=== PATIENT | female | born 1980 | race Caucasian/White ===

== ENCOUNTER 2016-08-14 10:49 | Emergency (ER) | payer OTHER ==
[2016-08-14] MEDS ORDERED: ONDANSETRON 4MG/2ML VIAL (J2405) As Ordered ONE (11:55)
[2016-08-14 12:23] LABS: BASO % 0.4 % (0.0-1.0); EOS # 0.1 K/mm3 (0.0-0.50); LARGE UNSTAINED CELL # 0.1 K/mm3 (0.0-0.4); LYMPH # 1.6 K/mm3 (1.5-4.5); LYMPH % 28.2 % (24.0-44.0); MEAN CORPUSCULAR HEMOGLOBIN 30.6 pg (27.0-33.0); MEAN CORPUSCULAR HGB CONC 35.1 g/dl (32.0-36.5); MEAN CORPUSCULAR VOLUME 87.3 fl (80.0-96.0); MONO # 0.3 K/mm3 (0.0-0.8); MONO % 5.7 % (0.0-5.0); NEUTROPHILS # 3.2 K/mm3 (1.8-7.7); NEUTROPHILS % 61.7 % (36.0-66.0); PLATELET COUNT, AUTOMATED 205 k/mm3 (150-450); RED CELL DISTRIBUTION WIDTH 11.9 % (11.5-14.5); WHITE BLOOD COUNT 5.2 K/mm3 (4.0-10.0)
[2016-08-14 12:45] LABS: ANION GAP 7 MEQ/L (8-16); BLOOD UREA NITROGEN 15 MG/DL (7-18); CALCIUM LEVEL 8.7 MG/DL (8.5-10.1); CARBON DIOXIDE LEVEL 29 MEQ/L (21-32); CHLORIDE LEVEL 104 MEQ/L (98-107); CREATININE FOR GFR 0.76 MG/DL (0.55-1.02); GLOMERULAR FILTRATION RATE > 60.0 (>60); GLUCOSE, FASTING 88 MG/DL (70-105); SODIUM LEVEL 140 MEQ/L (136-145)
[2016-08-14] MEDS ORDERED: KETOROLAC 30 MG/ML VIAL (J1885) As Ordered ONE (13:25)
[2016-08-14 13:27] LABS: INR 0.95
--- NOTE | 2016-08-14 14:45 | EDDOCDS ---
Physician Documentation [facility] Name: Randi Paz Age: 36 yrs Sex: Female : 1980 Arrival Date: 08/14/2016 Time: 10:49 Bed 11 Private MD: Disposition: 08/14/16 13:44 Discharged to Home/Self Care. Impression: Palpitations, Viral infection, unspecified. - Condition is Stable. - Discharge Instructions: Palpitations, Viral Infections. - Medication Reconciliation, Local Pharmacy Hours form. - Follow up: Private Physician; When: Call to arrange an appointment; Reason: Further diagnostic work-up, Recheck today's complaints, Continuance of care. - Problem is new. - Symptoms are unchanged. Historical: - Allergies: norethindrone (bulk); Nortriptyline; Protopic; adhesives tape; - Home Meds: 1. midadrine 5 mg three times a day 2. potassium citrate 10 mEq (1,080 mg) oral TbER 2 tabs twice a day 3. Depakote 250 mg Oral TbEC 1 tab 2 times per day 4. Adderall XR 20 mg Oral cp24 1 cap once daily 5. magnesium oxide 400 mg Oral tab twice a day 6. B2 100 mg daily 7. vitmain d 2000 units daily 8. gabapentin 6% cream as needed 9. Tylenol 1000mg Oral as needed (Last dose: 08/14/2016 06:30) - PMHx: ADD; cervical stenosis; lichen sclerosis; Migraines; neck pain; sponge kidneys; lightheadedness; hypokalemia; - PSHx: Carpal Tunnel Repair- Bilateral; Cholecystectomy; Tonsillectomy; Breast Augmentation; Breast Reduction; tummy tuck; partial hysterectomy; ganglion cyst; periurethral cyst; Laparoscopy; labial plasty; Tubal ligation; - Social history: Smoking status: Patient states former smoker of tobacco. No barriers to communication noted, The patient speaks fluent Estonian, Speaks appropriately for age. - Family history: No immediate family members are acutely ill. - : The pt / caregiver states he / she is not on anticoagulants. Home medication list is obtained from the patient. - Exposure Risk Screening:: None identified. 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 2 in. (157.48 cm); Pain 4/10; 13:46 BP 103 / 64 (auto/); mb9 13:46 Pulse 82 MON; Resp 17; Temp 97.4(T); Pulse Ox 98% ; Pain 0/10; mb9 10:51 Body Mass Index 26.52 (65.77 kg, 157.48 cm) [facility] MDM: 11:27 [facility] Payment Agreement was scanned into [employer] and attached to record. lg 11:28 Financial registration complete. lg 11:34 Child Care Teacher/Pulse Ox/q 30 min VS ordered. btw 11:34 IV Saline Lock ordered. btw 11:34 Rhythm Strip to chart ordered. btw 11:34 Ondansetron 4 mg IVP once ordered. btw 11:34 NS 0.9% 1000 ml IV at bolus once ordered. btw 11:39 BASIC METABOLIC PROFILE Ordered. EDMS 11:40 CBC WITH DIFFERENTIAL Ordered. EDMS 11:40 CARDIAC MARKER PANEL Ordered. EDMS 11:41 ECG WITH READING ER PHYS ordered. EDMS 12:56 Prothrombin Time Profile\E\INR Ordered. EDMS 12:57 Urinalysis Ordered. EDMS 12:57 Urine Culture Ordered. EDMS 13:04 D-DIMER QUANT Ordered. EDMS 13:12 BASIC METABOLIC PROFILE Reviewed. btw 13:12 CBC WITH DIFFERENTIAL Reviewed. btw 13:12 CARDIAC MARKER PANEL Reviewed. btw 13:20 ketorolac 30 mg IVP once ordered. btw 13:34 Urinalysis Reviewed. btw 13:34 Prothrombin Time Profile\E\INR Reviewed. btw 13:34 D-DIMER QUANT Reviewed. btw Administered Medications: 12:20 Drug: Ondansetron 4 mg [ondansetron HCl 2 mg/mL intravenous solution (2 mL)] Route: mb9 IVP; Site: right antecubital; 13:23 Follow up: Response: Nausea is resolved mb9 12:20 Drug: NS 0.9% 1000 ml [sodium chloride 0.9 % intravenous solution] Route: IV; Rate: mb9 bolus; Site: right antecubital; 13:28 Drug: ketorolac 30 mg [ketorolac 30 mg/mL (1 mL) injection solution (1 mL)] Route: IVP; mb9 Site: right antecubital; Signatures: Dispatcher [employer] EDMS Ingrid Hanley, RN RN Sharon Strange, Linden Reg lg Marco Mcintosh PA PA btw Belles, MichaelRN RN mb9 The chart was reviewed and I authenticate all verbal orders and agree with the evaluation and treatment provided.Corrections: (The following items were deleted from the chart) 13:03 12:56 BASIC METABOLIC PROFILE+LAB ordered. EDMS EDMS 13:03 12:56 CBC WITH DIFFERENTIAL+LAB ordered. EDMS EDMS 13:03 12:56 CARDIAC INJURY PROFILE+LAB ordered. EDMS EDMS 13:03 12:56 TROPONIN+LAB ordered. EDMS EDMS 13:03 12:57 D-DIMER QUANT+LAB ordered. EDMS EDMS 13:45 12:57 ECG WITH READING ER PHYS+CARDIAG ordered. EDMS EDMS Attachments: 11:27 [facility] Payment Agreement lg MTDD
--- NOTE | 2016-08-14 14:45 | EDDOCDS ---
Nurse's Notes [facility] Name: Randi Paz Age: 36 yrs Sex: Female : 1980 Arrival Date: 08/14/2016 Time: 10:49 Bed 11 Private MD: Diagnosis: Palpitations;Viral infection, unspecified Presentation: 08/14 10:54 Presenting complaint: Patient states: nausea and fluttering in chest. nausea is common srm for her but worse the last few days. pain in arms, legs, low back and abd pain. hx of sponge kidney disease so has a lot of low back pain. legs hurts frequently. was on augmentin 2 weeks ago. then z pack for ear pain, ? strep. yesterday urinated a lot and today not as much. history of sever lightheadedness and that's getting worse. saw PMD last week and was told to drink more water. Acute neurological deficits are not present. Mechanism of Injury: No Mechanism of Injury. Adult Sepsis Screening: The patient does not have new or worsening altered mentation. Patient's respiratory rate is less than 22. Systolic blood pressure is greater than 100. Patient has a qSOFA score of 0- Negative Sepsis Screen. Suicide/Homicide risk assessment- the patient denies having any suicidal and/or homicidal ideations and does not present with any other emotional, behavioral or mental health complaints. Status: The patient is a dependent. Transition of care: patient was not received from another setting of care. 10:54 Acuity: KEITH Level 3 srm 10:54 Method Of Arrival: Walkin/Carried/Asstd srm Triage Assessment: 11:00 General: Appears in no apparent distress, Behavior is appropriate for age, cooperative. srm Pain: Pain currently is 4 out of 10 on a pain scale. HIV screening NA for this visit Offered previously. Musculoskeletal: Reports arms, legs hurt. 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 midadrine 5 mg three times a day 2. potassium citrate 10 mEq (1,080 mg) oral TbER 2 tabs twice a day 3. Depakote 250 mg Oral TbEC 1 tab 2 times per day 4. Adderall XR 20 mg Oral cp24 1 cap once daily 5. magnesium oxide 400 mg Oral tab twice a day 6. B2 100 mg daily 7. vitmain d 2000 units daily 8. gabapentin 6% cream as needed 9. Tylenol 1000mg Oral as needed (Last dose: 08/14/2016 06:30) - PMHx: ADD; cervical stenosis; lichen sclerosis; Migraines; neck pain; sponge kidneys; lightheadedness; hypokalemia; - PSHx: Carpal Tunnel Repair- Bilateral; Cholecystectomy; Tonsillectomy; Breast Augmentation; Breast Reduction; tummy tuck; partial hysterectomy; ganglion cyst; periurethral cyst; Laparoscopy; labial plasty; Tubal ligation; - Social history: Smoking status: Patient states former smoker of tobacco. No barriers to communication noted, The patient speaks fluent Indonesian, Speaks appropriately for age. - Family history: No immediate family members are acutely ill. - : The pt / caregiver states he / she is not on anticoagulants. Home medication list is obtained from the patient. - Exposure Risk Screening:: None identified. Screenin:20 Screening information is obtained from the patient. Fall risk: No risks identified. mb9 Assistance ADL's: requires no assistance with activities of daily living. Abuse/DV Screen: The patient / caregiver reports he/she is: not in a situation that causes fear, pain or injury. Nutritional screening: No deficits noted. Advance Directives: There is no active DNR order. home support is adequate. Assessment: 12:19 General: Appears in no apparent distress, Behavior is appropriate for age, cooperative. mb9 Pain: Denies pain. Neurological: Level of Consciousness is awake, alert, Oriented to person, place, time. Cardiovascular: Heart tones S1 S2 present Rhythm is sinus tachycardia. Respiratory: Airway is patent Respiratory effort is even, unlabored, Breath sounds are clear bilaterally. 13:22 Reassessment: Patient appears in no apparent distress at this time. Patient states mb9 feeling better. General: Appears in no apparent distress, comfortable, Behavior is appropriate for age, cooperative. Pain: Location: headache Pain currently is 3 out of 10 on a pain scale. Respiratory: Airway is patent Respiratory effort is even, unlabored. Vital Signs: 10:51 BP 136 / 77; Pulse 113; Resp 18; Temp 98.2; Pulse Ox 98% ; Weight 65.77 kg; Height 5 jlm ft. 2 in. (157.48 cm); Pain 4/10; 13:46 BP 103 / 64 (auto/); mb9 13:46 Pulse 82 MON; Resp 17; Temp 97.4(T); Pulse Ox 98% ; Pain 0/10; mb9 10:51 Body Mass Index 26.52 (65.77 kg, 157.48 cm) [facility] Vitals: 10:51 Log In Time: August 14, 2016 at 10:51. [facility] ED Course: 10:51 Patient visited by Stephanie Sen, Assistant Elementary Teacher. [facility] 10:51 Patient moved to Waiting [facility] 10:57 Triage Initiated srm 11:01 Patient moved to Triage 2 srm 11:27 Marco Mcintosh PA is PHCP. btw 11:27 Vale Padron MD is Attending Physician. btw 11:27 [facility] Payment Agreement was scanned into [email or web address] and attached to record. 11:28 Patient visited by Marco Mcintosh PA. btw 11:48 Patient moved to 9 [facility] 11:53 Kisha Blankenship,RN is Primary Nurse. [facility] 11:53 Patient moved to 11 kp 12:10 Patient visited by Susan Julian. sew 12:10 change release manager on. Pulse ox on. NIBP on. sew 12:10 EKG done. (by ED staff). Reviewed by Marco RICCI. sew 12:19 CARDIAC MARKER PANEL Sent. mb9 12:19 CBC WITH DIFFERENTIAL Sent. mb9 12:19 BASIC METABOLIC PROFILE Sent. mb9 12:20 The patient / caregiver is instructed regarding the plan of care and ED course. mb9 12:20 Inserted saline lock: 18 gauge in right antecubital area and blood collected. The mb9 patient tolerated the procedure well. 13:15 D-DIMER QUANT Sent. mb9 13:15 Urine Culture Sent. mb9 13:15 Urinalysis Sent. mb9 13:23 Patient visited by Orion Payne RN. mb9 13:46 Discontinued IV lock intact, bleeding controlled, pressure dressing applied, No mb9 redness/swelling at site. No procedures done that require assistance. Administered Medications: 12:20 Drug: Ondansetron 4 mg [ondansetron HCl 2 mg/mL intravenous solution (2 mL)] Route: mb9 IVP; Site: right antecubital; 13:23 Follow up: Response: Nausea is resolved 9 12:20 Drug: NS 0.9% 1000 ml [sodium chloride 0.9 % intravenous solution] Route: IV; Rate: mb9 bolus; Site: right antecubital; 13:28 Drug: ketorolac 30 mg [ketorolac 30 mg/mL (1 mL) injection solution (1 mL)] Route: IVP; mb9 Site: right antecubital; Order Results: Lab Order: Prothrombin Time Profile\E\INR; SPEC'M 08/14/16 12:16 Test: PROTHROMBIN TIME; Value: 12.8; Range: 12.3-14.5; Units: SECONDS; Status: F Test: INR; Value: 0.95; Status: F Test Note: ; THERAPUTIC HUMAN INR VALUES INDICATIONS NORMAL RANGES PROPHYLAXIS/TREATMENT OF: VENOUS THROMBOSIS 2.0-3.0 PULMONARY EMBOLISM 2.0-3.0 PREVENTION OF SYSTEMIC EMBOLISM FROM: TISSUE HEART VALVES 2.0-3.0 ACUTE MYOCARDIAL INFARCTION 2.0-3.0 VALVULAR HEART DISEASE 2.0-3.0 ATRIAL FIBRILLATION 2.0-3.0 MECHANICAL VALVES(HIGH RISK) 2.5-3.5 RECURRENT MYOCARDIAL INFARCTION 2.5-3.5 Lab Order: Urinalysis; SPEC'M 08/14/16 13:12 Test: APPEARANCE, URINE; Value: CLEAR; Range: CLEAR; Status: F Test: COLOR, URINE; Value: YELLOW; Range: YELLOW; Status: F Test: PH,URINE; Value: 8.0; Range: 5.0-9.0; Units: UNITS; Status: F Test: SPECIFIC GRAVITY URINE AUTO; Value: 1.024; Range: 1.002-1.035; Status: F Test: PROTEIN, URINE AUTO; Value: 1+; Range: NEGATIVE; Abnormal: Above high normal; Units: mg/dL; Status: F Test: GLUCOSE, URINE (UA) AUTO; Value: NEGATIVE; Range: NEGATIVE; Units: mg/dL; Status: F Test: KETONE, URINE AUTO; Value: TRACE; Range: NEGATIVE; Abnormal: Above high normal; Units: mg/dL; Status: F Test: UROBILINOGEN, URINE AUTO; Value: 0.2; Range: 0.0-2.0; Units: mg/dL; Status: F Test: BILIRUBIN, URINE AUTO; Value: NEGATIVE; Range: NEGATIVE; Status: F Test: NITRITE, URINE AUTO; Value: NEGATIVE; Range: NEGATIVE; Status: F Test: LEUKOCYTE ESTERASE, URINE AUTO; Value: NEGATIVE; Range: NEGATIVE; Status: F Test: BLOOD, URINE BLOOD; Value: NEGATIVE; Range: NEGATIVE; Status: F Test: WBC, URINE AUTO; Value: 0; Range: 0-3; Units: /HPF; Status: F Test: RBC, URINE AUTO; Value: 4; Range: 0-3; Abnormal: Above high normal; Units: /HPF; Status: F Test: BACTERIA, URINE AUTO; Value: NEGATIVE; Range: NEGATIVE; Status: F Test: SQUAMOUS EPITHELIAL CELL UR AU; Value: 1; Range: 0-6; Units: /HPF; Status: F Test: MUCUS, URINE; Value: SMALL; Range: NEGATIVE; Status: F Test: HYALINE CAST, URINE AUTO; Value: 0; Range: 0-1; Units: /LPF; Status: F Lab Order: BASIC METABOLIC PROFILE; [facility] 08/14/16 12:16 Test: GLUCOSE, FASTING; Value: 88; Range: 70-105; Units: MG/DL; Status: F Test: BLOOD UREA NITROGEN; Value: 15; Range: 7-18; Units: MG/DL; Status: F Test: CREATININE FOR GFR; Value: 0.76; Range: 0.55-1.02; Units: MG/DL; Status: F Test: GLOMERULAR FILTRATION RATE; Value: > 60.0; Range: >60; Status: F Test: SODIUM LEVEL; Value: 140; Range: 136-145; Units: MEQ/L; Status: F Test: POTASSIUM SERUM; Value: 4.0; Range: 3.5-5.1; Units: MEQ/L; Status: F Test: CHLORIDE LEVEL; Value: 104; Range: 98-107; Units: MEQ/L; Status: F Test: CARBON DIOXIDE LEVEL; Value: 29; Range: 21-32; Units: MEQ/L; Status: F Test: ANION GAP; Value: 7; Range: 8-16; Abnormal: Below low normal; Units: MEQ/L; Status: F Test: CALCIUM LEVEL; Value: 8.7; Range: 8.5-10.1; Units: MG/DL; Status: F Test Note: ; Units are mL/min/1.73 m2 Chronic Kidney Disease Staging per NKF: Stage I & II GFR >=60 Normal to Mildly Decreased Stage III GFR 30-59 Moderately Decreased Stage IV GFR 15-29 Severely Decreased Stage V GFR <15 Very Little GFR Left ESRD GFR <15 on REIMBURSEMENT LIAISON Lab Order: CBC WITH DIFFERENTIAL; [facility] 08/14/16 12:16 Test: WHITE BLOOD COUNT; Value: 5.2; Range: 4.0-10.0; Units: K/mm3; Status: F Test: RED BLOOD COUNT; Value: 4.50; Range: 4.00-5.40; Units: M/mm3; Status: F Test: HEMOGLOBIN; Value: 13.8; Range: 12.0-16.0; Units: g/dl; Status: F Test: HEMATOCRIT; Value: 39.3; Range: 36.0-47.0; Units: %; Status: F Test: MEAN CORPUSCULAR VOLUME; Value: 87.3; Range: 80.0-96.0; Units: fl; Status: F Test: MEAN CORPUSCULAR HEMOGLOBIN; Value: 30.6; Range: 27.0-33.0; Units: pg; Status: F Test: MEAN CORPUSCULAR HGB CONC; Value: 35.1; Range: 32.0-36.5; Units: g/dl; Status: F Test: RED CELL DISTRIBUTION WIDTH; Value: 11.9; Range: 11.5-14.5; Units: %; Status: F Test: PLATELET COUNT, AUTOMATED; Value: 205; Range: 150-450; Units: k/mm3; Status: F Test: NEUTROPHILS %; Value: 61.7; Range: 36.0-66.0; Units: %; Status: F Test: LYMPH %; Value: 28.2; Range: 24.0-44.0; Units: %; Status: F Test: MONO %; Value: 5.7; Range: 0.0-5.0; Abnormal: Above high normal; Units: %; Status: F Test: EOS %; Value: 2.0; Range: 0.0-3.0; Units: %; Status: F Test: BASO %; Value: 0.4; Range: 0.0-1.0; Units: %; Status: F Test: LARGE UNSTAINED CELL %; Value: 2.0; Range: 0.0-4.0; Units: %; Status: F Test: NEUTROPHILS #; Value: 3.2; Range: 1.8-7.7; Units: K/mm3; Status: F Test: LYMPH #; Value: 1.6; Range: 1.5-4.5; Units: K/mm3; Status: F Test: MONO #; Value: 0.3; Range: 0.0-0.8; Units: K/mm3; Status: F Test: EOS #; Value: 0.1; Range: 0.0-0.50; Units: K/mm3; Status: F Test: BASO #; Value: 0.0; Range: 0.0-0.2; Units: K/mm3; Status: F Test: LARGE UNSTAINED CELL #; Value: 0.1; Range: 0.0-0.4; Units: K/mm3; Status: F Lab Order: CARDIAC MARKER PANEL; [facility] 08/14/16 12:16 Test: CPK CREATINE PHOSPHOKINASE; Value: 77; Range: 26-192; Units: U/L; Status: F Test: CK-MB VALUE MASS; Value: 1.0; Range: 0.0-3.6; Units: NG/ML; Status: F Test: MB/CK RELATIVE INDEX; Value: 1.29; Range: < OR =4; Status: F Test: TROPONIN I; Value: < 0.02; Range: < 0.10; Units: NG/ML; Status: F Test Note: ; DIAGNOSIS CRITERIA MMB ng/ml Relative Index (RI) NON-AMI < or = 5 N/A ERWIN ZONE > 5 < or = 4 AMI > 5 > 4 Lab Order: D-DIMER QUANT; SPEC'M 08/14/16 12:16 Test: D-DIMER QUANT; Value: 399.0; Range: <500; Units: ng/ml; Status: F Outcome: 13:44 Discharge ordered by Provider. btw 13:46 Discharge Assessment: Patient awake, alert and oriented x 3. No cognitive and/or mb9 functional deficits noted. Patient verbalized understanding of disposition instructions. patient administered narcotics - no. The following High Risk Discharge criteria are identified: None. Discharged to home ambulatory, with significant other. Condition: good Condition: stable Condition: improved. Discharge instructions given to patient, significant other, Instructed on discharge instructions, follow up and referral plans. medication usage, Demonstrated understanding of instructions, medications, No special radiology studies were completed. Property :Personal belongings accompany Pt. 14:44 Patient left the ED. mb9 Signatures: Rosanne Patricio RN RN Ingrid Krishnamurthy RN RN Sharon Strange, Reg Reg Marco Mcintosh PA PA btw Bertha StreetRN RN [facility] Eliel, Stephanie Sánchez, Assistant Elementary Teacher Unit Orion McdanielRN RN mb9 MTDCarlos
--- NOTE | 2016-08-14 18:10 | ECGEPIP ---
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
--- NOTE | 2016-08-16 15:45 | EDDOCDS ---
Nurse's Notes [facility] Name: Raquel Larson Age: 36 yrs Sex: Female : 1980 Arrival Date: 08/14/2016 Time: 10:49 Bed 11 Private MD: Diagnosis: Palpitations;Viral infection, unspecified Presentation: 08/14 10:54 Presenting complaint: Patient states: nausea and fluttering in chest. nausea is common srm for her but worse the last few days. pain in arms, legs, low back and abd pain. hx of sponge kidney disease so has a lot of low back pain. legs hurts frequently. was on augmentin 2 weeks ago. then z pack for ear pain, ? strep. yesterday urinated a lot and today not as much. history of sever lightheadedness and that's getting worse. saw PMD last week and was told to drink more water. Acute neurological deficits are not present. Mechanism of Injury: No Mechanism of Injury. Adult Sepsis Screening: The patient does not have new or worsening altered mentation. Patient's respiratory rate is less than 22. Systolic blood pressure is greater than 100. Patient has a qSOFA score of 0- Negative Sepsis Screen. Suicide/Homicide risk assessment- the patient denies having any suicidal and/or homicidal ideations and does not present with any other emotional, behavioral or mental health complaints. Status: The patient is a dependent. Transition of care: patient was not received from another setting of care. 10:54 Acuity: KEITH Level 3 srm 10:54 Method Of Arrival: Walkin/Carried/Asstd srm Triage Assessment: 11:00 General: Appears in no apparent distress, Behavior is appropriate for age, cooperative. srm Pain: Pain currently is 4 out of 10 on a pain scale. HIV screening NA for this visit Offered previously. Musculoskeletal: Reports arms, legs hurt. 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 midadrine 5 mg three times a day 2. potassium citrate 10 mEq (1,080 mg) oral TbER 2 tabs twice a day 3. Depakote 250 mg Oral TbEC 1 tab 2 times per day 4. Adderall XR 20 mg Oral cp24 1 cap once daily 5. magnesium oxide 400 mg Oral tab twice a day 6. B2 100 mg daily 7. vitmain d 2000 units daily 8. gabapentin 6% cream as needed 9. Tylenol 1000mg Oral as needed (Last dose: 08/14/2016 06:30) - PMHx: ADD; cervical stenosis; lichen sclerosis; Migraines; neck pain; sponge kidneys; lightheadedness; hypokalemia; - PSHx: Carpal Tunnel Repair- Bilateral; Cholecystectomy; Tonsillectomy; Breast Augmentation; Breast Reduction; tummy tuck; partial hysterectomy; ganglion cyst; periurethral cyst; Laparoscopy; labial plasty; Tubal ligation; - Social history: Smoking status: Patient states former smoker of tobacco. No barriers to communication noted, The patient speaks fluent Greenlandic, Speaks appropriately for age. - Family history: No immediate family members are acutely ill. - : The pt / caregiver states he / she is not on anticoagulants. Home medication list is obtained from the patient. - Exposure Risk Screening:: None identified. Screenin:20 Screening information is obtained from the patient. Fall risk: No risks identified. mb9 Assistance ADL's: requires no assistance with activities of daily living. Abuse/DV Screen: The patient / caregiver reports he/she is: not in a situation that causes fear, pain or injury. Nutritional screening: No deficits noted. Advance Directives: There is no active DNR order. home support is adequate. Assessment: 12:19 General: Appears in no apparent distress, Behavior is appropriate for age, cooperative. mb9 Pain: Denies pain. Neurological: Level of Consciousness is awake, alert, Oriented to person, place, time. Cardiovascular: Heart tones S1 S2 present Rhythm is sinus tachycardia. Respiratory: Airway is patent Respiratory effort is even, unlabored, Breath sounds are clear bilaterally. 13:22 Reassessment: Patient appears in no apparent distress at this time. Patient states mb9 feeling better. General: Appears in no apparent distress, comfortable, Behavior is appropriate for age, cooperative. Pain: Location: headache Pain currently is 3 out of 10 on a pain scale. Respiratory: Airway is patent Respiratory effort is even, unlabored. Vital Signs: 10:51 BP 136 / 77; Pulse 113; Resp 18; Temp 98.2; Pulse Ox 98% ; Weight 65.77 kg; Height 5 jlm ft. 2 in. (157.48 cm); Pain 4/10; 13:46 BP 103 / 64 (auto/); mb9 13:46 Pulse 82 MON; Resp 17; Temp 97.4(T); Pulse Ox 98% ; Pain 0/10; mb9 10:51 Body Mass Index 26.52 (65.77 kg, 157.48 cm) [facility] Vitals: 10:51 Log In Time: August 14, 2016 at 10:51. [facility] ED Course: 10:51 Patient visited by Stephanie Sen, Vertical Borer. [facility] 10:51 Patient moved to Waiting [facility] 10:57 Triage Initiated srm 11:01 Patient moved to Triage 2 srm 11:27 David Mcintosh PA is PHCP. btw 11:27 Vale Padron MD is Attending Physician. btw 11:27 [facility] Payment Agreement was scanned into [employer] and attached to record. lg 11:28 Patient visited by David Mcintosh PA. btw 11:48 Patient moved to 9 [facility] 11:53 Kisha Blankenship,RN is Primary Nurse. [facility] 11:53 Patient moved to 11 kp 12:10 Patient visited by Susan Julian. sew 12:10 news analyst on. Pulse ox on. NIBP on. sew 12:10 EKG done. (by ED staff). Reviewed by David RICCI. sew 12:19 CARDIAC MARKER PANEL Sent. mb9 12:19 CBC WITH DIFFERENTIAL Sent. mb9 12:19 BASIC METABOLIC PROFILE Sent. mb9 12:20 The patient / caregiver is instructed regarding the plan of care and ED course. mb9 12:20 Inserted saline lock: 18 gauge in right antecubital area and blood collected. The mb9 patient tolerated the procedure well. 13:15 D-DIMER QUANT Sent. mb9 13:15 Urine Culture Sent. mb9 13:15 Urinalysis Sent. mb9 13:23 Patient visited by Orion Payne,JAMI. mb9 13:46 Discontinued IV lock intact, bleeding controlled, pressure dressing applied, No mb9 redness/swelling at site. No procedures done that require assistance. 18:33 ECG WITH READING ER PHYS Returned. EDMS 21:43 T-Sheet-- Draft Copy was scanned into [employer] and attached to record. klr 08/15 12:13 ECG/EKG was scanned into [employer] and attached to record. gb Administered Medications: 08/14 12:20 Drug: Ondansetron 4 mg [ondansetron HCl 2 mg/mL intravenous solution (2 mL)] Route: mb9 IVP; Site: right antecubital; 13:23 Follow up: Response: Nausea is resolved 9 12:20 Drug: NS 0.9% 1000 ml [sodium chloride 0.9 % intravenous solution] Route: IV; Rate: mb9 bolus; Site: right antecubital; 13:28 Drug: ketorolac 30 mg [ketorolac 30 mg/mL (1 mL) injection solution (1 mL)] Route: IVP; mb9 Site: right antecubital; Order Results: Lab Order: Prothrombin Time Profile\E\INR; SPEC'M 08/14/16 12:16 Test: PROTHROMBIN TIME; Value: 12.8; Range: 12.3-14.5; Units: SECONDS; Status: F Test: INR; Value: 0.95; Status: F Test Note: ; THERAPUTIC HUMAN INR VALUES INDICATIONS NORMAL RANGES PROPHYLAXIS/TREATMENT OF: VENOUS THROMBOSIS 2.0-3.0 PULMONARY EMBOLISM 2.0-3.0 PREVENTION OF SYSTEMIC EMBOLISM FROM: TISSUE HEART VALVES 2.0-3.0 ACUTE MYOCARDIAL INFARCTION 2.0-3.0 VALVULAR HEART DISEASE 2.0-3.0 ATRIAL FIBRILLATION 2.0-3.0 MECHANICAL VALVES(HIGH RISK) 2.5-3.5 RECURRENT MYOCARDIAL INFARCTION 2.5-3.5 Lab Order: Urinalysis; SPEC'M 08/14/16 13:12 Test: APPEARANCE, URINE; Value: CLEAR; Range: CLEAR; Status: F Test: COLOR, URINE; Value: YELLOW; Range: YELLOW; Status: F Test: PH,URINE; Value: 8.0; Range: 5.0-9.0; Units: UNITS; Status: F Test: SPECIFIC GRAVITY URINE AUTO; Value: 1.024; Range: 1.002-1.035; Status: F Test: PROTEIN, URINE AUTO; Value: 1+; Range: NEGATIVE; Abnormal: Above high normal; Units: mg/dL; Status: F Test: GLUCOSE, URINE (UA) AUTO; Value: NEGATIVE; Range: NEGATIVE; Units: mg/dL; Status: F Test: KETONE, URINE AUTO; Value: TRACE; Range: NEGATIVE; Abnormal: Above high normal; Units: mg/dL; Status: F Test: UROBILINOGEN, URINE AUTO; Value: 0.2; Range: 0.0-2.0; Units: mg/dL; Status: F Test: BILIRUBIN, URINE AUTO; Value: NEGATIVE; Range: NEGATIVE; Status: F Test: NITRITE, URINE AUTO; Value: NEGATIVE; Range: NEGATIVE; Status: F Test: LEUKOCYTE ESTERASE, URINE AUTO; Value: NEGATIVE; Range: NEGATIVE; Status: F Test: BLOOD, URINE BLOOD; Value: NEGATIVE; Range: NEGATIVE; Status: F Test: WBC, URINE AUTO; Value: 0; Range: 0-3; Units: /HPF; Status: F Test: RBC, URINE AUTO; Value: 4; Range: 0-3; Abnormal: Above high normal; Units: /HPF; Status: F Test: BACTERIA, URINE AUTO; Value: NEGATIVE; Range: NEGATIVE; Status: F Test: SQUAMOUS EPITHELIAL CELL UR AU; Value: 1; Range: 0-6; Units: /HPF; Status: F Test: MUCUS, URINE; Value: SMALL; Range: NEGATIVE; Status: F Test: HYALINE CAST, URINE AUTO; Value: 0; Range: 0-1; Units: /LPF; Status: F Lab Order: Urine Culture; SPEC'M 08/14/16 13:12 Test: URINE CULTURE; Value: <EXTERNAL COMMENT eCWMed> FULL REPORT IN LAB NOTES (eCW and Medent).; Status: F Test: URINE CULTURE; Value: URINE CULTURE RESULT NO GROWTH CLINICAL SIGNIFICANCE 1 ORGANISM; Status: F Lab Order: BASIC METABOLIC PROFILE; SPEC'M 08/14/16 12:16 Test: GLUCOSE, FASTING; Value: 88; Range: 70-105; Units: MG/DL; Status: F Test: BLOOD UREA NITROGEN; Value: 15; Range: 7-18; Units: MG/DL; Status: F Test: CREATININE FOR GFR; Value: 0.76; Range: 0.55-1.02; Units: MG/DL; Status: F Test: GLOMERULAR FILTRATION RATE; Value: > 60.0; Range: >60; Status: F Test: SODIUM LEVEL; Value: 140; Range: 136-145; Units: MEQ/L; Status: F Test: POTASSIUM SERUM; Value: 4.0; Range: 3.5-5.1; Units: MEQ/L; Status: F Test: CHLORIDE LEVEL; Value: 104; Range: 98-107; Units: MEQ/L; Status: F Test: CARBON DIOXIDE LEVEL; Value: 29; Range: 21-32; Units: MEQ/L; Status: F Test: ANION GAP; Value: 7; Range: 8-16; Abnormal: Below low normal; Units: MEQ/L; Status: F Test: CALCIUM LEVEL; Value: 8.7; Range: 8.5-10.1; Units: MG/DL; Status: F Test Note: ; Units are mL/min/1.73 m2 Chronic Kidney Disease Staging per NKF: Stage I & II GFR >=60 Normal to Mildly Decreased Stage III GFR 30-59 Moderately Decreased Stage IV GFR 15-29 Severely Decreased Stage V GFR <15 Very Little GFR Left ESRD GFR <15 on SUPERVISOR SAWMILL Lab Order: CBC WITH DIFFERENTIAL; SPEC'M 08/14/16 12:16 Test: WHITE BLOOD COUNT; Value: 5.2; Range: 4.0-10.0; Units: K/mm3; Status: F Test: RED BLOOD COUNT; Value: 4.50; Range: 4.00-5.40; Units: M/mm3; Status: F Test: HEMOGLOBIN; Value: 13.8; Range: 12.0-16.0; Units: g/dl; Status: F Test: HEMATOCRIT; Value: 39.3; Range: 36.0-47.0; Units: %; Status: F Test: MEAN CORPUSCULAR VOLUME; Value: 87.3; Range: 80.0-96.0; Units: fl; Status: F Test: MEAN CORPUSCULAR HEMOGLOBIN; Value: 30.6; Range: 27.0-33.0; Units: pg; Status: F Test: MEAN CORPUSCULAR HGB CONC; Value: 35.1; Range: 32.0-36.5; Units: g/dl; Status: F Test: RED CELL DISTRIBUTION WIDTH; Value: 11.9; Range: 11.5-14.5; Units: %; Status: F Test: PLATELET COUNT, AUTOMATED; Value: 205; Range: 150-450; Units: k/mm3; Status: F Test: NEUTROPHILS %; Value: 61.7; Range: 36.0-66.0; Units: %; Status: F Test: LYMPH %; Value: 28.2; Range: 24.0-44.0; Units: %; Status: F Test: MONO %; Value: 5.7; Range: 0.0-5.0; Abnormal: Above high normal; Units: %; Status: F Test: EOS %; Value: 2.0; Range: 0.0-3.0; Units: %; Status: F Test: BASO %; Value: 0.4; Range: 0.0-1.0; Units: %; Status: F Test: LARGE UNSTAINED CELL %; Value: 2.0; Range: 0.0-4.0; Units: %; Status: F Test: NEUTROPHILS #; Value: 3.2; Range: 1.8-7.7; Units: K/mm3; Status: F Test: LYMPH #; Value: 1.6; Range: 1.5-4.5; Units: K/mm3; Status: F Test: MONO #; Value: 0.3; Range: 0.0-0.8; Units: K/mm3; Status: F Test: EOS #; Value: 0.1; Range: 0.0-0.50; Units: K/mm3; Status: F Test: BASO #; Value: 0.0; Range: 0.0-0.2; Units: K/mm3; Status: F Test: LARGE UNSTAINED CELL #; Value: 0.1; Range: 0.0-0.4; Units: K/mm3; Status: F Lab Order: CARDIAC MARKER PANEL; SPEC'M 08/14/16 12:16 Test: CPK CREATINE PHOSPHOKINASE; Value: 77; Range: 26-192; Units: U/L; Status: F Test: CK-MB VALUE MASS; Value: 1.0; Range: 0.0-3.6; Units: NG/ML; Status: F Test: MB/CK RELATIVE INDEX; Value: 1.29; Range: < OR =4; Status: F Test: TROPONIN I; Value: < 0.02; Range: < 0.10; Units: NG/ML; Status: F Test Note: ; DIAGNOSIS CRITERIA MMB ng/ml Relative Index (RI) NON-AMI < or = 5 N/A ERWIN ZONE > 5 < or = 4 AMI > 5 > 4 Lab Order: D-DIMER QUANT; SPEC'M 08/14/16 12:16 Test: D-DIMER QUANT; Value: 399.0; Range: <500; Units: ng/ml; Status: F Radiology Order: ECG WITH READING ER PHYS Test: ECG WITH READING ER PHYS REASON FOR EXAMINATION: PALPITATIONS; Stationary ECG Study; [facility] - ED; ; Test Date: 2016-08-14; Pat Name: RAQUEL LARSON Department:; Room: -; Gender: F Product Builder: patrick; : 1980 Requested By: DAVID Redding PA-C; Order Number: [id number] Reading MD: Jesús Villalta; Measurements; Intervals [place]; Rate: 90 P: 73; NE: 131 QRS: 36; QRSD: 85 T: 38; QT: 363; QTc: 446; Interpretive Statements; SINUS RHYTHM; ; Electronically Signed On 08-14-2016 18:10:26 EST by Jesús Villalta; Outcome: 13:44 Discharge ordered by Provider. btw 13:46 Discharge Assessment: Patient awake, alert and oriented x 3. No cognitive and/or mb9 functional deficits noted. Patient verbalized understanding of disposition instructions. patient administered narcotics - no. The following High Risk Discharge criteria are identified: None. Discharged to home ambulatory, with significant other. Condition: good Condition: stable Condition: improved. Discharge instructions given to patient, significant other, Instructed on discharge instructions, follow up and referral plans. medication usage, Demonstrated understanding of instructions, medications, No special radiology studies were completed. Property :Personal belongings accompany Pt. 14:44 Patient left the ED. mb9 Signatures: Dispatcher [employer] EDMS Rosanne Patricio RN Ingrid Macario RN RN [facility] Lindsey Sullivan, Reg Reg gb Sharon Fuller, Reg Reg lg David Mcintosh PA PA btw Bertha Street RN RN [facility] Susan Julian Jessie, Vertical Borer Unit Orion Mcdaniel RN RN mb9 Redder, Kathie klr Chart Complete MTDD
--- NOTE | 2016-08-16 15:45 | EDDOCDS ---
Physician Documentation [facility] Name: Randi Paz Age: 36 yrs Sex: Female : 1980 Arrival Date: 08/14/2016 Time: 10:49 Bed 11 Private MD: Disposition: 08/14/16 13:44 Discharged to Home/Self Care. Impression: Palpitations, Viral infection, unspecified. - Condition is Stable. - Discharge Instructions: Palpitations, Viral Infections. - Medication Reconciliation, Local Pharmacy Hours form. - Follow up: Private Physician; When: Call to arrange an appointment; Reason: Further diagnostic work-up, Recheck today's complaints, Continuance of care. - Problem is new. - Symptoms are unchanged. Historical: - Allergies: norethindrone (bulk); Nortriptyline; Protopic; adhesives tape; - Home Meds: 1. midadrine 5 mg three times a day 2. potassium citrate 10 mEq (1,080 mg) oral TbER 2 tabs twice a day 3. Depakote 250 mg Oral TbEC 1 tab 2 times per day 4. Adderall XR 20 mg Oral cp24 1 cap once daily 5. magnesium oxide 400 mg Oral tab twice a day 6. B2 100 mg daily 7. vitmain d 2000 units daily 8. gabapentin 6% cream as needed 9. Tylenol 1000mg Oral as needed (Last dose: 08/14/2016 06:30) - PMHx: ADD; cervical stenosis; lichen sclerosis; Migraines; neck pain; sponge kidneys; lightheadedness; hypokalemia; - PSHx: Carpal Tunnel Repair- Bilateral; Cholecystectomy; Tonsillectomy; Breast Augmentation; Breast Reduction; tummy tuck; partial hysterectomy; ganglion cyst; periurethral cyst; Laparoscopy; labial plasty; Tubal ligation; - Social history: Smoking status: Patient states former smoker of tobacco. No barriers to communication noted, The patient speaks fluent Yoruba, Speaks appropriately for age. - Family history: No immediate family members are acutely ill. - : The pt / caregiver states he / she is not on anticoagulants. Home medication list is obtained from the patient. - Exposure Risk Screening:: None identified. 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 2 in. (157.48 cm); Pain 4/10; 13:46 BP 103 / 64 (auto/); mb9 13:46 Pulse 82 MON; Resp 17; Temp 97.4(T); Pulse Ox 98% ; Pain 0/10; mb9 10:51 Body Mass Index 26.52 (65.77 kg, 157.48 cm) [facility] MDM: 11:27 [facility] Agreement was scanned into [employer] and attached to record. lg 11:28 Financial registration complete. lg 11:34 Experimental Electronics Developer/Pulse Ox/q 30 min VS ordered. btw 11:34 IV Saline Lock ordered. btw 11:34 Rhythm Strip to chart ordered. btw 11:34 Ondansetron 4 mg IVP once ordered. btw 11:34 NS 0.9% 1000 ml IV at bolus once ordered. btw 11:39 BASIC METABOLIC PROFILE Ordered. EDMS 11:40 CBC WITH DIFFERENTIAL Ordered. EDMS 11:40 CARDIAC MARKER PANEL Ordered. EDMS 11:41 ECG WITH READING ER PHYS ordered. EDMS 12:56 Prothrombin Time Profile\E\INR Ordered. EDMS 12:57 Urinalysis Ordered. EDMS 12:57 Urine Culture Ordered. EDMS 13:04 D-DIMER QUANT Ordered. EDMS 13:12 BASIC METABOLIC PROFILE Reviewed. btw 13:12 CBC WITH DIFFERENTIAL Reviewed. btw 13:12 CARDIAC MARKER PANEL Reviewed. btw 13:20 ketorolac 30 mg IVP once ordered. btw 13:34 Urinalysis Reviewed. btw 13:34 Prothrombin Time Profile\E\INR Reviewed. btw 13:34 D-DIMER QUANT Reviewed. btw 21:43 T-Sheet-- Draft Copy was scanned into [employer] and attached to record. klr 08/15 12:13 ECG/EKG was scanned into [employer] and attached to record. gb Administered Medications: 08/14 12:20 Drug: Ondansetron 4 mg [ondansetron HCl 2 mg/mL intravenous solution (2 mL)] Route: mb9 IVP; Site: right antecubital; 13:23 Follow up: Response: Nausea is resolved mb9 12:20 Drug: NS 0.9% 1000 ml [sodium chloride 0.9 % intravenous solution] Route: IV; Rate: mb9 bolus; Site: right antecubital; 13:28 Drug: ketorolac 30 mg [ketorolac 30 mg/mL (1 mL) injection solution (1 mL)] Route: IVP; mb9 Site: right antecubital; Signatures: Dispatcher [employer] Ingrid Quiñonez, JAMI FARRELL [facility] Lindsey Sullivan, Reg Reg gb Sharon Fuller, Reg Reg lg Marco Mcintosh PA PA btw Belles, Michael, RN RN mb9 Kim Huitron The chart was reviewed and I authenticate all verbal orders and agree with the evaluation and treatment provided.Corrections: (The following items were deleted from the chart) 13:03 12:56 BASIC METABOLIC PROFILE+LAB ordered. EDMS EDMS 13:03 12:56 CBC WITH DIFFERENTIAL+LAB ordered. EDMS EDMS 13:03 12:56 CARDIAC INJURY PROFILE+LAB ordered. EDMS EDMS 13:03 12:56 TROPONIN+LAB ordered. EDMS EDMS 13:03 12:57 D-DIMER QUANT+LAB ordered. EDMS EDMS 13:45 12:57 ECG WITH READING ER PHYS+CARDIAG ordered. EDMS EDMS Attachments: 11:27 [facility] [place] lg 21:43 T-Sheet-- Draft Copy klr 08/15 12:13 ECG/EKG gb Chart Complete MTDD
--- NOTE | 2016-08-16 15:45 | EDDOCDS ---
Physician Documentation [facility] Name: Randi Paz Age: 36 yrs Sex: Female : 1980 Arrival Date: 08/14/2016 Time: 10:49 Bed 11 Private MD: Disposition: 08/14/16 13:44 Discharged to Home/Self Care. Impression: Palpitations, Viral infection, unspecified. - Condition is Stable. - Discharge Instructions: Palpitations, Viral Infections. - Medication Reconciliation, Local Pharmacy Hours form. - Follow up: Private Physician; When: Call to arrange an appointment; Reason: Further diagnostic work-up, Recheck today's complaints, Continuance of care. - Problem is new. - Symptoms are unchanged. Historical: - Allergies: norethindrone (bulk); Nortriptyline; Protopic; adhesives tape; - Home Meds: 1. midadrine 5 mg three times a day 2. potassium citrate 10 mEq (1,080 mg) oral TbER 2 tabs twice a day 3. Depakote 250 mg Oral TbEC 1 tab 2 times per day 4. Adderall XR 20 mg Oral cp24 1 cap once daily 5. magnesium oxide 400 mg Oral tab twice a day 6. B2 100 mg daily 7. vitmain d 2000 units daily 8. gabapentin 6% cream as needed 9. Tylenol 1000mg Oral as needed (Last dose: 08/14/2016 06:30) - PMHx: ADD; cervical stenosis; lichen sclerosis; Migraines; neck pain; sponge kidneys; lightheadedness; hypokalemia; - PSHx: Carpal Tunnel Repair- Bilateral; Cholecystectomy; Tonsillectomy; Breast Augmentation; Breast Reduction; tummy tuck; partial hysterectomy; ganglion cyst; periurethral cyst; Laparoscopy; labial plasty; Tubal ligation; - Social history: Smoking status: Patient states former smoker of tobacco. No barriers to communication noted, The patient speaks fluent Kinyarwanda, Speaks appropriately for age. - Family history: No immediate family members are acutely ill. - : The pt / caregiver states he / she is not on anticoagulants. Home medication list is obtained from the patient. - Exposure Risk Screening:: None identified. 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 Height 5 ft. 2 in. (157.48 cm); Pain 4/10; 13:46 BP 103 / 64 (auto/); mb9 13:46 Pulse 82 MON; Resp 17; Temp 97.4(T); Pulse Ox 98% ; Pain 0/10; mb9 10:51 Body Mass Index 26.52 (65.77 kg, 157.48 cm) [facility] MDM: 11:27 [facility] [place] Agreement was scanned into [employer] and attached to record. lg 11:28 Financial registration complete. lg 11:34 K 9 Police Officer/Pulse Ox/q 30 min VS ordered. btw 11:34 IV Saline Lock ordered. btw 11:34 Rhythm Strip to chart ordered. btw 11:34 Ondansetron 4 mg IVP once ordered. btw 11:34 NS 0.9% 1000 ml IV at bolus once ordered. btw 11:39 BASIC METABOLIC PROFILE Ordered. EDMS 11:40 CBC WITH DIFFERENTIAL Ordered. EDMS 11:40 CARDIAC MARKER PANEL Ordered. EDMS 11:41 ECG WITH READING ER PHYS ordered. EDMS 12:56 Prothrombin Time Profile\E\INR Ordered. EDMS 12:57 Urinalysis Ordered. EDMS 12:57 Urine Culture Ordered. EDMS 13:04 D-DIMER QUANT Ordered. EDMS 13:12 BASIC METABOLIC PROFILE Reviewed. btw 13:12 CBC WITH DIFFERENTIAL Reviewed. btw 13:12 CARDIAC MARKER PANEL Reviewed. btw 13:20 ketorolac 30 mg IVP once ordered. btw 13:34 Urinalysis Reviewed. btw 13:34 Prothrombin Time Profile\E\INR Reviewed. btw 13:34 D-DIMER QUANT Reviewed. btw 21:43 T-Sheet-- Draft Copy was scanned into [employer] and attached to record. klr 08/15 12:13 ECG/EKG was scanned into [employer] and attached to record. gb Administered Medications: 08/14 12:20 Drug: Ondansetron 4 mg [ondansetron HCl 2 mg/mL intravenous solution (2 mL)] Route: mb9 IVP; Site: right antecubital; 13:23 Follow up: Response: Nausea is resolved mb9 12:20 Drug: NS 0.9% 1000 ml [sodium chloride 0.9 % intravenous solution] Route: IV; Rate: mb9 bolus; Site: right antecubital; 13:28 Drug: ketorolac 30 mg [ketorolac 30 mg/mL (1 mL) injection solution (1 mL)] Route: IVP; mb9 Site: right antecubital; Signatures: Dispatcher [employer] Ingrid Quiñonez, JAMI FARRELL [facility] Lindsey Sullivan, Reg Reg gb Sharon Fuller, Reg Reg lg Marco Mcintosh PA PA btw Belles, Michael, RN RN mb9 Kim Huitron The chart was reviewed and I authenticate all verbal orders and agree with the evaluation and treatment provided.Corrections: (The following items were deleted from the chart) 13:03 12:56 BASIC METABOLIC PROFILE+LAB ordered. EDMS EDMS 13:03 12:56 CBC WITH DIFFERENTIAL+LAB ordered. EDMS EDMS 13:03 12:56 CARDIAC INJURY PROFILE+LAB ordered. EDMS EDMS 13:03 12:56 TROPONIN+LAB ordered. EDMS EDMS 13:03 12:57 D-DIMER QUANT+LAB ordered. EDMS EDMS 13:45 12:57 ECG WITH READING ER PHYS+CARDIAG ordered. EDMS EDMS Attachments: 11:27 [facility] [place] Payment Agreement lg 21:43 T-Sheet-- Draft Copy klr 08/15 12:13 ECG/EKG gb Chart Complete MTDD
== END 2016-08-14 14:44 | disposition home or self-care (01) ==
LOC: M ED 10:49
DX: R00.2 Palpitations (principal); M54.9 Dorsalgia, unspecified; R10.9 Unspecified abdominal pain; F90.8 Attention-deficit hyperactivity disorder, other type; M48.02 Spinal stenosis, cervical region; Q61.5 Medullary cystic kidney; E87.6 Hypokalemia; L90.0 Lichen sclerosus et atrophicus; G43.909 Migraine, unspecified, not intractable, without status migrainosus; Z79.899 Other long term (current) drug therapy; Z88.8 Allergy status to other drugs, medicaments and biological substances; Z91.048 Other nonmedicinal substance allergy status
CPT/HCPCS: 36415; 80048; 81001; 82550; 82553; 85025; 85379; 85610; 87086; 93005; 93041; 96374; 96375; 99284; G0463; J1885; J2405

== ENCOUNTER → 2016-08-15 | Outpatient (CLI) | payer OTHER ==
[2016-08-15 12:41] LABS: MAGNESIUM LEVEL 2.3 MG/DL (1.8-2.4)
== END ==
LOC: M LAB 10:47
PROVIDERS: ATTEND Physician Assistant Medical
DX: R51 Headache (principal); E55.9 Vitamin D deficiency, unspecified; R00.2 Palpitations; R20.9 Unspecified disturbances of skin sensation

== ENCOUNTER → 2017-01-25 | Outpatient (CLI) | payer OTHER ==
[~2017-01-25] MED LIST: ADDE20CA3; CYMB1CAP4; MAG-400T7; MIDO5TA; VITA2000
[2017-01-25 09:07] LABS: BASO % 0.4 % (0.0-1.0); EOS # 0.1 K/mm3 (0.0-0.50); EOS % 2.3 % (0.0-3.0); LYMPH # 1.2 K/mm3 (1.5-4.5); LYMPH % 26.3 % (24.0-44.0); MEAN CORPUSCULAR HEMOGLOBIN 30.3 pg (27.0-33.0); MEAN CORPUSCULAR HGB CONC 34.3 g/dl (32.0-36.5); MEAN CORPUSCULAR VOLUME 88.5 fl (80.0-96.0); MONO # 0.3 K/mm3 (0.0-0.8); MONO % 6.8 % (0.0-5.0); NEUTROPHILS # 2.8 K/mm3 (1.8-7.7); NEUTROPHILS % 61.9 % (36.0-66.0); RED CELL DISTRIBUTION WIDTH 11.5 % (11.5-14.5); WHITE BLOOD COUNT 4.6 K/mm3 (4.0-10.0)
[2017-01-25 09:38] LABS: INR 0.93
[2017-01-25 09:42] LABS: PERCENT SATURATION 22.1 % (13.2-45.0)
== END ==
LOC: M LAB 08:06
PROVIDERS: ATTEND Family Medicine
DX: K62.5 Hemorrhage of anus and rectum (principal)

== ENCOUNTER 2017-01-26 14:32 | Emergency (ER) | payer OTHER ==
[~2017-01-26] VITALS: Ht 157.5 cm; Wt 72.7 kg
[2017-01-26] MEDS ORDERED: MIDO5TA (14:48)
[2017-01-26] MEDS ORDERED: CYMB1CAP4 (14:48)
[2017-01-26] MEDS ORDERED: ADDE20CA3 (14:48)
[2017-01-26] MEDS ORDERED: MAG-400T7 (14:48)
[2017-01-26] MEDS ORDERED: VITA2000 (14:48)
[2017-01-26] MEDS ORDERED: diphenhydrAMINE INJ 50MG/ML VIAL (J1200) IV STA (15:52)
[2017-01-26] MEDS ORDERED: METOCLOPRAMIDE INJ 10MG/2ML VIAL (J2765) IV ONE (16:00)
[2017-01-26] MEDS ORDERED: NS 1,000 ML IV ONE (16:00)
[2017-01-26] MEDS ORDERED: KETOROLAC 30 MG/ML VIAL (J1885) IV ONE (16:00)
[2017-01-26 16:14] LABS: BASO % 0.5 % (0.0-1.0); EOS # 0.1 K/mm3 (0.0-0.50); EOS % 1.2 % (0.0-3.0); LARGE UNSTAINED CELL # 0.1 K/mm3 (0.0-0.4); LARGE UNSTAINED CELL % 0.9 % (0.0-4.0); LYMPH # 1.5 K/mm3 (1.5-4.5); LYMPH % 15.6 % (24.0-44.0); MEAN CORPUSCULAR HEMOGLOBIN 30.5 pg (27.0-33.0); MEAN CORPUSCULAR HGB CONC 34.5 g/dl (32.0-36.5); MEAN CORPUSCULAR VOLUME 88.5 fl (80.0-96.0); MONO # 0.4 K/mm3 (0.0-0.8); MONO % 4.2 % (0.0-5.0); NEUTROPHILS # 6.8 K/mm3 (1.8-7.7); NEUTROPHILS % 77.6 % (36.0-66.0); PLATELET COUNT, AUTOMATED 238 k/mm3 (150-450); RED CELL DISTRIBUTION WIDTH 11.9 % (11.5-14.5); WHITE BLOOD COUNT 8.7 K/mm3 (4.0-10.0)
[2017-01-26 16:31] LABS: ANION GAP 10 MEQ/L (8-16); BLOOD UREA NITROGEN 13 MG/DL (7-18); CALCIUM LEVEL 9.4 MG/DL (8.5-10.1); CARBON DIOXIDE LEVEL 27 MEQ/L (21-32); CHLORIDE LEVEL 101 MEQ/L (98-107); CREATININE FOR GFR 0.71 MG/DL (0.55-1.02); GLOMERULAR FILTRATION RATE > 60.0 (>60); GLUCOSE, FASTING 102 MG/DL (70-105); MAGNESIUM LEVEL 2.4 MG/DL (1.8-2.4); POTASSIUM SERUM 3.8 MEQ/L (3.5-5.1); SODIUM LEVEL 138 MEQ/L (136-145)
[2017-01-26 17:08] VITALS: BP 121/83
== END 2017-01-26 17:10 | disposition home or self-care (01) ==
LOC: M ED 14:32
DX: G43.001 Migraine without aura, not intractable, with status migrainosus (principal); N28.1 Cyst of kidney, acquired; Z88.8 Allergy status to other drugs, medicaments and biological substances; Z79.899 Other long term (current) drug therapy
CPT/HCPCS: 80048; 83735; 85025; 93005; 96361; 96374; 96375; 99283; G0463; J1200; J1885; J2765

== ENCOUNTER → 2017-01-26 | Outpatient (REF) | payer OTHER | LOC: M SFHCLERA 13:26 | PROVIDERS: ATTEND Nurse Practitioner Family | DX: R53.81 Other malaise (principal) ==

== ENCOUNTER → 2017-03-21 | Outpatient (CLI) | payer OTHER ==
[2017-03-23 00:07] LABS: Lyme Disease IgG/IgM Antibodie <0.91 ISR (0.00-0.90); Lyme Disease IgM Ab Quantitati <0.80 index (0.00-0.79)
== END ==
LOC: M LAB 10:39
PROVIDERS: ATTEND Physician Assistant Medical
DX: M79.1 Myalgia (principal); M25.50 Pain in unspecified joint; R51 Headache

== ENCOUNTER → 2017-05-24 | Outpatient (REF) | payer OTHER | LOC: M SFHCLERA 16:18 | PROVIDERS: ATTEND Physician Assistant | DX: J02.9 Acute pharyngitis, unspecified (principal) ==

== ENCOUNTER → 2017-12-13 | Outpatient (CLI) | payer OTHER | LOC: M RAD 11:29 | DX: M47.812 Spondylosis without myelopathy or radiculopathy, cervical region (principal) | CPT/HCPCS: 72040 ==

== ENCOUNTER → 2018-01-10 | Outpatient (CLI) | payer OTHER | LOC: M RAD 14:41 | DX: M47.812 Spondylosis without myelopathy or radiculopathy, cervical region (principal) ==

== ENCOUNTER 2018-02-08 15:20 | Emergency (ER) | payer OTHER ==
[2018-02-08] MEDS: ONDANSETRON 4 MG ORAL DISINTEGRATING TAB (Q0162 PER 1MG) PO (17:22)
== END 2018-02-08 17:53 | disposition home or self-care (01) ==
LOC: M ED 15:20
DX: M54.2 Cervicalgia (principal); Z98.1 Arthrodesis status; G43.909 Migraine, unspecified, not intractable, without status migrainosus; Z88.8 Allergy status to other drugs, medicaments and biological substances; Z79.899 Other long term (current) drug therapy; Z98.890 Other specified postprocedural states
CPT/HCPCS: Q0162

== ENCOUNTER → 2018-07-06 | Outpatient (CLI) | payer OTHER ==
[~2018-07-06] MED LIST changes: +DICL1GEL3; +LATA5OPD; +METH1TAB40; +PERC5TAB12 PO; +ZOFR4TAB14 PO
--- NOTE | 2018-07-06 16:25 | REP ---
Cervical spine three views History: Spondylosis. Comparison: 01/10/2018 The patient is status post C 5-7 anterior spinal fusion. A fixation plate and bone graft material are present. There is no acute fracture or subluxation. The intervertebral discs are normal in height. Impression: The patient is status post C5-C7 anterior spinal fusion. There is anatomic alignment. Electronically Signed by Len Hester MD 07/06/2018 04:16 P
== END ==
LOC: M RAD 15:12
PROVIDERS: ATTEND Neurological Surgery
DX: Z98.1 Arthrodesis status (principal)

== ENCOUNTER → 2018-07-13 | Outpatient (CLI) | payer OTHER ==
--- NOTE | 2018-07-13 16:40 | REP ---
MR cervical spine without contrast History: Spondylosis Comparison: 06/03/2011 A disc bulge is present at the C4-5 level. There is minimal effacement of the thecal sac without spinal cord compression. The C4 neural foramina are patent. The patient is status post C5-C7 anterior spinal fusion. A fixation plate and bone graft material are present. The spinal canal and neural foramina are patent at the C5-6 level. Posterior osteophytes are present at the C6-7 level. There is minimal effacement of the thecal sac without spinal cord compression. The previously noted disc protrusion is not seen. The C6 neural foramina are patent. There is no other disc bulge or herniation. The remaining neural foramina are patent. The spinal cord is normal in signal intensity. Normal signal intensity is present in the cervical vertebral bodies. There is no subluxation. Impression: 1. The patient is status post C5-C7 anterior spinal fusion. There is anatomic alignment. The previously noted disc protrusion at the C5-6 level is not seen. 2. There is cervical spondylosis at the C4-5 and C5-6 levels without spinal cord compression. Findings at the C4-5 level are new. Electronically Signed by Len Hester MD 07/13/2018 04:31 P
== END ==
LOC: M PLARAD 15:49
PROVIDERS: ATTEND Neurological Surgery
DX: M47.22 Other spondylosis with radiculopathy, cervical region (principal)

== ENCOUNTER → 2018-08-31 | Outpatient (CLI) | payer OTHER | LOC: M LAB 12:56 | PROVIDERS: ATTEND Physician Assistant Medical | DX: R63.5 Abnormal weight gain (principal); R53.83 Other fatigue ==

== ENCOUNTER → 2018-11-23 | Outpatient (CLI) | payer OTHER ==
[~2018-11-23] MED LIST changes: +LATA0.0013; -LATA5OPD
--- NOTE | 2018-11-23 11:35 | REP ---
CERVICAL SPINE, TWO VIEWS: HISTORY: Spondylosis. COMPARISON: 07/06/2018. The patient is status post previous C5 to 7 anterior spinal fusion and new C4-5 anterior spinal fusion. Metal hardware and bone graft material are present. There is no acute fracture or subluxation. The intervertebral discs are normal in height. IMPRESSION: The patient is status post C4 to 7 anterior spinal fusion. There is anatomic alignment. Electronically Signed by Len Hester MD 11/23/2018 11:36 A
== END ==
LOC: M RAD 09:40
PROVIDERS: ATTEND Neurological Surgery
DX: M47.22 Other spondylosis with radiculopathy, cervical region (principal)

== ENCOUNTER → 2019-01-11 | Outpatient (CLI) | payer OTHER ==
--- NOTE | 2019-01-11 10:16 | REP ---
Cervical spine series: Two views. History : Postop. Comparison study: October. Findings: AP and lateral views of the cervical spine demonstrate a ventral discectomy and fusion plating across C5-6 and C6-7. Metallic screws are seen along the ventral aspect at the C4-5 level fusing these levels as well.. These findings are unchanged. Prevertebral soft tissues are not swollen. No malalignment. There is straightening of the normal cervical lordosis. Impression: Status post fusion hardware ventrally C4 through C7 unchanged in position. Electronically Signed by Bran Larson MD 01/11/2019 10:07 A
== END ==
LOC: M RAD 08:32
PROVIDERS: ATTEND Neurological Surgery
DX: Z98.1 Arthrodesis status (principal)

== ENCOUNTER → 2019-02-07 | Outpatient (CLI) | payer OTHER ==
[2019-02-07 08:15] LABS: BASO % 0.5 % (0.0-1.0); EOS # 0.3 10^3/uL (0.0-0.50); EOS % 5.8 % (0.0-3.0); HEMATOCRIT 39.4 % (36.0-47.0); HEMOGLOBIN 13.2 g/dl (12.0-15.5); LYMPH # 1.7 10^3/uL (1.5-4.5); LYMPH % 29.3 % (24.0-44.0); MEAN CORPUSCULAR HEMOGLOBIN 29.6 pg (27.0-33.0); MEAN CORPUSCULAR HGB CONC 33.5 g/dl (32.0-36.5); MEAN CORPUSCULAR VOLUME 88.3 fl (80.0-96.0); MONO # 0.5 10^3/uL (0.0-0.8); MONO % 8.2 % (0.0-5.0); NEUTROPHILS # 3.3 10^3/uL (1.8-7.7); NEUTROPHILS % 55.9 % (36.0-66.0); PLATELET COUNT, AUTOMATED 249 10^3/uL (150-450); RED BLOOD COUNT 4.46 10^6/uL (4.00-5.40); WHITE BLOOD COUNT 5.9 10^3/uL (4.0-10.0)
== END ==
LOC: M LAB 06:43
PROVIDERS: ATTEND Internal Medicine Nephrology
DX: D72.829 Elevated white blood cell count, unspecified (principal)

== ENCOUNTER → 2019-05-01 | Outpatient (CLI) | payer OTHER ==
--- NOTE | 2019-05-01 17:21 | REP ---
Chest x-ray: Two views. History: Cough. Comparison chest x-ray: March 25, 2014. Findings: The patient is status post ventral discectomy and fusion plating in the lower cervical spine. There are clips in right upper quadrant of the abdomen. The lungs are well inflated and clear. Pleural angles are sharp. Heart size is normal. Pulmonary vasculature is not increased. No significant bony abnormality. Impression: No active disease. Status post cervical spine fusion and right upper quadrant clips. Electronically Signed by Bran Larson MD 05/01/2019 07:17 P
== END ==
LOC: M LRY 16:19
PROVIDERS: ATTEND Physician Assistant
DX: R05 Cough (principal); Z98.1 Arthrodesis status
CPT/HCPCS: 71046; G0463

== ENCOUNTER → 2019-06-24 | Outpatient (CLI) | payer OTHER ==
--- NOTE | 2019-06-24 20:09 | REP ---
Clinical: Dyspnea . Comparison: 05/01/2019 . Technique: PA and lateral. Findings: The mediastinum and cardiac silhouette are normal. The lung pinto are clear and without acute consolidation, effusion, or pneumothorax. The skeletal structures are intact and normal. Impression: 1. No acute cardiopulmonary process. Electronically Signed by Miller Bal MD 06/24/2019 07:59 P
== END ==
LOC: M LRY 19:38
PROVIDERS: ATTEND Physician Assistant
DX: R07.1 Chest pain on breathing (principal)
CPT/HCPCS: 71046; 96372; G0463; J1885

== ENCOUNTER → 2020-08-10 | Outpatient (REF) | payer OTHER ==
[~2020-08-10] MED LIST changes: +METH-1164; -METH1TAB40
[2020-08-10 16:43] LABS: BASO # 0.1 10^3/uL (0.0-0.2); EOS # 0.5 10^3/uL (0.0-0.5); EOS % 7.4 % (0.0-3.0); HEMATOCRIT 44.1 % (36.0-47.0); HEMOGLOBIN 14.6 g/dl (12.0-15.5); LYMPH % 31.5 % (24.0-44.0); MEAN CORPUSCULAR HGB CONC 33.1 g/dl (32.0-36.5); MEAN CORPUSCULAR VOLUME 87.7 fl (80.0-96.0); MONO # 0.5 10^3/uL (0.0-0.8); MONO % 8.3 % (0.0-8.0); NEUTROPHILS # 3.2 10^3/uL (1.5-8.5); NEUTROPHILS % 51.6 % (36.0-66.0); PLATELET COUNT, AUTOMATED 264 10^3/uL (150-450); RED BLOOD COUNT 5.03 10^6/uL (4.00-5.40); WHITE BLOOD COUNT 6.2 10^3/uL (4.0-10.0)
[2020-08-10 16:47] LABS: ALBUMIN 3.8 GM/DL (3.2-5.2); ALT/SGPT 18 U/L (12-78); BILIRUBIN,TOTAL 0.3 MG/DL (0.2-1.0); BLOOD UREA NITROGEN 15 MG/DL (7-18); C REACTIVE PROTEIN QUANTITATIV 0.68 MG/DL (0.00-0.30); CALCIUM LEVEL 9.3 MG/DL (8.5-10.1); CARBON DIOXIDE LEVEL 28 MEQ/L (21-32); CHLORIDE LEVEL 104 MEQ/L (98-107); CHOLESTEROL LEVEL 216 MG/DL (<200); CHOLESTEROL RISK RATIO 4.235 (<5); GLOMERULAR FILTRATION RATE > 60.0 (>60); GLUCOSE, FASTING 82 MG/DL (70-100); HDL CHOLESTEROL 51 MG/DL (>40); LDL CHOLESTEROL 123 MG/DL (<100); NON-HDL-C 165 MG/DL; POTASSIUM SERUM 4.5 MEQ/L (3.5-5.1); SODIUM LEVEL 139 MEQ/L (136-145); TOTAL PROTEIN 7.2 GM/DL (6.4-8.2); TRIGLYCERIDES LEVEL 212 MG/DL (<150)
[2020-08-10 20:06] LABS: ERYTHROCYTE SEDIMENTATION RATE 9 mm/hr (0-20)
[2020-08-12 15:07] LABS: Lyme Disease IgG/IgM Antibodie <0.91 ISR (0.00-0.90); Lyme Disease IgM Ab Quantitati <0.80 index (0.00-0.79)
== END ==
LOC: M LAB REF 16:16
PROVIDERS: ATTEND Family Medicine Addiction Medicine
DX: Z00.00 Encounter for general adult medical examination without abnormal findings (principal); M25.50 Pain in unspecified joint

== ENCOUNTER → 2020-11-10 | Outpatient (CLI) | payer OTHER ==
[2020-11-10 16:31] LABS: C REACTIVE PROTEIN QUANTITATIV 0.66 MG/DL (0.00-0.30); MAGNESIUM LEVEL 2.1 MG/DL (1.8-2.4); PHOSPHORUS LEVEL 2.7 MG/DL (2.5-4.9)
[2020-11-10 16:44] LABS: TOTAL 25(OH) VITAMIN D 25.3 NG/ML (30.0-100.0)
--- NOTE | 2020-11-11 02:38 | REP ---
INDICATION: FIBROMYALGIA,PAIN IN UNSPECIFIED JOINT COMPARISON: None. TECHNIQUE: AP, lateral, bilateral oblique views left and right wrist. FINDINGS: The carpal bones, surrounding osseous structures, soft tissues, and joint spaces are relatively symmetric bilaterally and demonstrate generalized age-related changes. There is no evidence for acute fracture or dislocation. No overt osteoarthritic or inflammatory arthritic changes are identified. No subcutaneous emphysema or radiodense foreign body. IMPRESSION: Relatively symmetric bilateral age-appropriate examination. <Electronically signed by Miller Bal > 11/11/20 [id number]
--- NOTE | 2020-11-11 02:39 | REP ---
INDICATION: FIBROMYALGIA,PAIN IN UNSPECIFIED JOINT COMPARISON: None. TECHNIQUE: AP, lateral, bilateral oblique and sunrise views right and left knee.. FINDINGS: The osseous structures and joint spaces are intact, relatively symmetric and essentially age-appropriate. There is no evidence for acute fracture or dislocation. No overt degenerative changes are appreciated. No joint effusion is appreciated. Surrounding soft tissues are unremarkable. No subcutaneous emphysema or radiodense foreign body. IMPRESSION: Symmetric age-appropriate bilateral knee radiograph series. <Electronically signed by Miller Bal > 11/11/20 0525
--- NOTE | 2020-11-11 02:51 | REP ---
INDICATION: FIBROMYALGIA,PAIN IN UNSPECIFIED JOINT. COMPARISON: None. TECHNIQUE: AP view of the pelvis with neutral and frog-lateral views of the right and left hip. FINDINGS: No evidence for acute pelvic pathology, fracture or injury. Bilateral hip joints demonstrate minimal sclerosis along the acetabular roof along with symmetric joint spaces. No periarticular calcifications or loose bodies are identified. No evidence for acute or healed injury. IMPRESSION: Essentially symmetric age-appropriate examination of the pelvis and bilateral hips. <Electronically signed by Miller Bal > 11/11/20 1319
--- NOTE | 2020-11-11 02:59 | REP ---
INDICATION: FIBROMYALGIA,PAIN IN UNSPECIFIED JOINT COMPARISON: None. TECHNIQUE: AP, lateral, bilateral oblique views right and left hand. FINDINGS: The osseous structures and joint spaces are intact, symmetric and essentially age-appropriate. There is no evidence for acute fracture or dislocation. Surrounding soft tissues are unremarkable. No subcutaneous emphysema or radiodense foreign body. IMPRESSION: Essentially symmetric age-appropriate bilateral hand radiograph series. <Electronically signed by Miller Bal > 11/11/20 0254
== END ==
LOC: M LAB 15:01
PROVIDERS: ATTEND Internal Medicine
DX: M79.7 Fibromyalgia (principal); R79.82 Elevated C-reactive protein (CRP); M25.50 Pain in unspecified joint; M19.049 Primary osteoarthritis, unspecified hand; M70.60 Trochanteric bursitis, unspecified hip

== ENCOUNTER 2020-12-13 11:39 | Emergency (ER) | payer OTHER ==
[~2020-12-13] VITALS: Ht 160 cm; Wt 84.5 kg
[2020-12-13] MEDS ORDERED: POTA540T PO (12:03)
[2020-12-13] MEDS ORDERED: CELE1CAP9 (12:03)
[2020-12-13] MEDS ORDERED: AMPH1CAP4 (12:03)
[2020-12-13] MEDS ORDERED: CYCL-707 (12:03)
[2020-12-13 14:38] LABS: BASO % 0.7 % (0.0-1.0); EOS # 0.3 10^3/uL (0.0-0.5); EOS % 4.5 % (0.0-3.0); HEMATOCRIT 43.7 % (36.0-47.0); HEMOGLOBIN 14.2 g/dl (12.0-15.5); LYMPH # 1.7 10^3/uL (1.5-5.0); LYMPH % 28.3 % (24.0-44.0); MEAN CORPUSCULAR HEMOGLOBIN 28.7 pg (27.0-33.0); MEAN CORPUSCULAR HGB CONC 32.5 g/dl (32.0-36.5); MEAN CORPUSCULAR VOLUME 88.5 fl (80.0-96.0); MONO # 0.4 10^3/uL (0.0-0.8); MONO % 6.7 % (2.0-8.0); NEUTROPHILS # 3.5 10^3/uL (1.5-8.5); NEUTROPHILS % 59.5 % (36.0-66.0); PLATELET COUNT, AUTOMATED 261 10^3/uL (150-450); RED BLOOD COUNT 4.94 10^6/uL (4.00-5.40); WHITE BLOOD COUNT 5.9 10^3/uL (4.0-10.0)
[2020-12-13 15:16] VITALS: BP 118/74
[2020-12-13 15:19] LABS: AMPHETAMINES LEVEL URINE POSITIVE (NEGATIVE); BARBITURATES URINE NEGATIVE (NEGATIVE); BENZODIAZEPINES URINE NEGATIVE (NEGATIVE); CANNABINOIDS URINE NEGATIVE (NEGATIVE); COCAINE METABOLITE URINE NEGATIVE (NEGATIVE); METHADONE URINE NEGATIVE (NEGATIVE); OPIATES URINE NEGATIVE (NEGATIVE); PHENCYCLIDINE URINE NEGATIVE (NEGATIVE)
[2020-12-13 16:09] LABS: BLOOD UREA NITROGEN 19 MG/DL (7-18); CALCIUM LEVEL 8.9 MG/DL (8.5-10.1); CARBON DIOXIDE LEVEL 28 MEQ/L (21-32); CHLORIDE LEVEL 106 MEQ/L (98-107); CREATININE FOR GFR 0.61 MG/DL (0.55-1.30); FREE THYROXINE INDEX 2.6 % (1.3-4.8); GLOMERULAR FILTRATION RATE > 60.0 (>60); GLUCOSE, FASTING 86 MG/DL (70-100); MAGNESIUM LEVEL 2.3 MG/DL (1.8-2.4); SODIUM LEVEL 139 MEQ/L (136-145); T UPTAKE 29 % (30-39)
[2020-12-14 15:57] LABS: VITAMIN B12 LEVEL 1271 PG/ML (247-911)
[2020-12-15 15:08] LABS: Lyme Disease IgG/IgM Antibodie <0.91 ISR (0.00-0.90); Lyme Disease IgM Ab Quantitati <0.80 index (0.00-0.79)
== END 2020-12-13 16:52 | disposition home or self-care (01) ==
LOC: M ED 11:39
DX: R20.2 Paresthesia of skin (principal); G43.909 Migraine, unspecified, not intractable, without status migrainosus; Z79.899 Other long term (current) drug therapy

== ENCOUNTER → 2021-01-29 | Outpatient (CLI) | payer OTHER ==
[~2021-01-29] MED LIST changes: +AMPH1CAP4; +CELE1CAP9; +CYCL-707; +POTA540T PO
--- NOTE | 2021-01-29 19:53 | REP ---
INDICATION: EFFUSION, RIGHT FOOT COMPARISON: None. TECHNIQUE: There are four views. FINDINGS: Mineralization is normal. There is no fracture or dislocation. There are no calcifications or foreign bodies. There is mild joint space narrowing of the great toe MTP articulation compatible with mild articular cartilage atrophy and early osteoarthritis. There are no lytic, blastic or destructive skeletal changes. The joint spaces are otherwise unremarkable. 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 Otherwise, negative right foot. <Electronically signed by Christian Dalal > 01/29/211948
== END ==
LOC: M RAD 16:47
PROVIDERS: ATTEND Physician Assistant
DX: M25.474 Effusion, right foot (principal)

== ENCOUNTER → 2021-03-19 | Outpatient (CLI) | payer OTHER | LOC: M LAB 10:48 | PROVIDERS: ATTEND Internal Medicine | DX: E55.9 Vitamin D deficiency, unspecified (principal) ==

== ENCOUNTER → 2021-05-28 | Outpatient (CLI) | payer OTHER ==
[~2021-05-28] MED LIST changes: +ACET-897 PO; +ADDE25CA PO; +AIMO70IN SC; -CELE1CAP9; +CELE1CAP9 PO; +CYCL-707 PO; +DICL1GEL3 TOP; +ERGO500029 PO; +POTA10808 PO
== END ==
LOC: M LABSMTC 10:44
PROVIDERS: ATTEND Anesthesiology
DX: Z01.812 Encounter for preprocedural laboratory examination (principal); Z20.822 Contact with and (suspected) exposure to COVID-19

== ENCOUNTER → 2021-05-31 | Outpatient (CLI) | payer OTHER ==
[2021-05-31 17:49] LABS: BASO # 0.1 10^3/uL (0.0-0.2); BASO % 0.6 % (0.0-1.0); EOS # 0.2 10^3/uL (0.0-0.5); EOS % 2.3 % (0.0-3.0); HEMATOCRIT 43.9 % (36.0-47.0); HEMOGLOBIN 14.5 g/dl (12.0-15.5); LYMPH # 2.6 10^3/uL (1.5-5.0); LYMPH % 32.3 % (24.0-44.0); MEAN CORPUSCULAR HEMOGLOBIN 29.4 pg (27.0-33.0); MONO # 0.7 10^3/uL (0.0-0.8); NEUTROPHILS # 4.5 10^3/uL (1.5-8.5); NEUTROPHILS % 55.5 % (36.0-66.0); PLATELET COUNT, AUTOMATED 267 10^3/uL (150-450); RED BLOOD COUNT 4.93 10^6/uL (4.00-5.40)
[2021-05-31 18:20] LABS: BLOOD UREA NITROGEN 17 MG/DL (7-18); CALCIUM LEVEL 9.5 MG/DL (8.5-10.1); CARBON DIOXIDE LEVEL 28 MEQ/L (21-32); CHLORIDE LEVEL 104 MEQ/L (98-107); CREATININE FOR GFR 0.72 MG/DL (0.55-1.30); GLOMERULAR FILTRATION RATE > 60.0 (>58); GLUCOSE, FASTING 90 MG/DL (70-100); POTASSIUM SERUM 3.6 MEQ/L (3.5-5.1); SODIUM LEVEL 139 MEQ/L (136-145)
== END ==
LOC: M LAB 16:32
PROVIDERS: ATTEND Family Medicine Addiction Medicine
DX: M21.619 Bunion of unspecified foot (principal)

== ENCOUNTER 2021-06-02 07:38 | Day surgery (SDC) | payer OTHER ==
[~2021-06-02] VITALS: Ht 158.8 cm; Wt 80.8 kg
[~2021-06-02 07:38] MED LIST changes: +LR 1,000 ML IV ONE; +ceFAZolin SOD 2 GM in IV 1 EA IV ONE
--- OUTSIDE RECORDS SUMMARY | 2021-06-02 07:50 | CCD | Continuity of Care Document ---
Author Author Randi PUGH Organization Unknown Address [address] [place] [id number] Phone [phone] Care Team Providers Care Urology Nurse Name Role Phone Chidi Trent MD AUTM [phone] Problems Description No Information Available Social History Type Date Description Comments Sex Unknown Allergies and adverse reactions Description No Information Available Medications Description No Information Available Immunizations Description No Information Available Vital Signs Date Vital Result Comment 03/18/2021 10:16am Body Temperature 97.1 F Height 62.5 inches 5'2.50" Weight 185.38 lb BMI (Body Mass Index) 33.4 kg/m2 Results Description No Information Available Procedures Date Code Description Status 05/28/2021 33534 Office/Outpatient Established Mo d MDM 30-39 Min Completed 03/18/2021 38843 Office/Outpatient New Moderate M DM 45-59 Minutes Completed 03/18/2021 64261 X-Ray Knee Complete W/Obliques & Tunnel And/Or Standing Views Completed 03/18/2021 90301 Inject/Drain Joint/Bursa Major C ompleted Medical Devices Description No Information Available Encounters Type Date Location Provider Dx Diagnosis Office Visit 05/28/2021 3:00p Gorge Pugh PA-C M1 7.11 Unilateral primary osteoarthritis, right knee M71.21 Synovial cyst of popliteal s pace [[facility]], right knee Office Visit 03/18/2021 10:00a Gorge Pugh PA-C M1 7.11 Unilateral primary osteoarthritis, right knee M71.21 Synovial cyst of popliteal s pace [[facility]es], right knee Assessments Date Code Description Provider 05/28/2021 M17.11 Unilateral primary osteoarthriti s, right knee Sis Pugh PA-C 05/28/2021 M71.21 Synovial cyst of popliteal space [[facility]], right knee Sis Pugh PA-C 03/18/2021 M17.11 Unilateral primary osteoarthriti s, right knee Sis Pugh PA-C 03/18/2021 M71.21 Synovial cyst of popliteal space [[facility]es], right knee Sis Pugh PA-C Plan of Treatment 05/28/2021 - Sis Pugh PA-C* M17.11 Unilateral primary osteoarthritis, right knee* Follow up:* f/u PRN * M71.21 Synovial cyst of popliteal space [[facility]orges], right knee Functional Status Description No Information Available Mental Status Description No Information Available Referrals Description No Information Available
--- OUTSIDE RECORDS SUMMARY | 2021-06-02 07:50 | CCD ---
Author Organization Unknown Address [address] [place] [id number] Phone [phone] Care Team Providers Care System Support Technician Name Role Phone Armand Sinclair Carlos Unavailable Unavailable Allergies Notes: NORTHINDRONE BC - Reaction: depr ession | TAPE ADHESIVES - Reaction: rash Medications Name Status Start Date Stop Date celecoxib 200 mg capsule TAKE 1 CAPSULE BY MOUTH ONCE DAILY WITH FOOD FOR 30 DAYS Active Not available cephalexin 500 mg capsule Completed 2020 cyclobenzaprine 10 mg tablet as needed Active Not available dextroamphetamine-amphetamine ER 25 mg 2 4hr capsule,extend release TAKE 1 CAPSULE BY MOUTH TWICE DAILY Active Not available ergocalciferol (vitamin D2) 1,250 mcg (5 0,000 unit) capsule TAKE 1 CAPSULE BY MOUTH ONCE A WEEK Active Not available fluconazole 150 mg tablet Completed 2020 fluticasone propionate 50 mcg/actuation nasal spray,suspension C ompleted 07/27/2020 Fluzone Quad (PF) 60 mcg (15 mcg x 4)/0.5 mL IM syring e Completed 12/03/2020 latanoprost 0.005 % eye drops Active No t available methylprednisolone 4 mg tablets in a dos e pack USE DIRECTED Completed 03/12/2021 potas and sod citrate-citric acid 550 mg -500 mg-334 mg/5 mL oral soln mixed with breakfast smoothie 2 times daily Completed 03/12/2021 potassium citrate ER 10 mEq (1,080 mg) tablet,extended release A ctive Not available prednisone 10 mg tablet Completed 07/27/19 21 prednisone 20 mg tablet TAKE 1 TABLET BY MOUTH TWICE DAILY FOR 5 DAYS Completed 07/27/2020 sodium citrate-citric acid 500 mg-334 mg/5 mL oral solution Comp leted 07/27/2020 tizanidine 4 mg tablet TAKE 1 TABLET BY MOUTH NEEDED AT BEDTIME Completed 03/12/2021 Problems Name Status Onset Date Source Attention Deficit Hyperactivity Disorder Active 020 History Influenza Vaccine Needed Active 03/13/2020 History Multiple Joint Pain Active 07/27/2020 Body Mass Index 30+ - Obesity Active 12/03/2020 Procedures Date Name Performed by 01/29/2021 XR, Foot [facility] Radiology [address] [place] [address] [id number] (Work [address]) Notes: tubal ligation 2002, gallbladder 2004, perirurthral cyst, carpal tunnel both hand, breast reduction/ reconstruction, partial hysterectomy 2011, ganglion cyst right wrist, cervical fusion 2017,2019 neck, Tonsillectomy 2009 Results Lab Results Date Name Specimen Result Interpretation Description Value Range Status Address 12/13/2020 CBC W/ Auto Diff Normal White Blood Count 5.9 10 4.0-10.0 10 [facility]: [address] [place] [address] Normal Red Blood Count 4.94 10 4.00-5.40 10 [facility]: [address] [place] [address] Normal Hemoglobin 14.2 g/dL 12.0-15.5 g/dL [facility]: [address] [place] [address] Normal Hematocrit 43.7 % 36.0-47.0 % [facility]: [address] [place] [address] Normal Mean Corpuscular Volume 88.5 fL 80.0 -96.0 fL [facility]: [address] [place] [address] Normal Mean Corpuscular Hemoglobin 28.7 pg 27.0-33.0 pg [facility]: [address] [place] [address] Normal Mean Corpuscular HGB Conc 32.5 g/dL 32.0-36.5 g/dL [facility]: [address] [place] [address] Normal Red Cell Distribution Width 12.2 % 1 1.5-14.5 % [facility]: [address] [place] [address] Normal Platelet Count, Automated 261 10 150 -450 10 [facility]: [address] [place] [address] Normal Neutrophils % 59.5 % 36.0-66.0 % [facility]: [address] [place] [address] Normal Lymph % 28.3 % 24.0-44.0 % [facility]: [address] [facility] Normal Stanton % 6.7 % 2.0-8.0 % [facility]: [address] [facility] High Eos % 4.5 % 0.0-3.0 % [facility]: [address] [facility] Normal Baso % 0.7 % 0.0-1.0 % [facility]: [address] [facility] Normal Immature Granulocyte % 0.3 % 0-3.0 % [facility]: [address] [facility] Normal Nucleated Red Blood Cell % 0.0 % 0- 0 % [facility]: [address] [facility] Normal Neutrophils # 3.5 10 1.5-8.5 10 [facility]: [address] [facility] Normal Lymph # 1.7 10 1.5-5.0 10 [facility]: [address] [facility] Normal Stanton # 0.4 10 0.0-0.8 10 [facility]: [address] [facility] Normal Eos # 0.3 10 0.0-0.5 10 [facility]: [address] [facility] Normal Baso # 0.0 10 0.0-0.2 10 [facility]: [address] [facility] 12/13/2020 Drug Screen, Urine High Amphetamines Leve l Urine positive negative [facility]: [address] [facility] Normal Barbiturates Urine negative negative [facility]: [address] [facility] Normal Benzodiazepines Urine negative negat lorne [facility]: [address] [facility] Normal Cannabinoids Urine negative negative [facility]: [address] [facility] Normal Cocaine Metabolite Urine negative ne gative [facility]: [address] [facility] Normal Methadone Urine negative negative [facility]: [address] [facility] Normal Opiates Urine negative negative [facility]: [address] [facility] Normal Phencyclidine Urine negative negativ e [facility]: [address] [facility] 12/13/2020 BMP, Serum or Plasma Normal Glucose, Fastin g 86 mg/dL 70-100 mg/dL [facility]: [address] [facility] High Blood Urea Nitrogen 19 mg/dL 7-18 mg /dL [facility]: [address] [facility] Normal Creatinine for GFR 0.61 mg/dL 0.55-1 .30 mg/dL [facility]: [address] [facility] Normal Glomerular Filtration Rate > 60.0 >6 0 [facility]: [address] [facility] Normal Sodium Level 139 mEq/L 136-145 mEq/L [facility]: [address] [facility] Normal Potassium Serum 5.0 mEq/L 3.5-5.1 mE q/L [facility]: [address] [facility] Normal Chloride Level 106 mEq/L 98-107 mEq/ L [facility]: [address] [facility] Normal Carbon Dioxide Level 28 mEq/L 21-32 mEq/L [facility]: [address] [facility] Low Anion Gap 5 mEq/L 8-16 mEq/L [facility]: [address] [facility] Normal Calcium Level 8.9 mg/dL 8.5-10.1 mg/ dL [facility]: [address] [facility] 12/13/2020 Magnesium, Serum or Plasma Normal Magnesium Level 2.3 mg/dL 1.8-2.4 mg/dL [facility]: [address] [facility] 12/13/2020 Thyroid Panel, Serum Low T Uptake 29 % 30 -39 % [facility]: [address] [facility] Normal Thyroxine (T4) 9.0 ug/dL 4.5-12.0 ug /dL [facility]: [address] [facility] Normal Free Thyroxine Index 2.6 % 1.3-4.8 % [facility]: [address] [facility] Normal Thyroid Stimulating Hormone 1. 360 uIU/mL 0.358-3.740 uIU/mL [facility]: [address] [facility] 12/13/2020 Vitamin B12, Serum High Vitamin B12 Level 1271 pg/mL 247-911 pg/mL [facility]: [address] [facility] 12/13/2020 Lyme Disease Igg+igm Ab, Serum Normal Lyme Disease IgG/IgM Antibodie <0.91 isr 0.00-0.90 isr [facility]: [address] [place] [address] Normal Lyme Disease IgM Ab Quantitati <0.80 index 0.00-0.79 index [facility]: [address] [facility] 11/10/2020 Phosphorus Level Normal Phosphorus Level 2 .7 mg/dL 2.5-4.9 mg/dL [facility]: [address] [facility] 11/10/2020 CK (Creatine Kinase) Mb, Quantitative, Blood Hi gh CPK Creatine Phosphokinase 533 U/L 26-192 U/L [facility]: [address] [facility] 11/10/2020 Magnesium, Serum or Plasma Normal Magnesium Level 2.1 mg/dL 1.8-2.4 mg/dL [facility]: [address] [facility] 11/10/2020 Iron, Serum Normal Iron (Fe) 73 ug/dL 50-170 u g/dL [facility]: 0 [facility] 11/10/2020 Vitamin B12, Serum Normal Vitamin B12 Level 500 pg/mL 247-911 pg/mL [facility]: [address] [facility] 11/10/2020 Vitamin D, 25-Hydroxy, Total, Serum Low Total 25(Oh) Vitamin D 25.3 NG/mL 30.0-100.0 NG/mL [facility] nter: [address] [place] [address] 11/10/2020 C Reactive Protein, QN, Serum or Plasma High C Reactive Protein Quantitativ 0.66 mg/dL 0.00-0.30 mg/dL [facility]: [address] [facility] 08/10/2020 CMP, Serum or Plasma Normal Glucose, Fastin g 82 mg/dL 70-100 mg/dL [facility]: [address] [facility] Normal Blood Urea Nitrogen 15 mg/dL 7-18 mg /dL [facility]: [address] [facility] Normal Creatinine for GFR 0.70 mg/dL 0.55-1 .30 mg/dL [facility]: [address] [facility] Normal Glomerular Filtration Rate > 60.0 >6 0 [facility]: [address] [facility] Normal Sodium Level 139 mEq/L 136-145 mEq/L [facility]: [address] [facility] Normal Potassium Serum 4.5 mEq/L 3.5-5.1 mE q/L [facility]: [address] [facility] Normal Chloride Level 104 mEq/L 98-107 mEq/ L [facility]: [address] [facility] Normal Carbon Dioxide Level 28 mEq/L 21-32 mEq/L [facility]: [address] [facility] Low Anion Gap 7 mEq/L 8-16 mEq/L [facility]: [address] [facility] Normal Calcium Level 9.3 mg/dL 8.5-10.1 mg/ dL [facility]: [address] [facility] Normal AST/SGOT 10 U/L 7-37 U/L [facility]: [address] [facility] Normal ALT/SGPT 18 U/L 12-78 U/L [facility]: [address] [facility] Normal Alkaline Phosphatase 95 U/L 45-117 U /L [facility]: [address] [facility] Normal Bilirubin,total 0.3 mg/dL 0.2-1.0 mg /dL [facility]: [address] [facility] Normal Total Protein 7.2 gm/dL 6.4-8.2 gm/d L [facility]: [address] [facility] Normal Albumin 3.8 gm/dL 3.2-5.2 gm/dL [place] [facility]: [address] [facility] Low Albumin/globulin Ratio 1.1 1.2-2. 2 [facility]: [address] [facility] 08/10/2020 Lipid Panel, Blood High Triglycerides Lev el 212 mg/dL <150 mg/dL [facility]: [address] [facility] High Cholesterol Level 216 mg/dL <200 mg/ dL [facility]: [address] [facility] Normal HDL Cholesterol 51 mg/dL >40 mg/dL F inal [facility]: [address] [facility] High LDL Cholesterol 123 mg/dL <100 mg/dL [facility]: [address] [facility] Normal Non-hdl-c 165 mg/dL [facility]: [address] [facility] Normal Cholesterol Risk Ratio 4.235 <5 [facility]: [address] [facility] 08/10/2020 C Reactive Protein, QN, Serum or Plasma High C Reactive Protein Quantitativ 0.68 mg/dL 0.00-0.30 mg/dL [facility]: [address] [facility] 08/10/2020 CBC W/ Auto Diff Normal White Blood Count 6.2 10 4.0-10.0 10 [facility]: [address] [facility] Normal Red Blood Count 5.03 10 4.00-5.40 10 [facility]: [address] [facility] Normal Hemoglobin 14.6 g/dL 12.0-15.5 g/dL [facility]: [address] [facility] Normal Hematocrit 44.1 % 36.0-47.0 % [facility]: 0 [facility] Normal Mean Corpuscular Volume 87.7 fL 80.0 -96.0 fL [facility]: [address] [facility] Normal Mean Corpuscular Hemoglobin 29.0 pg 27.0-33.0 pg [facility]: [address] [facility] Normal Mean Corpuscular HGB Conc 33.1 g/dL 32.0-36.5 g/dL [facility]: [address] [facility] Normal Red Cell Distribution Width 12.1 % 1 1.5-14.5 % [facility]: [address] [facility] Normal Platelet Count, Automated 264 10 150 -450 10 [facility]: [address] [facility] Normal Neutrophils % 51.6 % 36.0-66.0 % [facility]: [address] [facility] Normal Lymph % 31.5 % 24.0-44.0 % [facility]: [address] [facility] High Stanton % 8.3 % 0.0-8.0 % Final [facility]: [address] [place] [address] High Eos % 7.4 % 0.0-3.0 % [facility]: [address] [facility] Normal Baso % 1.0 % 0.0-1.0 % [facility]: [address] [facility] Normal Immature Granulocyte % 0.2 % 0-3.0 % [facility]: [address] [facility] Normal Nucleated Red Blood Cell % 0.0 % 0- 0 % [facility]: [address] [facility] Normal Neutrophils # 3.2 10 1.5-8.5 10 [facility]: [address] [facility] Normal Lymph # 2.0 10 1.5-5.0 10 [facility]: [address] [facility] Normal Stanton # 0.5 10 0.0-0.8 10 [facility]: [address] [facility] Normal Eos # 0.5 10 0.0-0.5 10 [facility]: [address] [facility] Normal Baso # 0.1 10 0.0-0.2 10 [facility]: [address] [facility] 08/10/2020 ESR (Erythrocyte Sedimentation Rate), Blood Nor mal Erythrocyte Sedimentation Rate 9 mm/HR 0-20 mm/HR Final [facility]: [address] [facility] 08/10/2020 Lyme Disease Igg+igm Ab, Serum Normal Lyme Disease IgG/IgM Antibodie <0.91 isr 0.00-0.90 isr Final [facility]: [address] [place] [address] Normal Lyme Disease IgM Ab Quantitati <0.80 index 0.00-0.79 index Final [facility]: [address] [facility] 05/05/2020 SARS CoV 2 RNA (COVID-19), QL, radiologic technologist chief-PCR, Respiratory Specimen Nasopharyngeal Normal Sars Cov 2 RNA not detected not detected Fi nal Past Encounters 03/12/2021 Attention Deficit Hyperactivity Disorder Chidi Trent MD: [address] [place] [phone], Ph. 01/29/2021 Swelling of First Metatarsal Joint of Hallux of Right Foot Armand Sinclair, RPA-C: [address] [facility] [address], Ph. 12/03/2020 Multiple Joint Pain; Attention Deficit Hyperactivity Disorder; Body Mass Index 30+ - Obesity Chidi Trent MD: [address] [place] [phone], Ph. 08/10/2020 Chidi Trent MD: [address] [place] [phone], Ph. 07/27/2020 Attention Deficit Hyperactivity Disorder; Multiple Joint Pain; Adult Health Examination Chidi Trent MD: [address] [place] [phone], Ph. 05/05/2020 Exposure to SARS-CoV-2 Chidi Trent MD: [address] [place] [phone], Ph. Social History Tobacco Smoking Status Never Smoker Vaccine List Vaccine Type COVID-19, mRNA, LNP-S, PF, 100 mcg/0.5 m L dose 11/11/2020 12/09/2020 influenza, injectable, quadrivalent 03/04/2020 influenza, injectable, quadrivalent, pre servative free 03/13/20200.5 mL varicella 03/13/20200.5 mL Plan of Care Reminders Provider Appointments None recorded. Lab None recorded. Referral None recorded. Procedures None recorded. Surgeries None recorded. Imaging None recorded. Vitals 03/12/2021 02:40PM ESTABLISHED [id number] Height Weight BMI Blood Pressure 62 in 188 lbs 4 oz 34.4 kg/m2 110/76 mm[Hg] 01/29/2021 03:10PM SAME DAY 20 Height Weight BMI Blood Pressure 62 in 189 lbs 34.6 kg/m2 120/81 mm[Hg] 12/03/2020 02:00PM ANNUAL EXAM Height Weight BMI Blood Pressure 62 in 184 lbs 33.7 kg/m2 117/79 mm[Hg] 07/27/2020 11:40AM ESTABLISHED [id number] Height Weight BMI Blood Pressure 62 in 184 lbs 3 oz 33.7 kg/m2 128/83 mm[Hg] 03/13/2020 Height Weight BMI Blood Pressure 62 in 181 lbs 33.22 kg/m2 127/85 mm[Hg] 12/13/2019 Height Weight BMI Blood Pressure 62 in 186 lbs 34.14 kg/m2 139/88 mm[Hg]"
--- OUTSIDE RECORDS SUMMARY | 2021-06-02 07:50 | CCD | Continuity of Care Document ---
Author Author Randi PUGH Organization Unknown Address [address] [place] [phone] Phone [phone] Care Team Providers Care Permaculture Designer Name Role Phone Chidi Trent MD AUT [phone] Problems Description No Information Available Social History Type Date Description Comments Sex Unknown Allergies, Adverse Reactions, Alerts Description No Information Available Medications Description No Information Available Immunizations Description No Information Available Vital Signs Date Vital Result Comment 03/18/2021 10:16am Body Temperature 97.1 F Height 62.5 inches 5'2.50" Weight 185.38 lb BMI (Body Mass Index) 33.4 kg/m2 Results Description No Information Available Procedures Date Code Description Status 03/18/2021 77448 Office/Outpatient New Moderate M DM 45-59 Minutes Completed 03/18/2021 98230 X-Ray Knee Complete W/Obliques & Tunnel And/Or Standing Views Completed 03/18/2021 08273 Inject/Drain Joint/Bursa Major C ompleted Medical Devices Description No Information Available Encounters Type Date Location Provider Dx Diagnosis Office Visit 03/18/2021 10:[place]a [place] PA-C M1 7.11 Unilateral primary osteoarthritis, right knee M71.21 Synovial cyst of popliteal s pace [[place]es], right knee Assessments Date Code Description Provider 03/18/2021 M17.11 Unilateral primary osteoarthriti s, right knee Sis Pugh PA-C 03/18/2021 M71.21 Synovial cyst of popliteal space [[place]orges], right knee Sis Pugh PA-C Plan of Treatment Future Appointment(s):* 04/15/2021 3:00 pm - Sis Pugh PA-C at [place] 03/18/2021 - Sis Pugh PA-C* M17.11 Unilateral primary osteoarthritis, right knee* Follow up:* 4 weeks for rt knee recheck with BMS * M71.21 Synovial cyst of popliteal space [Borges], right knee Functional Status Description No Information Available Mental Status Description No Information Available Referrals Description No Information Available
--- OUTSIDE RECORDS SUMMARY | 2021-06-02 07:50 | CCD | Continuity of Care Document ---
Author Author Randi BASURTO P.A.-C. Organization Unknown Address [address] [place] [address] Phone [phone] Care Team Providers Care Road Crew Member Name Role Phone Esther Ku M.D. AUTM Chidi Trent M.D. AUTM [phone] Problems Active Problems Provider Date Headache Christine Kim M.D. Onset: 06/09/2015 Neck pain Christine Kim M.D. Onset: 06/09/2015 Dizziness Christine Kim M.D. Onset: 06/09/2015 Insomnia Christine iKm M.D. Onset: 06/09/2015 Social History Type Date Description Comments Sex Unknown Tobacco Use Start: Unknown End: Unknown Patient is a former smoker Allergies, Adverse Reactions, Alerts Active Allergies Criticality Reaction | Severity Comments Date Topamax Unable to assess criticality depression 08/22/2011 Motrin Unable to assess criticality GI upset 08/22/2011 Norethindrone Unable to assess criticality 06/09/2015 Nortriptyline Unable to assess criticality increase in headaches, fatigue 04/07/2016 Protopic Unable to assess criticality severe irrit ation 08/15/2016 Hydroxyzine Unable to assess criticality daytime fati larry 05/02/2017 Neurontin Unable to assess criticality made headach es more severe 08/22/2017 Tizanidine Unable to assess criticality severe fatig ue almost incontinent 03/12/2018 Percocet Unable to assess criticality severe nause a 03/12/2018 Valium Unable to assess criticality caused loss of control of urination 05/24/2018 Inactive Allergies No Known Drug Allergy Unable to assess criticality 05/24/2011 Medications Active Medications SIG Qnty Indications Ordering Provide r Date Aimovig 70mg/ml Solution Auto-Inje ct inject 70mg subcutaneously once monthly 1ml G43.009 Christine brown M.D. 03/15/2021 Magnesium Oxide 400(241.3Mg) mg Ta blets 1 by mouth twice a day 60tabs Christine Kim M.D. 11/16/19 16 Immunizations Description No Information Available Vital Signs Date Vital Result Comment 12/08/2020 5:30am BP Systolic 130 mmHg BP Diastolic 80 mmHg Heart Rate 78 /min Respiratory Rate 16 /min 12/12/2018 10:40am BP Systolic 110 mmHg BP Diastolic 70 mmHg Heart Rate 76 /min Respiratory Rate 16 /min Results Description No Information Available Procedures Date Code Description Status 03/15/2021 62757 Office/Outpatient Established Mo d MDM 30-39 Min Completed 12/08/2020 48527 Office/Outpatient Established Mo d MDM 30-39 Min Completed 09/13/2020 97377 MRI Spine Cervical W/O Contrast Completed 09/13/2020 10430 MRI Spine Cervical W/O Contrast Completed Medical Devices Description No Information Available Encounters Type Date Location Provider Dx Diagnosis Office Visit 03/15/2021 2:30p Main office - [place] [facility] [place].A.-CJoseluis G43.009 Migraine w/o aura, not intractable, w/o status migrainosus M54.2 Cervicalgia M54.5 Low back pain M79.7 Fibromyalgia M62.838 Other muscle spasm Office Visit 12/08/2020 2:00p Main office - [place].A.-CJoseluis M54.2 Cervicalgia M47.892 Other spondylosis, cervical region M79.7 Fibromyalgia M54.5 Low back pain M62.838 Other muscle spasm G43.009 Migraine w/o aura, not intra ctable, w/o status migrainosus M25.50 Pain in unspecified joint Assessments Date Code Description Provider 03/15/2021 G43.009 Migraine without aura, not intra ctable, without status migra Robin Ramirez-CJoseluis 03/15/2021 M54.2 Cervicalgia Nick RamirezA.-CJoseluis 03/15/2021 M54.5 Low back pain Lise SusiJoseluis Basurto, P.A.-C. 03/15/2021 M79.7 Fibromyalgia Lise SusiJoseluis Basurto, P.A.-C. 03/15/2021 M62.838 Other muscle spasm Lise munoz, P.A.-C. 12/08/2020 M54.2 Cervicalgia Lise Basurto, P.A.-C. 12/08/2020 M47.892 Other spondylosis, cervical spike on Lise Basurto, P.A.-C. 12/08/2020 M79.7 Fibromyalgia Lise Basurto, P.A.-C. 12/08/2020 M54.5 Low back pain Lise SusiJoseluis Basurto, P.A.-C. 12/08/2020 M62.838 Other muscle spasm Lise munoz, P.A.-C. 12/08/2020 G43.009 Migraine without aura, not intra ctable, without status migra Lise Basurto, P.A.-C. 12/08/2020 M25.50 Pain in unspecified joint Lise Basurto P.A.-C. 09/13/2020 M54.2 Cervicalgia Salvador Julio, M.D . 09/13/2020 M54.2 Cervicalgia MRI 09/13/2020 M47.892 Other spondylosis, cervical spike on Salvador Julio, M.D. 09/13/2020 M47.892 Other spondylosis, cervical spike on MRI Plan of Treatment 03/15/2021 - Lise Basurto, P.A.-C.* G43.009 Migraine without aura, not intractable, without status migra* New Medication:* Aimovig 70 mg/ml - inject 70mg subcutaneously once monthly * M54.2 Cervicalgia * M54.5 Low back pain * M79.7 Fibromyalgia * M62.838 Other muscle spasm Functional Status Description No Information Available Mental Status Description No Information Available Referrals Refer to Dr Reason for Referral Status Appt Date Archie Abraham M.D. NECK PAIN Created [facility] [address] [facility] [address] [place] [address] [phone] Salvador Kim M.D. Created [facility] [address] [place] [address] [phone]"
--- OUTSIDE RECORDS SUMMARY | 2021-06-02 07:50 | CCD | Continuity of Care Document ---
Author Author Randi BASURTO P.A.-C. Organization Unknown Address [address] [place] [address] Phone [phone] Care Team Providers Care Auger Supervisor Name Role Phone Esther Ku M.D. AUTM [phone] Chidi Trent M.D. AUTM [phone] Problems Active Problems Provider Date Headache Christine Kim M.D. Onset: 06/09/2015 Neck pain Christine Kim M.D. Onset: 06/09/2015 Dizziness Christine Kim M.D. Onset: 06/09/2015 Insomnia Christine Kim M.D. Onset: 06/09/2015 Social History Type Date [...] Available Vital Signs Date Vital Result Comment 03/15/2021 5:35am BP Systolic 120 mmHg BP Diastolic 70 mmHg Heart Rate 76 /min Respiratory Rate 16 /min 12/08/2020 5:30am BP Systolic 130 mmHg BP Diastolic 80 mmHg Heart Rate 78 /min Respiratory Rate 16 /min Results Description No Information Available Procedures Date Code Description Status 03/15/2021 86693 Office/Outpatient Established Mo d MDM 30-39 Min Completed 12/08/2020 65825 Office/Outpatient Established Mo d MDM 30-39 Min Completed Medical Devices Description No Information Available Encounters Type Date Location Provider Dx Diagnosis Office Visit 03/15/2021 2:30p Main office - [place] Lise nascimento P.A.-C. G43.709 Chronic migraine w/o aura, not intractab le, w/o stat migr G44.229 Chronic tension-type headach e, not intractable M54.2 Cervicalgia M54.5 Low back pain M79.7 Fibromyalgia M62.838 Other muscle spasm Office Visit 12/08/2020 2:00p Main office - [place] Scott Espana.A.-C. M54.2 Cervicalgia M47.892 Other spondylosis, cervical region M79.7 Fibromyalgia M54.5 Low back pain M62.838 Other muscle spasm G43.009 Migraine w/o aura, not intra ctable, w/o status migrainosus M25.50 Pain in unspecified joint Assessments Date Code Description Provider 03/15/2021 G43.709 Chronic migraine wit hout aura, not intractable, without status migrainosus Scott Ramirez.A.-CJoseluis 03/15/2021 G44.229 Chronic tension-type headache, n ot intractable Scott Ramirez.A.-C. 03/15/2021 M54.2 Cervicalgia Lise Basurto, P.A.-C. 03/15/2021 M54.5 Low back pain Lise Basurto, P.A.-C. 03/15/2021 M79.7 Fibromyalgia Lise Basurto, P.A.-C. 03/15/2021 M62.838 Other muscle spasm Lise munoz, P.A.-C. 12/08/2020 M54.2 Cervicalgia Lise Basurto, P.A.-C. 12/08/2020 M47.892 Other spondylosis, cervical spike on Lise Basurto, P.A.-C. 12/08/2020 M79.7 Fibromyalgia Lise Basurto, P.A.-C. 12/08/2020 M54.5 Low back pain Lise Basurto, P.A.-C. 12/08/2020 M62.838 Other muscle spasm Lise munoz, P.A.-C. 12/08/2020 G43.009 Migraine without aura, not intra ctable, without status migra Lies Basurto, P.A.-C. 12/08/2020 M25.50 Pain in unspecified joint Nick PazA.-CJoseluis Plan of Treatment Future Appointment(s):* 06/15/2021 2:45 pm - Lise Basurto P.A.-C. at Main office [facility] 03/15/2021 - Norm Ramirez.-C.* G43.709 Chronic migraine without aura, not intractable, without status migrainosus* Comments:* She has taken amitriptyline, nortriptyline, Cymbalta, Depakote, zonisamide, Topamax, Imitrex and naproxen with no relief or adverse effects. Propranolol or verapamil not prescribed due to history of orthostatic hypotension. Add Aimovig 70 mg as directed. * G44.229 Chronic tension-type headache, not intractable* Comments:* Continue magnesium and B2. * M54.2 Cervicalgia* Comments:* Follow up at [facility]. * M54.5 Low back pain* Comments:* Stable. * M79.7 Fibromyalgia* Comments:* Follow up with rheumatology. * M62.838 Other muscle spasm* Comments:* She takes cyclobenzaprine as needed. * Follow up:* 3 months Functional Status Description No Information Available Mental Status Description No Information Available Referrals Refer to Reason for Referral Status Appt Date Archie Abraham M.D. NECK PAIN Created [facility] [id number] [place] [address] [phone] Salvador Kim M.D. Created [facility] [address] [place] [address] [phone]"
--- OUTSIDE RECORDS SUMMARY | 2021-06-02 07:50 | CCD ---
Author Organization Unknown Address [address] [place] [address] Phone [phone] Care Team Providers Care Can Capper Name Role Phone MARIA ELENA REAGAN 4 [phone] SARAH CARPENTER MD 3 [phone] Allergies Code Code System Name Reaction Severity Status Onset Adhesive Tape Active 2016 Notes: NORITHINDRONE (Active): Reaction: depression;Severity: Critical;OnsetDate: 08/02/2016; Comment: Entered By: Batsheva Mullen LPN|Signed By: Archie Abraham MD|Uncoded: Y; Some allergies listed in Documents: #[id number], #[id number] could not be added to this patient's chart. Please review these documents and add these allergies to the patient's chart manually as needed. Medications Name Status Start Date Stop Date celecoxib 200 mg capsule Active Not sofia ilable cyclobenzaprine 10 mg tablet TAKE 1 TABLET BY MOUTH ONCE DAILY Completed 04/07 dextroamphetamine-amphetamine ER 25 mg 24hr capsule,extend relea se Active Not available ergocalciferol (vitamin D2) 1,250 mcg (50,000 unit) capsule Acti ve Not available latanoprost 0.005 % eye drops Active No t available Lyrica 50 mg capsule Take 1 capsule every day by oral route at bedtime. Active Not available methylprednisolone 4 mg tablets in a dos e pack USE DIRECTED Completed 04/07/2021 potas and sod citrate-citric acid 550 mg-500 mg-334 mg/5 mL oral soln Active Not available potassium citrate Active Not available potassium citrate ER 10 mEq (1,080 mg) tablet,extended release A ctive Not available prednisone 20 mg tablet TAKE 1 TABLET BY MOUTH TWICE DAILY FOR 5 DAYS Completed 12/29/2020 sodium citrate-citric acid 500 mg-334 mg/5 mL oral solution Acti ve Not available tizanidine 4 mg tablet Take 1 tablet as needed by oral route at bedtime. Active Not available Voltaren Arthritis Pain 1 % topical gel APPLY 2 GRAMS TO THE AFFECTED AREA(S) BY TOPICAL ROUTE 4 TIMES PER DAY Active Not available Notes: Some medications listed in Docume nts: #[id number], #[id number] could not be added to this patient's chart. Please review these documents and add these medications to the patient's chart manually as needed. Problems Name Status Onset Date Source Spondylosis without Myelopathy Active 08/02/2016 Displacement of Cervical Intervertebral Disc Active 12/2016 Degeneration of Cervical Intervertebral Disc Active 12/2016 Cervical Radiculopathy Active 08/02/2016 Cervico-occipital Neuralgia Active 09/26/2016 Muscle Pain Active 09/26/2016 Procedures Date Name Performed by Neck Spine Fusion Notes: c4-5 c5-6 c6-7 are all fused in 2018 and 2018 Information not available Notes: tuballigation 2002, breast reduct ion , periurethral cyst 2002, cholecystectomy 2003, carpal tunnel , tummy tuck 2008, tonsillectomy 2009, partial hysterectomy 2010, labiaplasty 200708/02/2016 Results Lab Results Date Name Specimen Result Interpretation Description Value Range Status Address 02/15/2021 [facility] Pdf Report NOS No observation recorded. [facility]: [address] [facility], [place] 02/15/2021 SARS CoV 2 RNA (COVID-19), QL, operating table assembler-PCR, Respirat ory Specimen NOS Normal Sars-cov-2 negative negative Final [facility]: [address] [facility] [place] Past Encounters 04/07/2021 Cervical Radiculopathy; Displacement of Cervical Intervertebral Disc without Myelopathy; Degeneration of Cervical Intervertebral Disc; Cervical Spondylosis without Myelopathy; Cervical Post-laminectomy Syndrome; Myofascial Pain Cinthia Montes, DECATOR OPERATOR: [address], [place] [address], Ph. 02/23/2021 Cervical Radiculopathy; Displacement of Cervical Intervertebral Disc without Myelopathy; Degeneration of Cervical Intervertebral Disc; Cervical Spondylosis without Myelopathy; Cervical Post-laminectomy Syndrome; Myofascial Pain Cinthia Montes, DECATOR OPERATOR: [address], [place] [address], Ph. 02/19/2021 Cervical Spondylosis without Myelopathy; Degeneration of Cervical Intervertebral Disc; Displacement of Cervical Intervertebral Disc without Myelopathy; Cervical Post-laminectomy Syndrome; Cervical Radiculopathy; Myofascial Pain Archie Abarham MD: [id number] [address], [place] [address], Ph. 02/15/2021 Pre-surgery Testing; Viral Screening Archie Abraham MD: [id number] [address], Ph. [phone] 02/04/2021 Cervical Radiculopathy; Displacement of Cervical Intervertebral Disc without Myelopathy; Degeneration of Cervical Intervertebral Disc; Cervical Spondylosis without Myelopathy; Cervical Post-laminectomy Syndrome; Myofascial Pain Cinthia Montes, DECATOR OPERATOR: [id number] [address], Ph. 01/12/2021 Myofascial Pain; Cervical Radiculopathy; Displacement of Cervical Intervertebral Disc without Myelopathy; Degeneration of Cervical Intervertebral Disc; Cervical Spondylosis without Myelopathy; Cervical Post-laminectomy Syndrome Archie Abraham MD: [id number] [address], Ph. 12/29/2020 Cervical Radiculopathy; Displacement of Cervical Intervertebral Disc without Myelopathy; Degeneration of Cervical Intervertebral Disc; Cervical Spondylosis without Myelopathy; Cervical Post-laminectomy Syndrome; Myofascial Pain Cinthia Montes, DECATOR OPERATOR: [id number] [address], Ph. Social History None recorded. Vaccine List Notes: Pt is not covid19 immunized at th is time Plan of Care Reminders Provider Appointments None recorded. Lab None recorded. Referral None recorded. Procedures None recorded. Surgeries None recorded. Imaging None recorded. Vitals 04/07/2021 02:15PM FOLLOW-UP Height Blood Pressure 5 ft 2 in 108/78 mm[Hg] 02/23/2021 02:45PM FOLLOW-UP Height Weight BMI Blood Pressure 5 ft 2 in 185 lbs 33.8 kg/m2 119/81 mm[Hg] 02/04/2021 03:15PM FOLLOW-UP Height Blood Pressure 5 ft 2 in 132/84 mm[Hg] 12/29/2020 02:45PM Extended Follow Up Visit Height Weight BMI Blood Pressure 5 ft 2 in 185 lbs 33.8 kg/m2 128/74 mm[Hg] 11/23/2016 Blood Pressure 118/83 mm[Hg] 11/07/2016 Blood Pressure 113/72 mm[Hg] 10/18/2016 Blood Pressure 125/89 mm[Hg] 10/03/2016 Blood Pressure 100/69 mm[Hg] 09/26/2016 Blood Pressure 112/76 mm[Hg] 09/12/2016 Blood Pressure 109/78 mm[Hg] 08/29/2016 Blood Pressure 110/77 mm[Hg] 08/02/2016 Height Weight BMI Blood Pressure 5 ft 2 in 145 lbs 26.62 kg/m2 125/91 mm[Hg]"
--- OUTSIDE RECORDS SUMMARY | 2021-06-02 07:50 | CCD | Continuity of Care Document ---
Author Author Randi PUGH Organization Unknown Address [address] [place] [address] Phone [phone] Care Team Providers Care Employment Officer Name Role Phone Chidi Trent MD AUT [phone] Problems Description No Information Available Social History [...] Available Procedures Date Code Description Status 03/18/2021 01579 Office/Outpatient New Moderate M DM 45-59 Minutes Completed 03/18/2021 67061 X-Ray Knee Complete W/Obliques & Tunnel And/Or Standing Views Completed 03/18/2021 98013 Inject/Drain Joint/Bursa Major C ompleted Medical Devices Description No Information Available Encounters Type Date Location Provider Dx Diagnosis Office Visit 03/18/2021 10[place]a [place] PA-C M1 7.11 Unilateral primary osteoarthritis, right knee M71.21 Synovial cyst of popliteal s pace [Borges], right knee Assessments Date Code Description Provider 03/18/2021 M17.11 Unilateral primary osteoarthriti s, right knee Sis Pugh PA-C 03/18/2021 M71.21 Synovial cyst of popliteal space [Borges], right knee Sis Pugh PA-C Plan of Treatment Future Appointment(s):* 04/15/2021 3:00 pm - Sis Pugh PA-C at [place] 03/18/2021 - Sis Pugh PA-C* M17.11 Unilateral primary osteoarthritis, right knee* Follow up:* 4 weeks for rt knee recheck with BMS * M71.21 Synovial cyst of popliteal space [Borges], right knee Functional Status Description No Information Available Mental Status Description No Information Available Referrals Description No Information Available
--- OUTSIDE RECORDS SUMMARY | 2021-06-02 07:50 | CCD ---
Author Organization Unknown Address [address] [place] [address] Phone [phone] Care Team Providers Care Strip Cleaner Name Role Phone MARIA ELENA REAGAN 4 [phone] SARAH CARPENTER MD 3 [phone] Allergies Code Code System Name Reaction Severity Status Onset Adhesive Tape Active 08/02/2016 Notes: NORITHINDRONE (Active): Reaction: depression;Severity: Critical;OnsetDate: 08/02/2016; Comment: Entered By: Batsheva Mullen LPN|Signed By: Archie Abraham MD|Uncoded: Y; Some allergies listed in Documents: #[id number], #[id number] could not be added to this patient's chart. Please review these documents and add these allergies to the patient's chart manually as needed. Medications Name Status Start Date Stop Date Aimovig Autoinjector 70 mg/mL subcutaneous auto-injector Active Not available celecoxib 200 mg capsule Active Not sofia ilable cyclobenzaprine 10 mg tablet TAKE 1 TABLET BY MOUTH ONCE DAILY Completed 04/07 dextroamphetamine-amphetamine ER 25 mg 24hr capsule,extend relea se Active Not available ergocalciferol (vitamin D2) 1,250 mcg (50,000 unit) capsule Acti ve Not available latanoprost 0.005 % eye drops Completed methylprednisolone 4 mg tablets in a dos e pack USE DIRECTED Completed 04/07/2021 potas and sod citrate-citric acid 550 mg-500 mg-334 mg/5 mL oral soln Active Not available potassium citrate Active Not available potassium citrate ER 10 mEq (1,080 mg) tablet,extended release A ctive Not available prednisone 20 mg tablet TAKE 1 TABLET BY MOUTH TWICE DAILY FOR 5 DAYS Completed 12/29/2020 pregabalin 50 mg capsule Completed sodium citrate-citric acid 500 mg-334 mg/5 mL oral solution Comp leted 05/24/2021 tizanidine 4 mg tablet Active Not avail able Voltaren Arthritis Pain 1 % topical gel APPLY 2 GRAMS TO THE AFFECTED AREA(S) BY TOPICAL ROUTE 4 TIMES PER DAY Active Not available Notes: Some medications listed in Docume nts: #[id number], #[id number] could not be added to this patient's [...] Active 09/26/2016 Procedures Date Name Performed by Kellee Delong Julia/xoral C1-C2 Notes: c4-5 c5-6 c6-7 are all fused in 2018 and 2018 Information not available Notes: tuballigation 2002, breast reduct ion , periurethral cyst 2002, cholecystectomy 2003, carpal tunnel , tummy tuck 2008, tonsillectomy 2009, partial hysterectomy 2010, labiaplasty 200708/02/2016 Results Lab Results Date Name Specimen Result Interpretation Description Value Range Status Address 02/15/2021 [facility] Pdf Report NOS No observation recorded. [facility]: [address] [facility], [place] 02/15/2021 SARS CoV 2 RNA (COVID-19), QL, assurance auditor-PCR, Respirat ory Specimen NOS Normal Sars-cov-2 negative negative Final [facility]: [address] [facility] [place] Past Encounters 05/24/2021 Cervical Radiculopathy; Displacement of Cervical Intervertebral Disc without Myelopathy; Degeneration of Cervical Intervertebral Disc; Cervical Spondylosis without Myelopathy; Cervical Post-laminectomy Syndrome; Myofascial Pain Cinthia Montes COMMUNICATIONS INSTRUCTOR: [address], [place] [address], Ph. 04/07/2021 Cervical Radiculopathy; Displacement of Cervical Intervertebral Disc without Myelopathy; Degeneration of Cervical Intervertebral Disc; Cervical Spondylosis without Myelopathy; Cervical Post-laminectomy Syndrome; Myofascial Pain Cinthia Montes COMMUNICATIONS INSTRUCTOR: [address], [place] [address], Ph. 02/23/2021 Cervical Radiculopathy; Displacement of Cervical Intervertebral Disc without Myelopathy; Degeneration of Cervical Intervertebral Disc; Cervical Spondylosis without Myelopathy; Cervical Post-laminectomy Syndrome; Myofascial Pain Cinthia Marcelino Huizarshelley, COMMUNICATIONS INSTRUCTOR: [address] [address], [facility] [place] [place] [address], Ph. 02/19/2021 Cervical Spondylosis without Myelopathy; Degeneration of Cervical Intervertebral Disc; Displacement of Cervical Intervertebral Disc without Myelopathy; Cervical Post-laminectomy Syndrome; Cervical Radiculopathy; Myofascial Pain Archie Abraham MD: [id number] [address], [place] [address], Ph. 02/15/2021 Pre-surgery Testing; Viral Screening Archie Abraham MD: [id number] [address], [place] [address], Ph. [phone] 02/04/2021 Cervical Radiculopathy; Displacement of Cervical Intervertebral Disc without Myelopathy; Degeneration of Cervical Intervertebral Disc; Cervical Spondylosis without Myelopathy; Cervical Post-laminectomy Syndrome; Myofascial Pain Cinthia Montes, COMMUNICATIONS INSTRUCTOR: [address] [address], [facility] [place] [place] [address], Ph. 01/12/2021 Myofascial Pain; Cervical Radiculopathy; Displacement of Cervical Intervertebral Disc without Myelopathy; Degeneration of Cervical Intervertebral Disc; Cervical Spondylosis without Myelopathy; Cervical Post-laminectomy Syndrome Archie Abraham MD: [id number] [address], [place] [address], Ph. 12/29/2020 Cervical Radiculopathy; Displacement of Cervical Intervertebral Disc without Myelopathy; Degeneration of Cervical Intervertebral Disc; Cervical Spondylosis without Myelopathy; Cervical Post-laminectomy Syndrome; Myofascial Pain Cinthia Weissjosyjosephinemarah Simon, COMMUNICATIONS INSTRUCTOR: [address] [address], [facility] [place] [address], Ph. Social History None recorded. Vaccine List Notes: Pt is not covid19 immunized at th is time Plan of Care Reminders Provider Appointments None recorded. Lab None recorded. Referral None recorded. Procedures None recorded. Surgeries None recorded. Imaging None recorded. Vitals 05/24/2021 02:45PM FOLLOW-UP Height Blood Pressure 5 ft 2 in 121/80 mm[Hg] 04/07/2021 02:15PM FOLLOW-UP Height Blood Pressure 5 [...]
--- OUTSIDE RECORDS SUMMARY | 2021-06-02 07:50 | CCD | Continuity of Care Document ---
Author Author Randi BAUTISTA DP Organization Unknown Address [address] [place] [address], [address] [place] [address] Phone [phone] Care Team Providers Care Employment Officer Name Role Phone RADHAMES Sinclair AUTM [phone] MD Chidi Trent AUTM [phone] Problems Description No Information Available Social History Type Date Description Comments Sex Unknown ETOH Use Denies alcohol use Tobacco Use Start: Unknown End: Unknown Patient is a former smoker smoked 1/2ppd for 15 years quit 2009 Allergies and adverse reactions Active Allergies Criticality Reaction | Severity Comments Date NKDA Unable to assess criticality 03/25/2021 Tape Unable to assess criticality rash burnin g 03/29/2021 Medications Active Medications SIG Qnty Indications Ordering Provide r Date Amphetamine-Dextroamphet ER 25mg Caps ER 24HR Take 1 Capsule By Mouth Twice Daily MD Chidi Trent Methylprednisolone 4mg TBPK Unknown Tizanidine HCL 4mg Tablets Unknown Potassium Citrate ER 10Meq (1080 mg) Tablets ER Nadja Schultz MD Celecoxib 200mg Capsules Unknown Vitamin D (Ergocalciferol) 1.25mg (77840 Ut) Capsules Unknown Latanoprost 0.005% Solution Unknown Prednisone 20mg Tablets Gloria Villatoro Immunizations Description No Information Available Vital Signs Date Vital Result Comment 03/29/2021 9:39am Height 62 inches 5'2" Weight 189.00 lb BP Systolic 120 mmHg BP Diastolic 81 mmHg Heart Rate 87 /min BMI (Body Mass Index) 34.6 kg/m2 Results Description No Information Available Procedures Description No Information Available Medical Devices Description No Information Available Encounters Description No Information Available Assessments Description No Information Available Plan of Treatment Future Appointment(s):* 04/26/2021 2:15 pm - Xavi Bautista DPM at [facility] Functional Status Description No Information Available Mental Status Description No Information Available Referrals Description No Information Available
--- OUTSIDE RECORDS SUMMARY | 2021-06-02 07:50 | CCD ---
Author Organization Unknown Address [address] [place] [id number] Phone [phone] Care Team Providers Care Oil Recovery Operator Name Role Phone Armand Sinclair Carlos Unavailable Unavailable Allergies Notes: NORTHINDRONE BC - Reaction: depr ession | TAPE ADHESIVES - Reaction: rash Medications Name Status Start Date Stop Date Aimovig Autoinjector 70 mg/mL subcutaneous auto-injector Active Not available celecoxib 200 mg capsule Active Not sofia ilable cephalexin 500 mg capsule Completed 2020 cyclobenzaprine 10 mg tablet as needed Active Not available dextroamphetamine-amphetamine ER 25 mg 24hr capsule,extend relea se Active Not available diclofenac 1 % topical gel APPLY 4 GRAMS TO AFFECTED AREA 4 TIMES DAILY NEEDED Active Not available ergocalciferol (vitamin D2) 1,250 mcg (50,000 unit) capsule Acti ve Not available fluconazole 150 mg tablet Completed 2020 fluticasone propionate 50 mcg/actuation nasal spray,suspension C ompleted 07/27/2020 Fluzone Quad (PF) 60 mcg (15 mcg x 4)/0.5 mL IM syring e Completed 12/03/2020 latanoprost 0.005 % eye drops Completed methylprednisolone [...] TWICE DAILY FOR 5 DAYS Completed 07/27/2020 pregabalin 50 mg capsule Completed 021 sodium citrate-citric acid 500 mg-334 mg/5 mL oral solution Comp leted 07/27/2020 tizanidine 4 mg tablet Active Not avail able Problems Name Status Onset Date Source Attention Deficit Hyperactivity Disorder Active 020 History Influenza Vaccine Needed Active 03/13/2020 History Multiple Joint Pain Active 07/27/2020 Body Mass Index 30+ - Obesity Active 12/03/2020 Bunion Active 05/31/2021 Procedures Date Name Performed by 01/29/2021 XR, Foot [facility] [address], [place] [id number] (Work Place) Notes: tubal ligation 2002, gallbladder 2004, perirurthral cyst, carpal tunnel both hand, breast reduction/ reconstruction, partial hysterectomy 2011, ganglion cyst right wrist, cervical fusion 2017,2019 neck, Tonsillectomy 2009 Results Lab Results Date Name Specimen Result Interpretation Description Value Range Status Address 05/28/2021 SARS CoV 2 RNA, QL, Nasopharynx NASOPHARYNX Coronavirus 2019 Nasopharygeal Final [facility]: [address] [place] [address] 03/19/2021 Vitamin D, 25-Hydroxy, Total, Serum Low Total 25(Oh) Vitamin D 23.5 NG/mL 30.0-100.0 NG/mL [facility] nter: [address] [facility] 12/13/2020 CBC W/ Auto Diff Normal White Blood Count 5.9 10 4.0-10.0 10 [facility]: [address] [place] [address] Normal Red Blood Count 4.94 10 4.00-5.40 10 [facility]: [address] [place] [address] Normal Hemoglobin 14.2 g/dL 12.0-15.5 g/dL [facility]: [address] [place] [address] Normal Hematocrit 43.7 % 36.0-47.0 % [facility]: [address] [place] [address] Normal Mean Corpuscular Volume 88.5 fL 80.0 -96.0 fL [facility]: 0 [facility] Normal Mean Corpuscular Hemoglobin 28.7 pg 27.0-33.0 pg [facility]: [address] [place] [address] Normal Mean Corpuscular HGB Conc 32.5 g/dL 32.0-36.5 g/dL [facility]: [address] [facility] Normal Red Cell Distribution Width 12.2 % 1 1.5-14.5 % [facility]: [address] [facility] Normal Platelet Count, Automated 261 10 150 -450 10 [facility]: [address] [facility] Normal Neutrophils % 59.5 % 36.0-66.0 % [facility]: [address] [facility] Normal Lymph % 28.3 % 24.0-44.0 % [facility]: [address] [facility] Normal Rowan % 6.7 % 2.0-8.0 % Final [facility]: [address] [facility] High Eos % 4.5 % 0.0-3.0 % [facility]: [address] [facility] Normal Baso % 0.7 % 0.0-1.0 % [facility]: [address] [facility] Normal Immature Granulocyte % 0.3 % 0-3.0 % [facility]: [address] [facility] Normal Nucleated Red Blood Cell % 0.0 % 0- 0 % [facility]: [address] [facility] Normal Neutrophils # 3.5 10 1.5-8.5 10 [facility]: [address] [facility] Normal Lymph # 1.7 10 1.5-5.0 10 [facility]: [address] [facility] Normal Rowan # 0.4 10 0.0-0.8 10 [facility]: [address] [facility] Normal Eos # 0.3 10 0.0-0.5 10 [facility]: [address] [facility] Normal Baso # 0.0 10 0.0-0.2 10 [facility]: [address] [facility] 12/13/2020 Drug Screen, Urine High Amphetamines Leve l Urine positive negative [facility]: [address] [facility] Normal Barbiturates Urine negative negative [facility]: [address] [facility] Normal Benzodiazepines Urine negative negat lorne [facility]: [address] [facility] Normal Cannabinoids Urine negative negative [facility]: [address] [facility] Normal Cocaine Metabolite Urine negative ne gative [facility]: [address] [facility] Normal Methadone Urine negative negative Fi nal [facility]: [address] [facility] Normal Opiates Urine negative negative [place] [facility]: [address] [facility] Normal Phencyclidine Urine negative negativ e [facility]: [address] [facility] 12/13/2020 BMP, Serum or Plasma Normal Glucose, Fastin g 86 mg/dL 70-100 mg/dL [facility]: [address] [facility] High Blood Urea Nitrogen 19 mg/dL 7-18 mg /dL [facility]: [address] [facility] Normal Creatinine for GFR 0.61 mg/dL 0.55-1 .30 mg/dL [facility]: [address] [facility] Normal Glomerular Filtration Rate > 60.0 >6 0 [facility]: [address] [facility] Normal Sodium Level 139 mEq/L 136-145 mEq/L [facility]: [address] [facility] Normal Potassium Serum 5.0 mEq/L 3.5-5.1 mE q/L [facility]: [address] [facility] Normal Chloride Level 106 mEq/L 98-107 mEq/ L [facility]: [address] [facility] Normal Carbon Dioxide Level 28 mEq/L 21-32 mEq/L [facility]: [address] [facility] Low Anion Gap 5 mEq/L 8-16 mEq/L [facility]: [address] [facility] Normal Calcium Level 8.9 mg/dL 8.5-10.1 mg/ dL [facility]: [address] [facility] 12/13/2020 Magnesium, Serum or Plasma Normal Magnesium Level 2.3 mg/dL 1.8-2.4 mg/dL [facility]: [address] [facility] 12/13/2020 Thyroid Panel, Serum Low T Uptake 29 % 30 -39 % [facility]: 0 [facility] Normal Thyroxine (T4) 9.0 ug/dL 4.5-12.0 ug /dL [facility]: 0 [facility] Normal Free Thyroxine Index 2.6 % 1.3-4.8 % [facility]: [address] [facility] Normal Thyroid Stimulating Hormone 1. 360 uIU/mL 0.358-3.740 uIU/mL [facility]: 0 [facility] 12/13/2020 Vitamin B12, Serum High Vitamin B12 Level 1271 pg/mL 247-911 pg/mL [facility]: [address] [facility] 12/13/2020 Lyme Disease Igg+igm Ab, Serum Normal Lyme Disease IgG/IgM Antibodie <0.91 isr 0.00-0.90 isr [facility]: [address] [facility] Normal Lyme Disease IgM Ab Quantitati <0.80 index 0.00-0.79 index [facility]: [address] [facility] 11/10/2020 Phosphorus Level Normal Phosphorus Level 2 .7 mg/dL 2.5-4.9 mg/dL [facility]: [address] [facility] 11/10/2020 CK (Creatine Kinase) Mb, Quantitative, Blood Hi gh CPK Creatine Phosphokinase 533 U/L 26-192 U/L [facility]: [address] [facility] 11/10/2020 Magnesium, Serum or Plasma Normal Magnesium Level 2.1 mg/dL 1.8-2.4 mg/dL [facility]: [address] [facility] 11/10/2020 Iron, Serum Normal Iron (Fe) 73 ug/dL 50-170 u g/dL [facility]: 0 [facility] 11/10/2020 Vitamin B12, Serum Normal Vitamin B12 Level 500 pg/mL 247-911 pg/mL [facility]: [address] [facility] 11/10/2020 Vitamin D, 25-Hydroxy, Total, Serum Low Total 25(Oh) Vitamin D 25.3 NG/mL 30.0-100.0 NG/mL [facility] nter: [address] [facility] 11/10/2020 C Reactive Protein, QN, Serum or Plasma High C Reactive Protein Quantitativ 0.66 mg/dL 0.00-0.30 mg/dL [facility]: 0 [facility] 08/10/2020 CMP, Serum or Plasma Normal Glucose, Fastin g 82 mg/dL 70-100 mg/dL [facility]: [address] [facility] Normal Blood Urea Nitrogen 15 mg/dL 7-18 mg /dL [facility]: [address] [place] [address] Normal Creatinine for GFR 0.70 mg/dL 0.55-1 .30 mg/dL [facility]: [address] [facility] Normal Glomerular Filtration Rate > 60.0 >6 0 [facility]: [address] [facility] Normal Sodium Level 139 mEq/L 136-145 mEq/L [facility]: 0 [facility] Normal Potassium Serum 4.5 mEq/L 3.5-5.1 mE q/L [facility]: [address] [facility] Normal Chloride Level 104 mEq/L 98-107 mEq/ L [facility]: [address] [facility] Normal Carbon Dioxide Level 28 mEq/L 21-32 mEq/L [facility]: [address] [facility] Low Anion Gap 7 mEq/L 8-16 mEq/L [facility]: 0 [facility] Normal Calcium Level 9.3 mg/dL 8.5-10.1 mg/ dL [facility]: 0 [facility] Normal AST/SGOT 10 U/L 7-37 U/L [facility]: [address] [facility] Normal ALT/SGPT 18 U/L 12-78 U/L [facility]: [address] [facility] Normal Alkaline Phosphatase 95 U/L 45-117 U /L [facility]: [address] [facility] Normal Bilirubin,total 0.3 mg/dL 0.2-1.0 mg /dL [facility]: [address] [facility] Normal Total Protein 7.2 gm/dL 6.4-8.2 gm/d L [facility]: [address] [facility] Normal Albumin 3.8 gm/dL 3.2-5.2 gm/dL [place] [facility]: [address] [facility] Low Albumin/globulin Ratio 1.1 1.2-2. 2 [facility]: [address] [facility] 08/10/2020 Lipid Panel, Blood High Triglycerides Lev el 212 mg/dL <150 mg/dL [facility]: [address] [facility] High Cholesterol Level 216 mg/dL <200 mg/ dL [facility]: [address] [facility] Normal HDL Cholesterol 51 mg/dL >40 mg/dL [facility]: [address] [facility] High LDL Cholesterol 123 mg/dL <100 mg/dL [facility]: 0 [facility] Normal Non-hdl-c 165 mg/dL [facility]: [address] [facility] Normal Cholesterol Risk Ratio 4.235 <5 [facility]: [address] [facility] 08/10/2020 C Reactive Protein, QN, Serum or Plasma High C Reactive Protein Quantitativ 0.68 mg/dL 0.00-0.30 mg/dL [facility]: 0 [facility] 08/10/2020 CBC W/ Auto Diff Normal White Blood Count 6.2 10 4.0-10.0 10 [facility]: 0 [facility] Normal Red Blood Count 5.03 10 4.00-5.40 10 [facility]: [address] [facility] Normal Hemoglobin 14.6 g/dL 12.0-15.5 g/dL Final [facility]: [address] [facility] Normal Hematocrit 44.1 % 36.0-47.0 % [facility]: [address] [facility] Normal Mean Corpuscular Volume 87.7 fL 80.0 -96.0 fL [facility]: [address] [facility] Normal Mean Corpuscular Hemoglobin 29.0 pg 27.0-33.0 pg Final [facility]: [address] [place] [address] Normal Mean Corpuscular HGB Conc 33.1 g/dL 32.0-36.5 g/dL [facility]: [address] [place] [address] Normal Red Cell Distribution Width 12.1 % 1 1.5-14.5 % [facility]: [address] [place] [address] Normal Platelet Count, Automated 264 10 150 -450 10 [facility]: [address] [facility] Normal Neutrophils % 51.6 % 36.0-66.0 % [facility]: [address] [facility] Normal Lymph % 31.5 % 24.0-44.0 % [facility]: [address] [facility] High Rowan % 8.3 % 0.0-8.0 % [facility]: 0 [facility] High Eos % 7.4 % 0.0-3.0 % [facility]: 0 [facility] Normal Baso % 1.0 % 0.0-1.0 % [facility]: 0 [facility] Normal Immature Granulocyte % 0.2 % 0-3.0 % [facility]: [address] [place] [address] Normal Nucleated Red Blood Cell % 0.0 % 0- 0 % [facility]: 0 [facility] Normal Neutrophils # 3.2 10 1.5-8.5 10 [facility]: [address] [facility] Normal Lymph # 2.0 10 1.5-5.0 10 [facility]: [address] [facility] Normal Rowan # 0.5 10 0.0-0.8 10 [facility]: [address] [facility] Normal Eos # 0.5 10 0.0-0.5 10 [facility]: [address] [facility] Normal Baso # 0.1 10 0.0-0.2 10 [facility]: [address] [facility] 08/10/2020 ESR (Erythrocyte Sedimentation Rate), Blood Nor mal Erythrocyte Sedimentation Rate 9 mm/HR 0-20 mm/HR [facility]: [address] [place] [address] 08/10/2020 Lyme Disease Igg+igm Ab, Serum Normal Lyme Disease IgG/IgM Antibodie <0.91 isr 0.00-0.90 isr [facility]: [address] [place] [address] Normal Lyme Disease IgM Ab Quantitati <0.80 index 0.00-0.79 index [facility]: [address] [facility] 05/05/2020 SARS CoV 2 RNA (COVID-19), QL, pattern layout worker-PCR, Respiratory Specimen Nasopharyngeal Normal Sars Cov 2 RNA not detected not detected Fi nal Past Encounters 05/31/2021 Body Mass Index 30+ - Obesity; Bunion Chidi Trent MD: [address] [place] [phone], Ph. 04/05/2021 Body Mass Index 30+ - Obesity; Attention Deficit Hyperactivity Disorder; Administration of Influenza Vaccine Chidi Trent MD: [address] [place] [phone], Ph. 03/12/2021 Attention Deficit Hyperactivity Disorder Chidi Trent MD: [address] [place] [phone], Ph. 01/29/2021 Swelling of First Metatarsal Joint of Hallux of Right Foot Armand Sinclair, RPA-C: [address] [facility], [address] [address], Ph. 12/03/2020 Multiple Joint Pain; Attention Deficit Hyperactivity Disorder; Body Mass Index 30+ - Obesity Chidi Trent MD: [address] [place] [phone], Ph. 08/10/2020 Chidi Trent MD: [address] [place] [address], Ph. 07/27/2020 Attention Deficit Hyperactivity Disorder; Multiple Joint Pain; Adult Health Examination Chidi Trent MD: [address] [place] [phone], Ph. 05/05/2020 Exposure to SARS-CoV-2 Chidi Trent MD: [address] [place] [phone], Ph. Social History Tobacco Smoking Status Never Smoker Vaccine List Vaccine Type COVID-19, mRNA, LNP-S, PF, 100 mcg/0.5 m L dose (Moderna) 11/11/2020 12/09/2020 influenza, injectable, quadrivalent 03/04/2020 influenza, injectable, quadrivalent, pre servative free .5 mL .05 mL varicella .5 mL Plan of Care Reminders Provider Appointments None recorded. Lab None recorded. Referral None recorded. Procedures None recorded. Surgeries None recorded. Imaging None recorded. Vitals 05/31/2021 03:40PM MEDICAL CLEARANCE Height Weight BMI Blood Pressure 62 in 182 lbs 4 oz 33.3 kg/m2 125/84 mm[Hg] 04/05/2021 02:00PM SAME DAY 20 Height Weight BMI Blood Pressure 62 in 186 lbs 4 oz 34.1 kg/m2 115/78 mm[Hg] 03/12/2021 02:40PM ESTABLISHED [id number] Height Weight BMI Blood Pressure 62 in 188 lbs 4 oz 34.4 kg/m2 110/76 mm[Hg] 01/29/2021 03:10PM SAME DAY 20 Height Weight BMI Blood Pressure 62 in 189 lbs 34.6 kg/m2 120/81 mm[Hg] 12/03/2020 02:00PM ANNUAL EXAM Height Weight BMI Blood Pressure 62 in 184 lbs 33.7 kg/m2 117/79 mm[Hg] 07/27/2020 11:40AM ESTABLISHED [id number] Height Weight BMI Blood Pressure 62 in 184 lbs 3 oz 33.7 kg/m2 128/83 mm[Hg] 03/13/2020 Height Weight BMI Blood Pressure 62 in 181 lbs 33.22 kg/m2 127/85 mm[Hg] 12/13/2019 Height Weight BMI Blood Pressure 62 in 186 lbs 34.14 kg/m2 139/88 mm[Hg]"
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
--- OUTSIDE RECORDS SUMMARY | 2021-06-02 07:50 | CCD ---
Author Organization Unknown Address [address] [place] [address] Phone [phone] Care Team Providers Care Knotter Name Role Phone Armand Sinclair Carlos Unavailable Unavailable Allergies Notes: NORTHINDRONE BC - Reaction: depr ession | TAPE ADHESIVES - Reaction: rash Medications Name Status Start Date Stop Date celecoxib 200 mg capsule TAKE 1 CAPSULE BY MOUTH ONCE DAILY WITH FOOD Active Not available cephalexin 500 mg capsule Completed 2020 cyclobenzaprine 10 mg tablet as needed Active Not available dextroamphetamine-amphetamine ER 25 mg 2 4hr capsule,extend release TAKE 1 CAPSULE BY MOUTH TWICE DAILY Active Not available diclofenac 1 % topical gel APPLY 4 GRAMS TO AFFECTED AREA 4 TIMES DAILY NEEDED Active Not available ergocalciferol (vitamin D2) 1,250 mcg (5 0,000 unit) capsule TAKE 1 CAPSULE BY MOUTH ONCE A WEEK Active Not available fluconazole 150 mg tablet Completed 2020 fluticasone propionate 50 mcg/actuation nasal spray,suspension C ompleted 07/27/2020 Fluzone Quad [id number] (PF) 60 mcg (15 mcg x 4)/0.5 [...] 12/03/2020 Procedures Date Name Performed by 01/29/2021 Jaron KIRK [facility] Ce nter Radiology [address] [place] [address] (Work Place) Notes: tubal ligation 2002, gallbladder 2004, perirurthral cyst, carpal tunnel both hand, breast reduction/ reconstruction, partial hysterectomy 2011, ganglion cyst right wrist, cervical fusion 2017,2019 neck, Tonsillectomy 2009 Results Lab Results Date Name Specimen Result Interpretation Description Value Range Status Address 03/19/2021 Vitamin D, 25-Hydroxy, Total, Serum Low Total 25(Oh) Vitamin D 23.5 NG/mL 30.0-100.0 NG/mL Final [facility] [place] nter: [address] [facility] 12/13/2020 CBC W/ Auto Diff Normal White Blood Count 5.9 10 4.0-10.0 10 [facility]: [address] [place] [address] Normal Red Blood Count 4.94 10 4.00-5.40 10 [facility]: [address] [place] [address] Normal Hemoglobin 14.2 g/dL 12.0-15.5 g/dL [facility]: [address] [place] [address] Normal Hematocrit 43.7 % 36.0-47.0 % [facility]: [address] [place] [address] Normal Mean Corpuscular Volume 88.5 fL 80.0 -96.0 fL [facility]: [address] [place] [address] Normal Mean Corpuscular Hemoglobin 28.7 pg 27.0-33.0 pg [facility]: 0 [facility] Normal Mean Corpuscular HGB Conc 32.5 g/dL 32.0-36.5 g/dL [facility]: [address] [place] [address] Normal Red Cell Distribution Width 12.2 % 1 1.5-14.5 % [facility]: [address] [place] [address] Normal Platelet Count, Automated 261 10 150 -450 10 [facility]: [address] [facility] Normal Neutrophils % 59.5 % 36.0-66.0 % [facility]: [address] [facility] Normal Lymph % 28.3 % 24.0-44.0 % [facility]: [address] [facility] Normal Morgan % 6.7 % 2.0-8.0 % Final [facility]: [address] [facility] High Eos % 4.5 % 0.0-3.0 % [facility]: [address] [facility] Normal Baso % 0.7 % 0.0-1.0 % [facility]: [address] [facility] Normal Immature Granulocyte % 0.3 % 0-3.0 % [facility]: [address] [facility] Normal Nucleated Red Blood Cell % 0.0 % 0- 0 % [facility]: [address] [facility] Normal Neutrophils # 3.5 10 1.5-8.5 10 [facility]: [address] [facility] Normal Lymph # 1.7 10 1.5-5.0 10 [facility]: [address] [facility] Normal Morgan # 0.4 10 0.0-0.8 10 [facility]: [address] [facility] Normal Eos # 0.3 10 0.0-0.5 10 [facility]: [address] [facility] Normal Baso # 0.0 10 0.0-0.2 10 [facility]: [address] [facility] 12/13/2020 Drug Screen, Urine High Amphetamines Leve l Urine positive negative [facility]: [address] [facility] Normal Barbiturates Urine negative negative [facility]: [address] [facility] Normal Benzodiazepines Urine negative negat lorne [facility]: [address] [facility] Normal Cannabinoids Urine negative negative [facility]: [address] [facility] Normal Cocaine Metabolite Urine negative ne gative [facility]: [address] [facility] Normal Methadone Urine negative negative Fi nal [facility]: [address] [facility] Normal Opiates Urine negative negative Nkechi l [facility]: [address] [facility] Normal Phencyclidine Urine negative negativ e [facility]: [address] [facility] 12/13/2020 BMP, Serum or Plasma Normal Glucose, Fastin g 86 mg/dL 70-100 mg/dL [facility]: [address] 0 [facility] High Blood Urea Nitrogen 19 mg/dL 7-18 mg /dL [facility]: [address] [facility] Normal Creatinine for GFR 0.61 mg/dL 0.55-1 .30 mg/dL [facility]: [address] [facility] Normal Glomerular Filtration Rate > 60.0 >6 0 [facility]: [address] [facility] Normal Sodium Level 139 mEq/L 136-145 mEq/L [facility]: [address] [facility] Normal Potassium Serum 5.0 mEq/L 3.5-5.1 mE q/L [facility]: [address] [facility] Normal Chloride Level 106 mEq/L 98-107 mEq/ L [facility]: [address] [facility] Normal Carbon Dioxide Level 28 mEq/L 21-32 mEq/L [facility]: [address] [facility] Low Anion Gap 5 mEq/L 8-16 mEq/L [facility]: [address] [facility] Normal Calcium Level 8.9 mg/dL 8.5-10.1 mg/ dL [facility]: [address] [facility] 12/13/2020 Magnesium, Serum or Plasma Normal Magnesium Level 2.3 mg/dL 1.8-2.4 mg/dL [facility]: [address] 0 [facility] 12/13/2020 Thyroid Panel, Serum Low T Uptake 29 % 30 -39 % [facility]: [address] [facility] Normal Thyroxine (T4) 9.0 ug/dL 4.5-12.0 ug /dL [facility]: [address] [place] [address] Normal Free Thyroxine Index 2.6 % 1.3-4.8 % [facility]: [address] [facility] Normal Thyroid Stimulating Hormone 1. 360 uIU/mL 0.358-3.740 uIU/mL [facility]: [address] [facility] 12/13/2020 Vitamin B12, Serum High Vitamin B12 Level 1271 pg/mL 247-911 pg/mL [facility]: [address] 0 [facility] 12/13/2020 Lyme Disease Igg+igm Ab, Serum Normal Lyme Disease IgG/IgM Antibodie <0.91 isr 0.00-0.90 isr [facility]: [address] [place] [address] Normal Lyme Disease IgM Ab Quantitati <0.80 index 0.00-0.79 index [facility]: [address] [facility] 11/10/2020 Phosphorus Level Normal Phosphorus Level 2 .7 mg/dL 2.5-4.9 mg/dL [facility]: [address] [facility] 11/10/2020 CK (Creatine Kinase) Mb, Quantitative, Blood Hi gh CPK Creatine Phosphokinase 533 U/L 26-192 U/L [facility]: 0 [facility] 11/10/2020 Magnesium, Serum or Plasma Normal Magnesium Level 2.1 mg/dL 1.8-2.4 mg/dL [facility]: [address] 0 [facility] 11/10/2020 Iron, Serum Normal Iron (Fe) 73 ug/dL 50-170 u g/dL [facility]: 0 [facility] 11/10/2020 Vitamin B12, Serum Normal Vitamin B12 Level 500 pg/mL 247-911 pg/mL [facility]: [address] 0 [facility] 11/10/2020 Vitamin D, 25-Hydroxy, Total, Serum Low Total 25(Oh) Vitamin D 25.3 NG/mL 30.0-100.0 NG/mL [facility] nter: [address] [facility] 11/10/2020 C Reactive Protein, QN, Serum or Plasma High C Reactive Protein Quantitativ 0.66 mg/dL 0.00-0.30 mg/dL [facility]: [address] [place] [address] 08/10/2020 CMP, Serum or Plasma Normal Glucose, Fastin g 82 mg/dL 70-100 mg/dL [facility]: [address] 0 [facility] Normal Blood Urea Nitrogen 15 mg/dL 7-18 mg /dL [facility]: [address] [place] [address] Normal Creatinine for GFR 0.70 mg/dL 0.55-1 .30 mg/dL [facility]: [address] [place] [address] Normal Glomerular Filtration Rate > 60.0 >6 0 [facility]: [address] [facility] Normal Sodium Level 139 mEq/L 136-145 mEq/L [facility]: 0 [facility] Normal Potassium Serum 4.5 mEq/L 3.5-5.1 mE q/L [facility]: 0 [facility] Normal Chloride Level 104 mEq/L 98-107 mEq/ L [facility]: 0 [facility] Normal Carbon Dioxide Level 28 mEq/L 21-32 mEq/L [facility]: 0 [facility] Low Anion Gap 7 mEq/L 8-16 mEq/L [facility]: 0 [facility] Normal Calcium Level 9.3 mg/dL 8.5-10.1 mg/ dL [facility]: [address] [facility] Normal AST/SGOT 10 U/L 7-37 U/L [facility]: [address] [facility] Normal ALT/SGPT 18 U/L 12-78 U/L [facility]: [address] [facility] Normal Alkaline Phosphatase 95 U/L 45-117 U /L [facility]: [address] [facility] Normal Bilirubin,total 0.3 mg/dL 0.2-1.0 mg /dL [facility]: [address] [facility] Normal Total Protein 7.2 gm/dL 6.4-8.2 gm/d L [facility]: [address] [facility] Normal Albumin 3.8 gm/dL 3.2-5.2 gm/dL Nkechi l [facility]: [address] [facility] Low Albumin/globulin Ratio 1.1 1.2-2. 2 [facility]: [address] [facility] 08/10/2020 Lipid Panel, Blood High Triglycerides Lev el 212 mg/dL <150 mg/dL [facility]: [address] 0 [facility] High Cholesterol Level 216 mg/dL <200 mg/ dL [facility]: [address] [facility] Normal HDL Cholesterol 51 mg/dL >40 mg/dL F wanettel [facility]: [address] [facility] High LDL Cholesterol 123 mg/dL <100 mg/dL [facility]: [address] [facility] Normal Non-hdl-c 165 mg/dL [facility]: [address] [facility] Normal Cholesterol Risk Ratio 4.235 <5 [facility]: [address] [facility] 08/10/2020 C Reactive Protein, QN, Serum or Plasma High C Reactive Protein Quantitativ 0.68 mg/dL 0.00-0.30 mg/dL [facility]: [address] [facility] 08/10/2020 CBC W/ Auto Diff Normal White Blood Count 6.2 10 4.0-10.0 10 [facility]: 0 [facility] Normal Red Blood Count 5.03 10 4.00-5.40 10 [facility]: 0 [facility] Normal Hemoglobin 14.6 g/dL 12.0-15.5 g/dL [facility]: [address] [facility] Normal Hematocrit 44.1 % 36.0-47.0 % [facility]: [address] [facility] Normal Mean Corpuscular Volume 87.7 fL 80.0 -96.0 fL [facility]: [address] [facility] Normal Mean Corpuscular Hemoglobin 29.0 pg 27.0-33.0 pg Final [facility]: [address] [facility] Normal Mean Corpuscular HGB Conc 33.1 g/dL 32.0-36.5 g/dL Final [facility]: [address] [facility] Normal Red Cell Distribution Width 12.1 % 1 1.5-14.5 % [facility]: [address] [place] [address] Normal Platelet Count, Automated 264 10 150 -450 10 [facility]: 0 [facility] Normal Neutrophils % 51.6 % 36.0-66.0 % [facility]: [address] [facility] Normal Lymph % 31.5 % 24.0-44.0 % Final [facility]: [address] [facility] High Morgan % 8.3 % 0.0-8.0 % Final [facility]: 0 [facility] High Eos % 7.4 % 0.0-3.0 % [facility]: 0 [facility] Normal Baso % 1.0 % 0.0-1.0 % [facility]: [address] [facility] Normal Immature Granulocyte % 0.2 % 0-3.0 % [facility]: [address] [facility] Normal Nucleated Red Blood Cell % 0.0 % 0- 0 % [facility]: [address] [facility] Normal Neutrophils # 3.2 10 1.5-8.5 10 [facility]: [address] [facility] Normal Lymph # 2.0 10 1.5-5.0 10 [facility]: [address] [facility] Normal Morgan # 0.5 10 0.0-0.8 10 [facility]: [address] [facility] Normal Eos # 0.5 10 0.0-0.5 10 Final [facility]: [address] [facility] Normal Baso # 0.1 10 0.0-0.2 10 Final [facility]: [address] [facility] 08/10/2020 ESR (Erythrocyte Sedimentation Rate), Blood Nor mal Erythrocyte Sedimentation Rate 9 mm/HR 0-20 mm/HR [facility]: [address] [facility] 08/10/2020 Lyme Disease Igg+igm Ab, Serum Normal Lyme Disease IgG/IgM Antibodie <0.91 isr 0.00-0.90 isr [facility]: [address] [facility] Normal Lyme Disease IgM Ab Quantitati <0.80 index 0.00-0.79 index [facility]: 0 [facility] 05/05/2020 SARS CoV 2 RNA (COVID-19), QL, donor floor technician-PCR, Respiratory Specimen Nasopharyngeal Normal Sars Cov 2 RNA not detected not detected Fi nal Past Encounters 04/05/2021 Body Mass Index 30+ - Obesity; Attention Deficit Hyperactivity Disorder; Administration of Influenza Vaccine Chidi Trent MD: [address] [place] [phone], Ph. 03/12/2021 Attention Deficit Hyperactivity Disorder Chidi Trent MD: [address] [place] [phone], Ph. 01/29/2021 Swelling of First Metatarsal Joint of Hallux of Right Foot Armand Sinclair, RPA-C: [address] [facility], [place] [address], Ph. 12/03/2020 Multiple Joint Pain; Attention Deficit Hyperactivity Disorder; Body Mass Index 30+ - Obesity Chidi Trent MD: [address] [place] [address], Ph. 08/10/2020 Chidi Trent MD: [address] [place] [phone], Ph. 07/27/2020 Attention Deficit Hyperactivity Disorder; Multiple Joint Pain; Adult Health Examination Chidi Trent MD: [address] [place] [address], Ph. 05/05/2020 Exposure to SARS-CoV-2 Chidi Trent MD: [address] [place] [address], Ph. Social History Tobacco Smoking Status Never Smoker Vaccine List Vaccine Type COVID-19, mRNA, LNP-S, PF, 100 mcg/0.5 m L dose 11/11/2020 12/09/2020 influenza, injectable, quadrivalent 03/04/2020 influenza, injectable, quadrivalent, pre servative free 03/13/20200.5 mL .05 mL varicella 03/13/20200.5 mL Plan of Care Reminders Provider Appointments None recorded. Lab None recorded. Referral None recorded. Procedures None recorded. Surgeries None recorded. Imaging None recorded. Vitals 04/05/2021 02:00PM SAME DAY 20 Height Weight BMI Blood Pressure 62 in 186 lbs 4 oz 34.1 kg/m2 115/78 mm[Hg] 03/12/2021 02:40PM ESTABLISHED [id number] Height Weight BMI Blood Pressure 62 in 188 lbs 4 oz 34.4 kg/m2 110/76 mm[Hg] 01/29/2021 03:10PM SAME DAY 20 Height Weight BMI Blood Pressure 62 in 189 lbs 34.6 kg/m2 120/81 mm[Hg] 12/03/2020 02:00PM ANNUAL EXAM Height Weight BMI Blood Pressure 62 in 184 lbs 33.7 kg/m2 117/79 mm[Hg] 07/27/2020 11:40AM ESTABLISHED [id number] Height Weight BMI Blood Pressure 62 in 184 lbs 3 oz 33.7 kg/m2 128/83 mm[Hg] 03/13/2020 Height Weight BMI Blood Pressure 62 in 181 lbs 33.22 kg/m2 127/85 mm[Hg] 12/13/2019 Height Weight BMI Blood Pressure 62 in 186 lbs 34.14 kg/m2 139/88 mm[Hg]"
--- OUTSIDE RECORDS SUMMARY | 2021-06-02 07:50 | CCD ---
Author Author [facility] Organization [facility] Address Unknown Phone Unavailable Care Team Providers Care Guard Sergeant Name Role Phone Shyanne Longo PROBLEMS Type Condition ICD9-CM Code [id number] Code Onset Dates Condition S tatus W/U Status Risk SNOMED Code Notes Problem History of electrolyte imbalance Z86.39 Active confirmed 258456078 Problem Osteoarthritis of hip, unspe cified laterality, unspecified osteoarthritis type M16.9 Active confirmed 528632476 Problem Vitamin D insufficiency E55.9 Active confirmed 94177899 Problem Fibromyalgia M79.7 Active confirmed 7818536 05 Problem Polymyalgia rheumatica M35.3 Active confirmed 25750231 Problem Osteoarthritis of hand, unsp ecified laterality, 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 Active confirmed 03965169 Problem Elevated C-reactive protein (CRP) R79.82 Active confirmed [id number] ALLERGIES Allergen (clinical drug ingredient) Drug/Non Drug Allergy do cumented on EMR Reaction Allergy Type Onset Date Status Adhesive Bandages Plastic([facility] Code:40029-63837) rash Drug Allergy Active nortriptyline Nortriptyline HCl(ND Code:[address]-49) Unknown Dr carballo Allergy Active ENCOUNTERS from 1981 to 2021-05-24 Encounter Location Date Provider Diagnosis [facility] Rheumatology [address] [place] [address] [place] [address] Apr, Shyanne Longo IMMUNIZATIONS Vaccine Route Administration Date Status TDAP [...] REASON FOR REFERRAL No Information VITAL SIGNS No information MEDICATIONS Medication SIG (Take, Route, Frequency, Duration) [...] 10 day(s) Jan, Active Ergocalciferol 1.25 MG (04074 UT) 1 tablet Orally weekly for 30 day(s ) Active PROCEDURES No Information RESULTS No Results REASON FOR VISIT Requesting Celebrex increase MEDICAL (GENERAL) HISTORY Type Description Date Medical [...] No Information FUNCTIONAL STATUS No Information ASSESSMENTS No Information PLAN OF TREATMENT Medication Medication Name Sig Start Date Stop Date Celecoxib 200 MG 1 capsule with food Orally Once a day for 30 da y(s) Voltaren 1 % apply 4 g of 1% gel to affec crista area Transdermal four times daily as needed for 30 days Mar, Ergocalciferol 1.25 MG (23702 UT) 1 tablet Orally weekly for 30 day(s) Next Appt Details Provider Name:Shyanne Longo, 2021-07-30 03:45:00 PM, [address] [place] [address], , [place], [place], [facility], Insurance Providers Payer Name Payer Address Payer Phone Insured Name Patient Relati onship to Insured Coverage Start Date Coverage End Date [place] [phone] [phone] RAQUEL LARSON self
--- OUTSIDE RECORDS SUMMARY | 2021-06-02 07:50 | CCD ---
Author Organization Unknown Address [address] [place] [address] Phone [phone] Care Team Providers Care Glass Melt Operator Name Role Phone Armand Sinclair Carlos [...] nasal spray,suspension C ompleted 07/27/2020 Fluzone Quad [id number] (PF) 60 mcg (15 mcg x 4)/0.5 [...] Date Name Performed by 01/29/2021 Jaron KIRK [facility] nter Radiology [address] [place] [address] (Work Place) Notes: tubal ligation 2002, gallbladder 2004, perirurthral cyst, carpal tunnel both hand, breast reduction/ reconstruction, partial hysterectomy 2011, ganglion cyst right wrist, cervical fusion 2017,2019 neck, Tonsillectomy 2009 Results Lab Results Date Name Specimen Result Interpretation Description Value Range Status Address 03/19/2021 Vitamin D, 25-Hydroxy, Total, Serum Low Total 25(Oh) Vitamin D 23.5 NG/mL 30.0-100.0 NG/mL Final [facility] nter: [address] [facility] 12/13/2020 CBC W/ Auto Diff Normal White Blood Count 5.9 10 4.0-10.[address] [facility]: [address] [place] [address] Normal Red Blood Count 4.94 10 4.00-5.[address] [facility]: [address] [place] [address] Normal Hemoglobin 14.2 g/dL 12.0-15.5 g/dL [facility]: [address] [place] [address] Normal Hematocrit 43.7 % 36.0-47.0 % [facility]: [address] [place] [address] Normal Mean Corpuscular Volume 88.5 fL 80.0 -96.[address] [facility]: [address] [place] [address] Normal Mean Corpuscular Hemoglobin 28.7 pg 27.0-33.[address] [facility]: 0 [facility] Normal Mean Corpuscular HGB Conc 32.5 g/dL 32.0-36.5 g/dL [facility]: [address] [place] [address] Normal Red Cell Distribution Width 12.2 % 1 1.5-14.5 % [facility]: [address] [place] [address] Normal Platelet Count, Automated 261 10 150 -[address] [facility]: [address] [facility] Normal Neutrophils % 59.5 % 36.0-66.0 % [facility]: [address] [facility] Normal Lymph % 28.3 % 24.0-44.0 % [facility]: [address] [facility] Normal [place] % 6.7 % 2.0-8.0 % Final [facility]: [address] [facility] High Eos % 4.5 % 0.0-3.0 % [facility]: [address] [facility] Normal Baso % 0.7 % 0.0-1.0 % [facility]: [address] [facility] Normal Immature Granulocyte % 0.3 % 0-3.0 % [facility]: [address] [facility] Normal Nucleated Red Blood Cell % 0.0 % 0- 0 % [facility]: [address] [facility] Normal Neutrophils # 3.5 10 1.5-8.5 10 [facility]: [address] [facility] Normal Lymph # 1.7 10 1.5-5.0 10 [facility]: [address] [facility] Normal [place] # 0.4 10 0.0-0.8 10 [facility]: [address] [facility] Normal Eos # 0.3 10 0.0-0.5 10 [facility]: [address] [facility] Normal Baso # 0.0 10 0.0-0.2 10 [facility]: [address] [facility] 12/13/2020 Drug Screen, Urine High Amphetamines Leve l Urine positive negative [facility]: [address] 0 [facility] Normal Barbiturates Urine negative negative [facility]: [address] [facility] Normal Benzodiazepines Urine negative negat lorne [facility]: [address] [facility] Normal Cannabinoids Urine negative negative [facility]: [address] [facility] Normal Cocaine Metabolite Urine negative ne gative [facility]: [address] [facility] Normal Methadone Urine negative negative Fi nal [facility]: [address] [facility] Normal Opiates Urine negative negative Nkechi l [facility]: [address] [facility] Normal Phencyclidine Urine negative negativ e [facility]: [address] [facility] 12/13/2020 BMP, Serum or Plasma Normal Glucose, Fastin g 86 mg/dL 70-100 mg/dL [facility]: [address] 0 [facility] High Blood Urea Nitrogen 19 mg/dL 7-18 mg /dL [facility]: [address] [facility] Normal Creatinine for GFR 0.61 mg/dL 0.55-1 .30 mg/dL [facility]: [address] [facility] Normal Glomerular Filtration Rate > 60.0 >[address] [facility]: [address] [facility] Normal Sodium Level 139 mEq/L 136-145 mEq/L [facility]: [address] [facility] Normal Potassium Serum 5.0 mEq/L 3.5-5.1 mE q/L [facility]: [address] [facility] Normal Chloride Level 106 mEq/L 98-107 mEq/ L [facility]: [address] [facility] Normal Carbon Dioxide Level 28 mEq/L 21-32 mEq/L [facility]: [address] [facility] Low Anion Gap 5 mEq/L 8-16 mEq/L [facility]: [address] [facility] Normal Calcium Level 8.9 mg/dL 8.5-10.1 mg/ dL [facility]: [address] [facility] 12/13/2020 Magnesium, Serum or Plasma Normal Magnesium Level 2.3 mg/dL 1.8-2.4 mg/dL [facility]: [address] 0 [facility] 12/13/2020 Thyroid Panel, Serum Low T Uptake 29 % 30 -39 % [facility]: [address] [facility] Normal Thyroxine (T4) 9.0 ug/dL 4.5-12.0 ug /dL [facility]: [address] [place] [address] Normal Free Thyroxine Index 2.6 % 1.3-4.8 % [facility]: [address] [facility] Normal Thyroid Stimulating Hormone 1. 360 uIU/mL 0.358-3.740 uIU/mL [facility]: [address] [facility] 12/13/2020 Vitamin B12, Serum High Vitamin B12 Level 1271 pg/mL 247-911 pg/mL [facility]: 83 0 [facility] 12/13/2020 Lyme Disease Igg+igm Ab, Serum Normal Lyme Disease IgG/IgM Antibodie <0.91 isr 0.00-0.90 isr [facility]: [address] [place] [address] Normal Lyme Disease IgM Ab Quantitati <0.80 index 0.00-0.[address] [facility]: [address] [facility] 11/10/2020 Phosphorus Level Normal Phosphorus Level 2 .7 mg/dL 2.5-4.9 mg/dL [facility]: 83 0 [facility] 11/10/2020 CK (Creatine Kinase) Mb, Quantitative, Blood Hi gh CPK Creatine Phosphokinase 533 U/L 26-192 U/L [facility]: 0 [facility] 11/10/2020 Magnesium, Serum or Plasma Normal Magnesium Level 2.1 mg/dL 1.8-2.4 mg/dL [facility]: 83 0 [facility] 11/10/2020 Iron, Serum Normal Iron (Fe) 73 ug/dL 50-170 u g/dL [facility]: 0 [facility] 11/10/2020 Vitamin B12, Serum Normal Vitamin B12 Level 500 pg/mL 247-911 pg/mL [facility]: 83 0 [facility] 11/10/2020 Vitamin D, 25-Hydroxy, Total, Serum Low Total 25(Oh) Vitamin D 25.3 NG/mL 30.0-100.0 NG/mL [facility] nter: [address] [facility] 11/10/2020 C Reactive Protein, QN, Serum or Plasma High C Reactive Protein Quantitativ 0.66 mg/dL 0.00-0.30 mg/dL [facility]: [address] [place] [address] 08/10/2020 CMP, Serum or Plasma Normal Glucose, Fastin g 82 mg/dL 70-100 mg/dL [facility]: 83 0 [facility] Normal Blood Urea Nitrogen 15 mg/dL 7-18 mg /dL [facility]: [address] [place] [address] Normal Creatinine for GFR 0.70 mg/dL 0.55-1 .30 mg/dL [facility]: [address] [place] [address] Normal Glomerular Filtration Rate > 60.0 >[address] [facility]: [address] [facility] Normal Sodium Level 139 mEq/L 136-145 mEq/L [facility]: 0 [facility] Normal Potassium Serum 4.5 mEq/L 3.5-5.1 mE q/L [facility]: 0 [facility] Normal Chloride Level 104 mEq/L 98-107 mEq/ L [facility]: 0 [facility] Normal Carbon Dioxide Level 28 mEq/L 21-32 mEq/L [facility]: 0 [facility] Low Anion Gap 7 mEq/L 8-16 mEq/L [facility]: 0 [facility] Normal Calcium Level 9.3 mg/dL 8.5-10.1 mg/ dL [facility]: [address] [facility] Normal AST/SGOT 10 U/L 7-37 U/L [facility]: [address] [facility] Normal ALT/SGPT 18 U/L 12-78 U/L [facility]: [address] [facility] Normal Alkaline Phosphatase 95 U/L 45-117 U /L [facility]: [address] [facility] Normal Bilirubin,total 0.3 mg/dL 0.2-1.0 mg /dL [facility]: [address] [facility] Normal Total Protein 7.2 gm/dL 6.4-8.2 gm/d L [facility]: [address] [facility] Normal Albumin 3.8 gm/dL 3.2-5.2 gm/dL Nkechi l [facility]: [address] [facility] Low Albumin/globulin Ratio 1.1 1.2-2. 2 [facility]: [address] [facility] 08/10/2020 Lipid Panel, Blood High Triglycerides Lev el 212 mg/dL <150 mg/dL [facility]: 83 0 [facility] High Cholesterol Level 216 mg/dL <200 mg/ dL [facility]: [address] [facility] Normal HDL Cholesterol 51 mg/dL >40 mg/dL F enterprisel [facility]: [address] [facility] High LDL Cholesterol 123 mg/dL <100 mg/dL [facility]: [address] [facility] Normal Non-hdl-c 165 mg/dL [facility]: [address] [facility] Normal Cholesterol Risk Ratio 4.[address] <[address] [facility]: [address] [facility] 08/10/2020 C Reactive Protein, QN, Serum or Plasma High C Reactive Protein Quantitativ 0.68 mg/dL 0.00-0.30 mg/dL [facility]: [address] [facility] 08/10/2020 CBC W/ Auto Diff Normal White Blood Count 6.2 10 4.0-10.[address] [facility]: 0 [facility] Normal Red Blood Count 5.03 10 4.00-5.[address] [facility]: 0 [facility] Normal Hemoglobin 14.6 g/dL 12.0-15.5 g/dL [facility]: [address] [facility] Normal Hematocrit 44.1 % 36.0-47.0 % [facility]: [address] [facility] Normal Mean Corpuscular Volume 87.7 fL 80.0 -96.[address] [facility]: [address] [facility] Normal Mean Corpuscular Hemoglobin 29.0 pg 27.0-33.0 pg Final [facility]: [address] [facility] Normal Mean Corpuscular HGB Conc 33.1 g/dL 32.0-36.5 g/dL Final [facility]: [address] [facility] Normal Red Cell Distribution Width 12.1 % 1 1.5-14.5 % [facility]: [address] [place] [address] Normal Platelet Count, Automated 264 10 150 -[address] [facility]: 0 [facility] Normal Neutrophils % 51.6 % 36.0-66.0 % [facility]: [address] [facility] Normal Lymph % 31.5 % 24.0-44.0 % Final [facility]: [address] [facility] High [place] % 8.3 % 0.0-8.0 % Final [facility]: 0 [facility] High Eos % 7.4 % 0.0-3.0 % [facility]: 0 [facility] Normal Baso % 1.0 % 0.0-1.0 % [facility]: [address] [facility] Normal Immature Granulocyte % 0.2 % 0-3.0 % [facility]: [address] [facility] Normal Nucleated Red Blood Cell % 0.0 % 0- 0 % [facility]: [address] [facility] Normal Neutrophils # 3.2 10 1.5-8.5 10 [facility]: [address] [facility] Normal Lymph # 2.0 10 1.5-5.0 10 [facility]: [address] [facility] Normal [place] # 0.5 10 0.0-0.8 10 [facility]: [address] [facility] Normal Eos # 0.5 10 0.0-0.5 10 [facility]: [address] [facility] Normal Baso # 0.1 10 0.0-0.2 10 Final [facility]: [address] [facility] 08/10/2020 ESR (Erythrocyte Sedimentation Rate), Blood Nor mal Erythrocyte Sedimentation Rate 9 mm/HR 0-20 mm/HR [facility]: [address] [facility] 08/10/2020 Lyme Disease Igg+igm Ab, Serum Normal Lyme Disease IgG/IgM Antibodie <0.91 isr 0.00-0.90 isr [facility]: [address] [facility] Normal Lyme Disease IgM Ab Quantitati <0.80 index 0.00-0.[address] [facility]: 0 [facility] 05/05/2020 SARS CoV 2 RNA (COVID-19), QL, outreach team member-PCR, Respiratory Specimen Nasopharyngeal Normal Sars Cov 2 RNA not detected not detected Fi nal Past Encounters 04/05/2021 Body Mass Index 30+ - Obesity; Attention Deficit Hyperactivity Disorder Chidi Trent MD: [address] [place] [address], Ph. 03/12/2021 Attention Deficit Hyperactivity Disorder Chidi Trent MD: [address] [place] [address], Ph. 01/29/2021 Swelling of First Metatarsal Joint of [place] of Right Foot Armand Sinclair, RPA-C: [address] [facility] [address], Ph. 12/03/2020 Multiple Joint Pain; Attention Deficit Hyperactivity Disorder; Body Mass Index 30+ - Obesity Chidi Trent MD: [address] [place] [address], Ph. 08/10/2020 Chidi Trent MD: [address] [place] [phone], Ph. 07/27/2020 Attention Deficit Hyperactivity Disorder; Multiple Joint Pain; Adult Health Examination Chidi Trent MD: [address] [place] [address], Ph. 05/05/2020 Exposure to SARS-CoV-2 Chidi Trent MD: [address] [place] [address], Ph. Social History Tobacco Smoking Status Never [...] 34.1 kg/m2 115/78 mm[Hg] 03/12/2021 02:40PM ESTABLISHED [id number] Height Weight BMI Blood Pressure 62 in 188 lbs 4 oz 34.4 kg/m2 110/76 mm[Hg] 01/29/2021 03:10PM SAME DAY 20 Height Weight BMI Blood Pressure 62 in 189 lbs 34.6 kg/m2 120/81 mm[Hg] 12/03/2020 02:00PM ANNUAL EXAM Height Weight BMI Blood Pressure 62 in 184 lbs 33.7 kg/m2 117/79 mm[Hg] 07/27/2020 11:40AM ESTABLISHED [id number] Height Weight BMI Blood Pressure 62 in 184 lbs 3 oz 33.7 kg/m2 128/83 mm[Hg] 03/13/2020 Height Weight BMI Blood Pressure 62 in 181 lbs 33.22 kg/m2 127/85 mm[Hg] 12/13/2019 Height Weight BMI Blood Pressure 62 in 186 lbs 34.14 kg/m2 139/88 mm[Hg]"
--- OUTSIDE RECORDS SUMMARY | 2021-06-02 07:52 | CCD ---
Author Author [facility] Organization [facility] Address Unknown Phone Unavailable Care Team Providers Care Ems Driver Name Role Phone Carlos Trent MD Unavailable Unavailable Carlos Trent MD Unavailable Unavailable Carlos Trent MD Unavailable Unavailable Carlos Trent MD Unavailable Unavailable Carlos Trent MD Unavailable Unavailable Carlos Trent MD Unavailable Unavailable Carlos Trent MD Unavailable Unavailable Carlos Trent MD Unavailable Unavailable Carlos Trent MD Unavailable Unavailable Carlos Trent MD Unavailable Unavailable Carlos Trent MD Unavailable Unavailable Carlos Trent MD Unavailable Unavailable Carlos Trent MD Unavailable Unavailable Carlos Trent MD Unavailable Unavailable Carlos Trent MD Unavailable Unavailable Carlos Trent MD Unavailable Unavailable Carlos Trent MD Unavailable Unavailable Carlos Trent MD Unavailable Unavailable Carlos Trent MD Unavailable Unavailable Carlos Trent MD Unavailable Unavailable Carlos Trent MD Unavailable Unavailable Carlos Trent MD Unavailable Unavailable Carlos Trent MD Unavailable Unavailable Carlos Trent MD Unavailable Unavailable Carlos Trent MD Unavailable Unavailable Carlos Trent MD Unavailable Unavailable Carlos Trent MD Unavailable Unavailable Carlos Trent MD Unavailable Unavailable Carlos Trent MD Unavailable Unavailable Carlos Trent MD Unavailable Unavailable Carlos Trent MD Unavailable Unavailable Carlos Trent MD Unavailable Unavailable Carlos Trent MD Unavailable Unavailable Carlos Trent MD Unavailable Unavailable Carlos Trent MD Unavailable Unavailable Carlos Trent MD Unavailable Unavailable Carlos Trent MD Unavailable Unavailable Carlos Trent MD Unavailable Unavailable Carlos Trent MD Unavailable Unavailable Carlos Trent MD Unavailable Unavailable Carlos Trent MD Unavailable Unavailable Carlos Trent MD Unavailable Unavailable Carlos Trent MD Unavailable Unavailable Carlos Trent MD Unavailable Unavailable Carlos Trent MD Unavailable Unavailable Carlos Trent MD Unavailable Unavailable Carlos Trent MD Unavailable Unavailable Carlos Trent MD Unavailable Unavailable Carlos Trent MD Unavailable Unavailable Carlos Trent MD Unavailable Unavailable Carlos Trent MD Unavailable Unavailable Carlos Trent MD Unavailable Unavailable Carlos Trent MD Unavailable Unavailable Carlos Trent MD Unavailable Unavailable Carlos Trent MD Unavailable Unavailable Carlos Trent MD Unavailable Unavailable Carlos Trent MD Unavailable Unavailable Carlos Trent MD Unavailable Unavailable Carlos Trent MD Unavailable Unavailable Carlos Trent MD Unavailable Unavailable Carlos Trent MD Unavailable Unavailable Carlos Trent MD Unavailable Unavailable Carlos Trent MD Unavailable Unavailable Carlos Trent MD Unavailable Unavailable Carlos Trent MD Unavailable Unavailable Carlos Trent MD Unavailable Unavailable Carlos Trent MD Unavailable Unavailable Carlos Trent MD Unavailable Unavailable Carlos Trent MD Unavailable Unavailable Carlos Trent MD Unavailable Unavailable Carlos Trent MD Unavailable Unavailable Carlos Trent MD Unavailable Unavailable Carlos Trent MD Unavailable Unavailable Carlos Trent MD Unavailable Unavailable Carlos Trent MD Unavailable Unavailable Carlos Trent MD Unavailable Unavailable Carlos Trent MD Unavailable Unavailable Carlos Trent MD Unavailable Unavailable Carlos Trent MD Unavailable Unavailable Carlos Trent MD Unavailable Unavailable Carlos Trent MD Unavailable Unavailable Carlos Trent MD Unavailable Unavailable Carlos Trent MD Unavailable Unavailable Carlos Trent MD Unavailable Unavailable Carlos Trent MD Unavailable Unavailable Carlos Trent MD Unavailable Unavailable Carlos Trent MD Unavailable Unavailable Carlos Trent MD Unavailable Unavailable Carlos Trent MD Unavailable Unavailable Carlos Trent MD Unavailable Unavailable Carlos Trent MD Unavailable Unavailable Carlos Trent MD Unavailable Unavailable Carlos Trent MD Unavailable Unavailable Carlos Trent MD Unavailable Unavailable Ra Abraham MD Unavailable Unavailable Ra Abraham MD Unavailable Unavailable Bolrani, Ra Almanza MD Unavailable Unavailable Bolla, Ra Almanza MD Unavailable Unavailable Bolla, Ra Almanza MD Unavailable Unavailable Bolla, Ra Almanza MD Unavailable Unavailable Bolla, Ra Almanza MD Unavailable Unavailable Bolla, Ra Almanza MD Unavailable Unavailable Bolla, Ra Almanza MD Unavailable Unavailable Bolla, Ra Almanza MD Unavailable Unavailable Bolla, Ra Almanza MD Unavailable Unavailable Bolla, Ra Almanza MD Unavailable Unavailable Bolla, Ra Almanza MD Unavailable Unavailable Bolla, Ra Almanza MD Unavailable Unavailable Bolla, Ra Almanza MD Unavailable Unavailable Bolla, Ra Almanza MD Unavailable Unavailable Bolla, Ra Almanza MD Unavailable Unavailable Bolla, Ra Almanza MD Unavailable Unavailable Bolla, Ra Almanza MD Unavailable Unavailable Bolla, Ra Almanza MD Unavailable Unavailable Bolla, Ra Almanza MD Unavailable Unavailable Bolrani, Ra Almanza MD Unavailable Unavailable Bolla, Ra Almanza MD Unavailable Unavailable Bolla, Ra Almanza MD Unavailable Unavailable Bolla, Ra Almanza MD Unavailable Unavailable Bolla, aR Almanza MD Unavailable Unavailable Bolla, Ra Almanza MD Unavailable Unavailable Bolrani, Ra Almanza MD Unavailable Unavailable Bolla, Ra Almanza MD Unavailable Unavailable Bolrani, Ra Almanza MD Unavailable Unavailable Bolla, Ra Almanza MD Unavailable Unavailable Bolrani, Ra Almanza MD Unavailable Unavailable Bolla, Ra Almanza MD Unavailable Unavailable Bolrani, Ra Almanza MD Unavailable Unavailable Bolrani, Ra Almanza MD Unavailable Unavailable Bolrani, Ra Almanza MD Unavailable Unavailable Bolla, Ra Almanza MD Unavailable Unavailable Bolrani, Ra Almanza MD Unavailable Unavailable Bolrani, Ra Almanza MD Unavailable Unavailable Bolrani, Ra Almanza MD Unavailable Unavailable Bolrani, Ra Almanza MD Unavailable Unavailable Bolla, Ra Almanza MD Unavailable Unavailable Bolrani, Ra Almanza MD Unavailable Unavailable Bolla, Ra Almanza MD Unavailable Unavailable Bolla, Ra Almanza MD Unavailable Unavailable Bolla, Ra Almanza MD Unavailable Unavailable Bolla, Ra Almanza MD Unavailable Unavailable Bolrani, Ra Almanza MD Unavailable Unavailable Bolla, Ra Almanza MD Unavailable Unavailable SINCLAIR, PEDRO ARMAND RPA-C Unavailable Unavailable SINCLAIR, PEDRO ARMAND RPA-C Unavailable Unavailable SINCLAIR, PEDRO ARMAND RPA-C Unavailable Unavailable SINCLAIR, PEDRO ARMAND RPA-C Unavailable Unavailable SINCLAIR, PEDRO ARMAND RPA-C Unavailable Unavailable SINCLAIR, PEDRO ARMAND RPA-C Unavailable Unavailable SINCLAIR, PEDRO ARMAND RPA-C Unavailable Unavailable SINCLAIR, PEDRO ARMAND RPA-C Unavailable Unavailable SINCLAIR, PEDRO ARMAND RPA-C Unavailable Unavailable SINCLAIR, PEDRO ARMAND RPA-C Unavailable Unavailable SINCLAIR, PEDRO ARMAND RPA-C Unavailable Unavailable SINCLAIR, PEDRO ARMAND RPA-C Unavailable Unavailable SINCLAIR, PEDRO ARMAND RPA-C Unavailable Unavailable SINCLAIR, PEDRO ARMAND RPA-C Unavailable Unavailable SINCLAIR, PEDRO ARMAND RPA-C Unavailable Unavailable SINCLAIR, PEDRO ARMAND RPA-C Unavailable Unavailable SINCLAIR, PEDRO ARMAND RPA-C Unavailable Unavailable SINCLAIR, PEDRO ARMAND RPA-C Unavailable Unavailable SINCLAIR, PEDRO ARMAND RPA-C Unavailable Unavailable SINCLAIR, PEDRO ARMAND RPA-C Unavailable Unavailable SINCLAIR, PEDRO ARMAND RPA-C Unavailable Unavailable SINCLAIR, PEDRO ARMAND RPA-C Unavailable Unavailable SINCLAIR, PEDRO ARMAND RPA-C Unavailable Unavailable SINCLAIR, PEDRO RAMAND RPA-C Unavailable Unavailable SINCLAIR, PEDRO ARMAND RPA-C Unavailable Unavailable SINCLAIR, PEDRO ARMAND RPA-C Unavailable Unavailable SINCLAIR, PEDRO ARMAND RPA-C Unavailable Unavailable SINCLAIR, PEDRO ARMAND RPA-C Unavailable Unavailable SINCLAIR, PEDRO ARMAND RPA-C Unavailable Unavailable SINCLAIR, PEDRO ARMAND RPA-C Unavailable Unavailable SINCLAIR, PEDRO ARMAND RPA-C Unavailable Unavailable SINCLAIR, PEDRO ARMAND RPA-C Unavailable Unavailable SINCLAIR, PEDRO ARMAND RPA-C Unavailable Unavailable SINCLAIR, PEDRO ARMAND RPA-C Unavailable Unavailable SINCLAIR, PEDRO ARMAND RPA-C Unavailable Unavailable SINCLAIR, PEDRO ARMAND RPA-C Unavailable Unavailable SINCLAIR, PEDRO ARMAND RPA-C Unavailable Unavailable SINCLAIR, PEDRO ARMAND RPA-C Unavailable Unavailable SINCLAIR, PEDRO ARMAND RPA-C Unavailable Unavailable SINCLAIR, PEDRO ARMAND RPA-C Unavailable Unavailable SINCLAIR, PEDRO ARMAND RPA-C Unavailable Unavailable SINCLAIR, PEDRO ARMAND RPA-C Unavailable Unavailable SINCLAIR, PEDRO ARMAND RPA-C Unavailable Unavailable Villatoro, Sandi Gloria PA Unavailable Unavailable Villatoro, Sandi Gloria PA Unavailable Unavailable Villatoro, Sandi Gloria PA Unavailable Unavailable Villatoro, Sandi Gloria PA Unavailable Unavailable Villatoro, Sandi Gloria PA Unavailable Unavailable Villatoro, Sandi Gloria PA Unavailable Unavailable Villatoro, Sandi Gloria PA Unavailable Unavailable Villatoro, Sandi Gloria PA Unavailable Unavailable Villatoro, Sandi Gloria PA Unavailable Unavailable Villatoro, Sandi Gloria PA Unavailable Unavailable Trickey, J Lise PA Unavailable Unavailable Trickey, J Lise PA Unavailable Unavailable Trickey, J Lise PA Unavailable Unavailable Trickey, J Lise PA Unavailable Unavailable Trickey, J Lise PA Unavailable Unavailable Trickey, J Lise PA Unavailable Unavailable Trickey, J Lise PA Unavailable Unavailable Trickey, J Lise PA Unavailable Unavailable Trickey, J Lise PA Unavailable Unavailable Trickey, J Lise PA Unavailable Unavailable Trickey, J Lise PA Unavailable Unavailable Trickey, J Lise PA Unavailable Unavailable Trickey, J Lise PA Unavailable Unavailable Trickey, J Lise PA Unavailable Unavailable Trickey, J Lise PA Unavailable Unavailable Trickey, J Lise PA Unavailable Unavailable Trickey, J Lise PA Unavailable Unavailable Trickey, J Lise PA Unavailable Unavailable Trickey, J Lise PA Unavailable Unavailable Trickey, J Lise PA Unavailable Unavailable Trickey, J Lise PA Unavailable Unavailable Trickey, J Lise PA Unavailable Unavailable Trickey, J Lise PA Unavailable Unavailable Trickey, J Lise PA Unavailable Unavailable Trickey, J Lise PA Unavailable Unavailable Trickey, J Lise PA Unavailable Unavailable Trickey, J Lise PA Unavailable Unavailable Trickey, J Lise PA Unavailable Unavailable Trickey, J Lise PA Unavailable Unavailable Trickey, J Lise PA Unavailable Unavailable Trickey, J Lise PA Unavailable Unavailable Trickey, J Lise PA Unavailable Unavailable Trickey, J Lise PA Unavailable Unavailable Trickey, J Lise PA Unavailable Unavailable Trickey, J Lise PA Unavailable Unavailable Trickey, J Lise PA Unavailable Unavailable Trickey, J Lise PA Unavailable Unavailable Trickey, J Lise PA Unavailable Unavailable Trickey, J Lise PA Unavailable Unavailable Trickey, J Lise PA Unavailable Unavailable Trickey, J Lise PA Unavailable Unavailable Trickey, J Lise PA Unavailable Unavailable Trickey, J Lise PA Unavailable Unavailable Trickey, J Lise PA Unavailable Unavailable Trickey, J Lise PA Unavailable Unavailable Trickey, J Lise PA Unavailable Unavailable Trickey, J Lise PA Unavailable Unavailable Trickey, J Lise PA Unavailable Unavailable Trickey, J Lise PA Unavailable Unavailable Pugh, M Barratt PA Unavailable Unavailable Pugh, M Barratt PA Unavailable Unavailable Pugh, M Barratt PA Unavailable Unavailable Pugh, M Barratt PA Unavailable Unavailable Pugh, M Barratt PA Unavailable Unavailable Pugh, M Barratt PA Unavailable Unavailable Pugh, M Barratt PA Unavailable Unavailable Pugh, M Barratt PA Unavailable Unavailable Pugh, M Barratt PA Unavailable Unavailable Pugh, M Barratt PA Unavailable Unavailable Pugh, M Barratt PA Unavailable Unavailable Pugh, M Barratt PA Unavailable Unavailable Pugh, M Barratt PA Unavailable Unavailable Pugh, M Barratt PA Unavailable Unavailable Pugh, M Barratt PA Unavailable Unavailable Pugh, M Barratt PA Unavailable Unavailable Pugh, M Barratt PA Unavailable Unavailable Pugh, M Barratt PA Unavailable Unavailable Pugh, M Barratt PA Unavailable Unavailable Pugh, M Barratt PA Unavailable Unavailable Pugh, M Barratt PA Unavailable Unavailable Pugh, M Barratt PA Unavailable Unavailable Pugh, M Barratt PA Unavailable Unavailable Pugh, M Barratt PA Unavailable Unavailable Pugh, M Barratt PA Unavailable Unavailable Pugh, M Barratt PA Unavailable Unavailable Pugh, M Barratt PA Unavailable Unavailable Pugh, M Barratt PA Unavailable Unavailable Pugh, M Barratt PA Unavailable Unavailable Jumalon, M Cinthia LONGSHORE EQUIPMENT OPERATOR Unavailable Unavailable Jumalon, M Cinthia LONGSHORE EQUIPMENT OPERATOR Unavailable Unavailable Jumalon, M Cinthia LONGSHORE EQUIPMENT OPERATOR Unavailable Unavailable Jumalon, M Cinthia LONGSHORE EQUIPMENT OPERATOR Unavailable Unavailable Jumalon, M Cinthia LONGSHORE EQUIPMENT OPERATOR Unavailable Unavailable Jumalon, M Cinthia LONGSHORE EQUIPMENT OPERATOR Unavailable Unavailable Jumalon, M Cinthia LONGSHORE EQUIPMENT OPERATOR Unavailable Unavailable Jumalon, M Cinthia LONGSHORE EQUIPMENT OPERATOR Unavailable Unavailable Jumalon, M Cinthia LONGSHORE EQUIPMENT OPERATOR Unavailable Unavailable Jumalon, M Cinthia LONGSHORE EQUIPMENT OPERATOR Unavailable Unavailable Jumalon, M Cinthia LONGSHORE EQUIPMENT OPERATOR Unavailable Unavailable Jumalon, M Cinthia LONGSHORE EQUIPMENT OPERATOR Unavailable Unavailable Jumalon, M Cinthia LONGSHORE EQUIPMENT OPERATOR Unavailable Unavailable Jumalon, M Cinthia LONGSHORE EQUIPMENT OPERATOR Unavailable Unavailable Jumalon, M Cinthia LONGSHORE EQUIPMENT OPERATOR Unavailable Unavailable Jumalon, M Cinthia LONGSHORE EQUIPMENT OPERATOR Unavailable Unavailable Jumalon, M Cinthia LONGSHORE EQUIPMENT OPERATOR Unavailable Unavailable Jumalon, M Cinthia LONGSHORE EQUIPMENT OPERATOR Unavailable Unavailable Jumalon, M Cinthia LONGSHORE EQUIPMENT OPERATOR Unavailable Unavailable Jumalon, M Cinthia LONGSHORE EQUIPMENT OPERATOR Unavailable Unavailable Jumalon, M Cinthia LONGSHORE EQUIPMENT OPERATOR Unavailable Unavailable Jumalon, M Cinthia LONGSHORE EQUIPMENT OPERATOR Unavailable Unavailable Jumalon, M Cinthia LONGSHORE EQUIPMENT OPERATOR Unavailable Unavailable Jumalon, M Cinthia LONGSHORE EQUIPMENT OPERATOR Unavailable Unavailable Jumalon, M Cinthia LONGSHORE EQUIPMENT OPERATOR Unavailable Unavailable Jumalon, M Cinthia LONGSHORE EQUIPMENT OPERATOR Unavailable Unavailable Jumalon, M Cinthia LONGSHORE EQUIPMENT OPERATOR Unavailable Unavailable Jumalon, M Cinthia LONGSHORE EQUIPMENT OPERATOR Unavailable Unavailable Jumalon, M Cinthia LONGSHORE EQUIPMENT OPERATOR Unavailable Unavailable Jumalon, M Cinthia LONGSHORE EQUIPMENT OPERATOR Unavailable Unavailable Carlos Trent MD Unavailable Unavailable Carlos Trent MD Unavailable Unavailable Carlos Trent MD Unavailable Unavailable Carlos Trent MD Unavailable Unavailable Carlos Trent MD Unavailable Unavailable Carlos Trent MD Unavailable Unavailable Carlos Trent MD Unavailable Unavailable Carlos Trent MD Unavailable Unavailable Carlos Trent MD Unavailable Unavailable Carlos Trent MD Unavailable Unavailable Carlos Trent MD Unavailable Unavailable Carlos Trent MD Unavailable Unavailable Carlos Trent MD Unavailable Unavailable Carlos Trent MD Unavailable Unavailable Carlos Trent MD Unavailable Unavailable Carlos Trent MD Unavailable Unavailable Carlos Trent MD Unavailable Unavailable Carlos Trent MD Unavailable Unavailable Carlos Trent MD Unavailable Unavailable Carlos Trent MD Unavailable Unavailable Carlos Trent MD Unavailable Unavailable Carlos Trent MD Unavailable Unavailable Carlos Trent MD Unavailable Unavailable Carlos Trent MD Unavailable Unavailable Carlos Trent MD Unavailable Unavailable Carlos Trent MD Unavailable Unavailable Carlos Trent MD Unavailable Unavailable Carlos Trent MD Unavailable Unavailable Carlos Trent MD Unavailable Unavailable Carlos Trent MD Unavailable Unavailable Carlos Trent MD Unavailable Unavailable Carlos Trent MD Unavailable Unavailable Carlos Trent MD Unavailable Unavailable Carlos Trent MD Unavailable Unavailable Carlos Trent MD Unavailable Unavailable Carlos Trent MD Unavailable Unavailable Carlos Trent MD Unavailable Unavailable Carlos Trent MD Unavailable Unavailable Carlos Trent MD Unavailable Unavailable Carlos Trent MD Unavailable Unavailable Carlos Trent MD Unavailable Unavailable Carlos Trent MD Unavailable Unavailable Carlos Trent MD Unavailable Unavailable Carlos Trent MD Unavailable Unavailable Carlos Trent MD Unavailable Unavailable Carlos Trent MD Unavailable Unavailable Carlos Trent MD Unavailable Unavailable Trent, Carlos Murillo MD Unavailable Unavailable Trent, Carlos Murillo MD Unavailable Unavailable Trent, Carlos Murillo MD Unavailable Unavailable Trent, D Chidi MD Unavailable Unavailable Trent, D Chidi MD Unavailable Unavailable Rtent, D Chidi MD Unavailable Unavailable Trent, D Chidi MD Unavailable Unavailable Trent, D Chidi MD Unavailable Unavailable Trent, D Chidi MD Unavailable Unavailable Trent, D Chidi MD Unavailable Unavailable Trent, D Chidi MD Unavailable Unavailable Trent, D Chidi MD Unavailable Unavailable Trent, D Chidi MD Unavailable Unavailable Trent, D Chidi MD Unavailable Unavailable Trent, D Chidi MD Unavailable Unavailable Trent, D Chidi MD Unavailable Unavailable Trent, Carlos Murillo MD Unavailable Unavailable Trent, Carlos Murillo MD Unavailable Unavailable Trent, Carlos Murillo MD Unavailable Unavailable Trent, Carlos Murillo MD Unavailable Unavailable Trent, D Chidi MD Unavailable Unavailable Trent, D Chidi MD Unavailable Unavailable Trent, D Chidi MD Unavailable Unavailable Trent, D Chidi MD Unavailable Unavailable Trent, D Chidi MD Unavailable Unavailable Trent, D Chidi MD Unavailable Unavailable Trent, D Chidi MD Unavailable Unavailable Trent, Carlos Murillo MD Unavailable Unavailable Trent, D Chidi MD Unavailable Unavailable Trent, D Chidi MD Unavailable Unavailable Trent, Carlos Murillo MD Unavailable Unavailable Trent, Carlos Murillo MD Unavailable Unavailable Trent, Carlos Murillo MD Unavailable Unavailable Trent, Carlos Murillo MD Unavailable Unavailable Trent, Carlos Murillo MD Unavailable Unavailable Trent, Carlos Murillo MD Unavailable Unavailable Trent, Carlos Murillo MD Unavailable Unavailable Trent, Carlos Murillo MD Unavailable Unavailable Trent, D Chidi MD Unavailable Unavailable Trent, D Chidi MD Unavailable Unavailable Trent, D Chidi MD Unavailable Unavailable Trent, D Chidi MD Unavailable Unavailable Trent, D Chidi MD Unavailable Unavailable Trent, D Chidi MD Unavailable Unavailable Trent, D Chidi MD Unavailable Unavailable Trent, Carlos Murillo MD Unavailable Unavailable Trent, Carlos Murillo MD Unavailable Unavailable Re-disclosure Warning The records that you are about to access may contain information from federally-assisted alcohol or drug abuse programs. If such information is present, then the following federally mandated warning applies: This information has been disclosed to you from records protected by federal confidentiality rules (42 CFR part 2). The federal rules prohibit you from making any further disclosure of this information unless further disclosure is expressly permitted by the written consent of the person to whom it pertains or as otherwise permitted by 42 CFR part 2. A general authorization for the release of medical or other information is NOT sufficient for this purpose. The Federal rules restrict any use of the information to criminally investigate or prosecute any alcohol or drug abuse patient.The records that you are about to access may contain highly sensitive health information, the redisclosure of which is protected by Article 27-F of the [facility] Public Health law. If you continue you may have access to information: Regarding HIV / AIDS; Provided by facilities licensed or operated by the [facility] Office of Mental Health; or Provided by the [facility] Office for People With Developmental Disabilities. If such information is present, then the following [facility] mandated warning applies: This information has been disclosed to you from confidential records which are protected by state law. State law prohibits you from making any further disclosure of this information without the specific written consent of the person to whom it pertains, or as otherwise permitted by law. Any unauthorized further disclosure in violation of state law may result in a fine or alf sentence or both. A general authorization for the release of medical or other information is NOT sufficient authorization for further disc losure. Allergies and Adverse Reactions Type Description Substance Reaction Status Data Source(s ) Allergy to substance Allergy to substance Allergy to substance [place] ([facility]) Allergy to substance Allergy to substance Allergy to substance [place] ([facility]) Allergy to substance Allergy to substance Allergy to substance [place] ([facility]) Allergy to substance Allergy to substance Allergy to substance [place] ([facility]) Allergy to substance Allergy to substance Allergy to substance [place] ([facility]) Family History Family Member Name Family Member Gender Family Member Status Date o f Status Description Data Source(s) Unknown Condition [facility] Unknown Condition [facility] Unknown Condition [facility] Encounters Encounter Providers Location Date Indications Data Source(s ) Chidi Trent MD: [address] [place] [phone], Ph. Attender: Chidi Trent MD [facility] Medical 05/31/2021 12:00:00 AM EST [place] ([facility]) Outpatient Attender: Sis RICCI Physical Therapy 02:00:00 PM EST [place] ([facility]) Cinthia Montes, PLASTICS FABRICATOR OR WELDER: [address], [place] [address], Ph. Attender: Cinthia IBARRA [place] - [facility] 05/24/2021 12:00:00 AM EST [place] ([facility]) Unknown [address] [facility] [address] 05/18/2021 12:00:00 AM EST eCW1 ([facility]) [place] [address] [facility] [address] 04/23/2021 12:00:00 AM EDT eCW1 ([facility]) Cinthia Montes, PLASTICS FABRICATOR OR WELDER: [address], [place] [address], Ph. Attender: Cinthia Montes [facility] - [facility] - [facility] 04/07/2021 12:00:00 AM EDT [place] ([facility]) Cinthia Montes, PLASTICS FABRICATOR OR WELDER: [address], [place] [address], Ph. Attender: Cinthia Montes [facility] - [facility] 04/07/2021 12:00:00 AM EDT [place] ([facility]) Chidi Trent MD: [address] [place] [address], Ph. Attender: Chidi Trent MD [facility] Medical 04/05/2021 12:00:00 AM EDT [place] ([facility]) Chidi Trent MD: [address] [place] [address], Ph. Attender: Chidi Trent MD [facility] Medical 04/05/2021 12:00:00 AM EDT [place] ([facility]) Chidi Trent MD: [address] [place] [phone], Ph. Attender: Chidi Trent MD [facility] Medical 04/05/2021 12:00:00 AM EDT [place] ([facility]) Outpatient [id number] [facility] [place] [address] 03/30/2021 12:00:00 AM EDT eCW1 ([facility]) Outpatient Attender: Sis RICCI Physical Therapy 10:00:00 AM EDT MED[place] ([facility]) Outpatient Attender: Lise RICCI Main office - [facility] 03/15/2021 02:30:00 PM EDT [facility] ([facility]) Chidi Trent MD: [address] [place] [address], Ph. Attender: [facility] [facility] 03/12/2021 12:00:00 AM EDT AP[facility] ([facility]) Chidi Trent MD: [address] [place] [address], Ph. Attender: Chidi Trent MD [facility] 03/12/2021 12:00:00 AM EDT [place] ([facility]) Chidi Trent MD: [address] [place] [address], Ph. Attender: Chidi Trent MD [facility] 03/12/2021 12:00:00 AM EDT [place] ([facility]) Chidi Trent MD: [address] [place] [address], Ph. Attender: Chidi Trent MD [facility] 03/12/2021 12:00:00 AM EDT AP[place] ([facility]) Cinthia Montes, PLASTICS FABRICATOR OR WELDER: [address], [address], [place] [address], Ph. Attender: Cinthia Montes [facility] - [facility] - Main Office 02/23/2021 12:00:00 AM EDT ATHE NA ([facility]) Cinthia Montes, PLASTICS FABRICATOR OR WELDER: [address], [address], [place] [address], Ph. Attender: Cinthia Montes [facility] - [facility] 02/23/2021 12:00:00 AM EDT ATHE NA ([facility]) Cinthia Montes, PLASTICS FABRICATOR OR WELDER: [address], [address], [place] [address], Ph. Attender: Cinthia Montes [facility] - [facility] 02/23/2021 12:00:00 AM EDT ATHE NA ([facility]) Archie Abraham MD: [address], [place] [address], Ph. Attender: Archie PALOMINO - [facility] 02/19/2021 12:00:00 AM EDT AP[place] ([facility]) Archie Abraham MD: [address], [address], [place] [address], Ph. Attender: Archie PALOMINO - [facility] 02/19/2021 12:00:00 AM EDT AP[place] ([facility]) Archie Abraham MD: [address], [address], [place] [address], Ph. Attender: Archie Abraham MD [place] - [facility] 02/19/2021 12:00:00 AM EDT [place] ([facility]) Archie Abraham MD: [address], [address], [place] [address], Ph. Attender: Archie PALOMINO - [facility] 02/19/2021 12:00:00 AM EDT AP[place] ([facility]) Archie Abraham MD: [address], [place] [address], Ph. [phone] Attender: Archie Abraham MD [place] - [facility] 02/15/2021 12:00:00 AM EDT [place] ([facility]) Archie Abraham MD: [address], [address], [place] [address], Ph. [phone] Attender: Archie Abraham MD [place] - [facility] 02/15/2021 12:00:00 AM EDT [place] ([facility]) Archie Abraham MD: [address], [address], [place] [address], Ph. [phone] Attender: Archie Abraham MD [place] - [facility] 02/15/2021 12:00:00 AM EDT AP[place] ([facility]) Archie Abraham MD: [address], [place] [address], Ph. [phone] Attender: Archie Abraham MD [place] - [facility] 02/15/2021 12:00:00 AM EDT AP[place] ([facility]) Archie Abraham MD: [address], [place] [address], Ph. [phone] Attender: Archie Abraham MD [place] - [facility] 02/15/2021 12:00:00 AM EDT [place] ([facility]) Cinthia Montes, PLASTICS FABRICATOR OR WELDER: [address], [address], [place] [address], Ph. Attender: Cinthia Montes [facility] - [facility] 02/04/2021 12:00:00 AM EDT ATHE NA ([facility]) Cinthia Montes, PLASTICS FABRICATOR OR WELDER: [address], [address], [place] [address], Ph. Attender: Cinthia Montes [facility] - [facility] 02/04/2021 12:00:00 AM EDT ATHE NA ([facility]) Cinthia Montes, PLASTICS FABRICATOR OR WELDER: [address], [address], [place] [address], Ph. Attender: Cinthia Montes [facility] - [facility] 02/04/2021 12:00:00 AM EDT ATHE NA ([facility]) Cinthia Montes, PLASTICS FABRICATOR OR WELDER: [address], [address], [place] [address], Ph. Attender: Cinthia Montes [facility] - [facility] 02/04/2021 12:00:00 AM EDT ATHTomas NA ([facility]) Cinthia Montes, PLASTICS FABRICATOR OR WELDER: [address], [address], [place] [address], Ph. Attender: Cinthia Montes [facility] - [facility] 02/04/2021 12:00:00 AM EDT ATHE NA ([facility]) ANDRIA LiceaC: [address], [place] [address], Ph. Attender: ARMAND DO [facility] 01/29/2021 12:00:00 AM EDT AP[place] ([facility]) ANDRIA LiceaC: [address], [place] [address], Ph. Attender: ARMAND SINCLAIR RPA-C [facility] Medical 01/29/2021 12:00:00 AM EDT AP[place] ([facility]) Armand Sinclair, RPA-C: [address], [place] [address], Ph. Attender: ARMAND SINCLAIR RPA-C [facility] 01/29/2021 12:00:00 AM EDT AP[facility] ([facility]) Armand Sinclair, RPA-C: [address], [place] [address], Ph. Attender: ARMAND SINCLAIR RPA-C [facility] 01/29/2021 12:00:00 AM EDT AP[facility] ([facility]) Armand Sinclair, RPA-C: [address], [place] [address], Ph. Attender: ARMAND SINCLAIR RPA-C [facility] 01/29/2021 12:00:00 AM EDT AP[facility] ([facility]) Archie Abraham MD: [address], [place] [address], Ph. Attender: Archie PALOMINO - [facility] - Main Office 01/12/2021 12:00:00 AM EDT AP[facility] ([facility]) Archie Abraham MD: [address], [place] [address], Ph. Attender: Archie PALOMINO - [facility] - Main Office 01/12/2021 12:00:00 AM EDT AP[place] ([facility]) Archie Abraham MD: [address], [address], [place] [address], Ph. Attender: Archie Abraham MD [place] - [facility] 01/12/2021 12:00:00 AM EDT AP[facility] ([facility]) Archie Abraham MD: [address], [address], [place] [address], Ph. Attender: Archie Abraham MD [place] - [facility] 01/12/2021 12:00:00 AM EDT APPLE ([facility]) Archie Abraham MD: [address], [address], [place] [address], Ph. Attender: Archie Abraham MD [place] - [facility] 01/12/2021 12:00:00 AM EDT AP[place] ([facility]) Archie Abraham MD: [address], [address], [place] [address], Ph. Attender: Archie Abraham MD [place] - [facility] 01/12/2021 12:00:00 AM EDT AP[facility] ([facility]) Cinthia Montes, PLASTICS FABRICATOR OR WELDER: [address], [place] [address], Ph. Attender: Cinthia Montes [facility] - [facility] 12/29/2020 12:00:00 AM EDT ATHTomas MONSALVE ([facility]) Cinthia Montes, PLASTICS FABRICATOR OR WELDER: [address], [place] [address], Ph. Attender: Cinthia Montes [facility] - [facility] 12/29/2020 12:00:00 AM EDT ATHE NA ([facility]) Cinthia Montes, PLASTICS FABRICATOR OR WELDER: [address], [place] [address], Ph. Attender: Cinthia Montes [facility] - [facility] 12/29/2020 12:00:00 AM EDT ATHE NA ([facility]) Cinthia Montes, PLASTICS FABRICATOR OR WELDER: [address], [place] [address], Ph. Attender: Cinthia Montes [facility] - [facility] 12/29/2020 12:00:00 AM EDT ATHE NA ([facility]) Cinthia Montes, PLASTICS FABRICATOR OR WELDER: [address], [place] [address], Ph. Attender: Cinthia Montes [facility] - [facility] 12/29/2020 12:00:00 AM EDT ATHE NA ([facility]) Cinthia Montes, PLASTICS FABRICATOR OR WELDER: [address], [place] [address], Ph. Attender: Cinthia Montes [facility] - [facility] 12/29/2020 12:00:00 AM EDT ATHE NA ([facility]) Cinthia Montes, PLASTICS FABRICATOR OR WELDER: [address], [place] [address], Ph. Attender: Cinthia Montes [facility] - [facility] 12/29/2020 12:00:00 AM EDT ATHE NA ([facility]) Outpatient [address] [facility] [address] 12/25/2020 12:00:00 AM EDT eCW1 ([facility]) Outpatient Attender: Lise Basurto PR Main office [facility] 12/08/2020 02:00:00 PM EDT MEDENT ([facility]) Chidi Trent MD: [address] [place] [address], Ph. Attender: Chidi Trent MD [facility] 12/03/2020 12:00:00 AM EDT APPLE ([facility]) Chidi Trent MD: [address] [place] [address], Ph. Attender: Chidi Trent MD [facility] 12/03/2020 12:00:00 AM EDT APPLE ([facility]) Chidi Trent MD: [address] [place] [address], Ph. Attender: Chidi Trent MD [facility] 12/03/2020 12:00:00 AM EDT AP[place] ([facility]) Chidi Trent MD: [address] [place] [address], Ph. Attender: Chidi Trent MD [facility] 12/03/2020 12:00:00 AM EDT AP[place] ([facility]) Chidi Trent MD: [address] [place] [address], Ph. Attender: Chidi Trent MD [facility] 12/03/2020 12:00:00 AM EDT AP[place] ([facility]) Chidi Trent MD: [address] [place] [address], Ph. Attender: Chidi Trent MD [facility] 12/03/2020 12:00:00 AM EDT AP[place] ([facility]) Out[place] [address] [facility] [address] 11/09/2020 12:00:00 AM EDT eCW1 ([facility]) Unknown [address] [facility] [address] 11/07/2020 12:00:00 AM EDT eCW1 ([facility]) Outpatient Attender: Lise RICCI Main office [facility] 08/31/2020 08:30:00 AM EST MEDENT ([facility]) Chidi Trent MD: [address] [place] [address], Ph. Attender: Chidi Trent MD [facility] 08/10/2020 12:00:00 AM EST AP[facility] ([facility]) Chidi Trent MD: [address] [place] [address], Ph. Attender: Chidi Trent MD [facility] 08/10/2020 12:00:00 AM EST AP[facility] ([facility]) Chidi Trent MD: [address] [place] [address], Ph. Attender: Chidi Trent MD [facility] 08/10/2020 12:00:00 AM EST AP[facility] ([facility]) Chidi Trent MD: [address] [place] [address], Ph. Attender: Chidi Trent MD [facility] 08/10/2020 12:00:00 AM EST [facility] ([facility]) Chidi Trent MD: [address] [place] [address], Ph. Attender: Chidi Trent MD [facility] 08/10/2020 12:00:00 AM EST AP[facility] ([facility]) Chidi Trent MD: [address] [place] [address], Ph. Attender: Chidi Trent MD [facility] 08/10/2020 12:00:00 AM EST AP[facility] ([facility]) Chidi Trent MD: [address] [place] [address], Ph. Attender: Chidi Trent MD [facility] 08/10/2020 12:00:00 AM EST AP[facility] ([facility]) Chidi Trent MD: [address] [place] [address], Ph. Attender: Chidi Trent MD [facility] 07/27/2020 12:00:00 AM EST AP[facility] ([facility]) Chidi Trent MD: [address] [place] [address], Ph. Attender: Chidi Trent MD [facility] 07/27/2020 12:00:00 AM EST [facility] ([facility]) Chidi Trent MD: [address] [place] [address], Ph. Attender: Chidi Trent MD [facility] 07/27/2020 12:00:00 AM EST AP[facility] ([facility]) Chidi Trent MD: [address] [place] [address], Ph. Attender: Chidi Trent MD [facility] 07/27/2020 12:00:00 AM EST AP[facility] ([facility]) Chidi Trent MD: [address] [place] [address], Ph. Attender: Chidi Trent MD [facility] 07/27/2020 12:00:00 AM EST [facility] ([facility]) Chidi Trent MD: [address] [place] [address], Ph. Attender: Chidi Trent MD [facility] 07/27/2020 12:00:00 AM EST [facility] ([facility]) Chidi Trent MD: [address] [place] [address], Ph. Attender: Chidi Trent MD [facility] 07/27/2020 12:00:00 AM EST AP[facility] ([facility]) Chidi Trent MD: [address] [place] [address], Ph. Attender: Chidi Trent MD [facility] 07/27/2020 12:00:00 AM EST AP[facility] ([facility]) Outpatient Attender: Gloria márquezy 05/12/2020 04:35:00 PM EST MEDENT ([facility]) Chidi Trent MD: [address] [place] [address], Ph. Attender: Chidi Trent MD [facility] 05/05/2020 12:00:00 AM EST [facility] ([facility]) Chidi Trent MD: [address] [place] [address], Ph. Attender: Chidi Trent MD [facility] 05/05/2020 12:00:00 AM EST [facility] ([facility]) Chidi Trent MD: [address] [place] [address], Ph. Attender: Chidi Trent MD [facility] 05/05/2020 12:00:00 AM EST AP[facility] ([facility]) Chidi Trent MD: [address] [place] [address], Ph. Attender: Chidi Trent MD [facility] 05/05/2020 12:00:00 AM EST [facility] ([facility]) Chidi Trent MD: [address] [place] [address], Ph. Attender: Chidi Trent MD [facility] 05/05/2020 12:00:00 AM EST [facility] ([facility]) Chidi Trent MD: [address] [place] [address], Ph. Attender: Chidi Trent MD [facility] 05/05/2020 12:00:00 AM EST [facility] ([facility]) Chidi Trent MD: [address] [place] [address], Ph. Attender: Chidi Trent MD [facility] 05/05/2020 12:00:00 AM EST [facility] ([facility]) Chidi Trent MD: [address] [place] [address], Ph. Attender: Chidi Trent MD [facility] 05/05/2020 12:00:00 AM EST [facility] ([facility]) Chidi Trent MD: [address] [place] [address], Ph. Attender: Chidi Trent MD [facility] 05/05/2020 12:00:00 AM EST [facility] ([facility]) Outpatient Attender: Chidi Trent MD 05/04/2020 01:35:01 PM [facility] Immunizations Vaccine Date Status Description Data Source(s) New in 2011. IIV4 04/05/2021 02:36:40 PM EDT completed .05 mL [place] ([facility]) New in 2011. IIV4 04/05/2021 02:36:40 PM EDT completed .05 mL [place] ([facility]) COVID-19, mRNA, LNP-S, PF, 100 mcg/0.5 mL dose (Modern a) 12/09/2020 12:00:00 AM EDT completed 12/09/2020 [place] ([facility]) COVID-19, mRNA, LNP-S, PF, 100 mcg/0.5 mL dose 12/09/2020 12 :00:00 AM EDT completed 12/09/2020 [place] ([facility]) COVID-19, mRNA, LNP-S, PF, 100 mcg/0.5 mL dose 12/09/2020 12 :00:00 AM EDT completed 12/09/2020 [place] ([facility]) COVID-19, mRNA, LNP-S, PF, 100 mcg/0.5 mL dose 12/09/2020 12 :00:00 AM EDT completed 12/09/2020 [place] ([facility]) COVID-19, mRNA, LNP-S, PF, 100 mcg/0.5 mL dose 12/09/2020 12 :00:00 AM EDT completed 12/09/2020 [place] ([facility]) COVID-19 VACCINE Moderna 12/09/2020 12:00:00 AM EDT completed [employer] Vaccine Series Complete: YESThis Data wa s Submitted to [facility] Via [employer]. COVID-19, mRNA, LNP-S, PF, 100 mcg/0.5 mL dose (Modern a) 11/11/2020 12:00:00 AM EDT completed 11/11/2020 [place] ([facility]) COVID-19, mRNA, LNP-S, PF, 100 mcg/0.5 mL dose 11/11/2020 12 :00:00 AM EDT completed 11/11/2020 [place] ([facility]) COVID-19, mRNA, LNP-S, PF, 100 mcg/0.5 mL dose 11/11/2020 12 :00:00 AM EDT completed 11/11/2020 [facility]) COVID-19, mRNA, LNP-S, PF, 100 mcg/0.5 mL dose 11/11/2020 12 :00:00 AM EDT completed 11/11/2020 [place] ([facility]) COVID-19, mRNA, LNP-S, PF, 100 mcg/0.5 mL dose 11/11/2020 12 :00:00 AM EDT completed 11/11/2020 [place] ([facility]) COVID-19 VACCINE Moderna 11/11/2020 12:00:00 AM EDT completed [facility] Vaccine Series Complete: NOThis Data was Submitted to [facility] Via [employer]. Medications Medication Brand Name Start Date Product Form Dose Route Admi nistrative Instructions Pharmacy Instructions Status Indications Reaction Description Data Source(s) Diclofenac Sodium 0.01 MG/MG Topical Gel [Voltaren] Voltaren 1 % Voltaren 1 % 03/30/2021 12:00:00 AM EDT active Voltaren 1 % eCW1 ([facility]) Diclofenac Sodium 0.01 MG/MG Topical Gel [Voltaren] Voltaren 1 % Voltaren 1 % 03/30/2021 12:00:00 AM EDT active Voltaren 1 % eCW1 ([facility]) Diclofenac Sodium 0.01 MG/MG Topical Gel [Voltaren] Voltaren 1 % Voltaren 1 % 03/30/2021 12:00:00 AM EDT active Voltaren 1 % eCW1 ([facility]) Aimovig Aimovig 03/15/2021 12:00:00 AM EDT SUBCUTANEOUS active MEDENT ([facility]) Ergocalciferol 10732 UNT Oral Capsule Ergocalciferol 1 .25 MG (24033 UT) Ergocalciferol 1.25 MG (75855 UT) 12/25/2020 12:00:00 AM EDT 1.0 {tab let} active Ergocalciferol 1.25 MG (5000 0 UT) eCW1 ([facility]) celecoxib 200 MG Oral Capsule Celecoxib 200 MG Celecoxib 200 MG 11/09/2020 12:00:00 AM EDT 1.0 {capsule_with_food} active Celecoxib 200 MG eCW1 ([facility]) celecoxib 200 MG Oral Capsule Celecoxib 200 MG Celecoxib 200 MG 11/09/2020 12:00:00 AM EDT 1.0 {capsule_with_food} active Celecoxib 200 MG eCW1 ([facility]) Prednisone 20 MG Oral Tablet Prednisone 05/12/2020 12:00:00 AM EST active MEDENT ([facility]) Prednisone 10 MG Oral Tablet prednisone 10 mg tablet prednisone 10 mg tablet completed prednisone 10 MG Oral Tablet [place] ([facility]) Prednisone 10 MG Oral Tablet prednisone 10 mg tablet prednisone 10 mg tablet completed prednisone 10 MG Oral Tablet [place] ([facility]) methylprednisolone 4 mg tablets in a dose pack USE DIRECTED 589545 completed methylprednisolone 4 mg tabl ets in a dose pack [place] ([facility]) Fluconazole 150 MG Oral Tablet fluconazole 150 mg tabl et fluconazole 150 mg tablet completed fluconazole 150 MG Oral Tablet [place] ([facility]) Prednisone 20 MG Oral Tablet prednisone 20 mg tablet TAKE 1 TABLET BY MOUTH TWICE DAILY FOR 5 DAYS prednisone 20 mg tablet TAKE 1 TABLET BY MOUTH TWICE DAILY FOR 5 DAYS completed predn isone 20 MG Oral Tablet [place] ([facility]) Prednisone 20 MG Oral Tablet prednisone 20 mg tablet TAKE 1 TABLET BY MOUTH TWICE DAILY FOR 5 DAYS prednisone 20 mg tablet TAKE 1 TABLET BY MOUTH TWICE DAILY FOR 5 DAYS completed predn isone 20 MG Oral Tablet [facility] ([facility]) Prednisone 20 MG Oral Tablet prednisone 20 mg tablet TAKE 1 TABLET BY MOUTH TWICE DAILY FOR 5 DAYS prednisone 20 mg tablet TAKE 1 TABLET BY MOUTH TWICE DAILY FOR 5 DAYS completed predn isone 20 MG Oral Tablet [facility] ([facility]) Prednisone 20 MG Oral Tablet prednisone 20 mg tablet TAKE 1 TABLET BY MOUTH TWICE DAILY FOR 5 DAYS prednisone 20 mg tablet TAKE 1 TABLET BY MOUTH TWICE DAILY FOR 5 DAYS completed predn isone 20 MG Oral Tablet [place] ([facility]) Prednisone 20 MG Oral Tablet prednisone 20 mg tablet TAKE 1 TABLET BY MOUTH TWICE DAILY FOR 5 DAYS prednisone 20 mg tablet TAKE 1 TABLET BY MOUTH TWICE DAILY FOR 5 DAYS completed predn isone 20 MG Oral Tablet [facility] ([facility]) fluticasone propionate 50 mcg/actuation nasal spray,suspension [id number] completed fluticasone propionate 0.05 MG/ACTUAT Metered Dose Nasal [place] [facility] ([facility]) Prednisone 10 MG Oral Tablet prednisone 10 mg tablet prednisone 10 mg tablet completed prednisone 10 MG Oral Tablet [place] ([facility]) potassium citrate 10 MEQ Extended Releas e Oral Tablet potassium citrate ER 10 mEq (1,080 mg) tablet,extended release potassium citrate ER 10 mEq (1,080 mg) tablet,extended release completed potassium citrate 10 MEQ Extended Release Oral Tablet [place] ([facility]) Prednisone 20 MG Oral Tablet prednisone 20 mg tablet TAKE 1 TABLET BY MOUTH TWICE DAILY FOR 5 DAYS prednisone 20 mg tablet TAKE 1 TABLET BY MOUTH TWICE DAILY FOR 5 DAYS completed predn isone 20 MG Oral Tablet [place] ([facility]) Fluconazole 150 MG Oral Tablet fluconazole 150 mg tabl et fluconazole 150 mg tablet completed fluconazole 150 MG Oral Tablet [place] ([facility]) Citric Acid 66.8 MG/ML / sodium citrate 100 MG/ML Oral Solution sodium citrate- citric acid 500 mg-334 mg/5 mL oral solution sodium citrate-citric acid 500 mg- 334 mg/5 mL oral solution completed citric acid 66.8 MG/ML / sodium citrate 100 MG/ML Oral Solution [place] ([facility]) fluticasone propionate 50 mcg/actuation nasal spray,suspension [id number] completed fluticasone propionate 0.05 MG/ACTUAT Metered Dose Nasal [place] ([facility]) Citric Acid 66.8 MG/ML / sodium citrate 100 MG/ML Oral Solution sodium citrate- citric acid 500 mg-334 mg/5 mL oral solution sodium citrate-citric acid 500 mg- 334 mg/5 mL oral solution completed citric acid 66.8 MG/ML / sodium citrate 100 MG/ML Oral Solution [place] ([facility]) latanoprost 0.05 MG/ML Ophthalmic Solution latanoprost 0.005 % eye drops latanoprost 0.005 % eye drops complete d latanoprost 0.05 MG/ML Ophthalmic Solution [place] ([facility]) Prednisone 20 MG Oral Tablet prednisone 20 mg tablet TAKE 1 TABLET BY MOUTH TWICE DAILY FOR 5 DAYS prednisone 20 mg tablet TAKE 1 TABLET BY MOUTH TWICE DAILY FOR 5 DAYS completed predn isone 20 MG Oral Tablet [place] ([facility]) potassium citrate 10 MEQ Extended Releas e Oral Tablet potassium citrate ER 10 mEq (1,080 mg) tablet,extended release potassium citrate ER 10 mEq (1,080 mg) tablet,extended release completed potassium citrate 10 MEQ Extended Release Oral Tablet [place] ([facility]) Prednisone 20 MG Oral Tablet prednisone 20 mg tablet TAKE 1 TABLET BY MOUTH TWICE DAILY FOR 5 DAYS prednisone 20 mg tablet TAKE 1 TABLET BY MOUTH TWICE DAILY FOR 5 DAYS completed predn isone 20 MG Oral Tablet [place] ([facility]) Fluzone Quad [id number] (PF) 60 mcg (15 mcg x 4)/0.5 mL IM syringe [phone] completed 0.5 ML influen za A virus A/[place] (H1N1) antigen 0.03 MG/ML / influenza A virus A/ (H3N2) antigen 0.03 MG/ML / influenza B virus B/[place] antigen 0.03 MG/ML / influenza B virus B/[facility] antigen 0.03 MG/ML Prefilled Syringe [Fluzone Quadrivalent ] [place] ([facility]) Citric Acid 66.8 MG/ML / potassium citra te 110 MG/ML / sodium citrate 100 MG/ML Oral Solution pot[place] and sod citrate-citric acid 550 mg-500 mg-334 mg/5 mL oral soln mixed with breakfast smoothie 2 times daily [place] citrate-citric acid 550 mg-500 mg-334 mg/5 mL oral soln mixed with breakfast smoothie 2 times daily completed citric acid 66.8 MG/ML / potassium citrate 110 MG/ML / sodium citrate 100 MG/ML Oral Solution [place] ([facility]) fluticasone propionate 50 mcg/actuation nasal spray,suspension [id number] completed fluticasone propionate 0.05 MG/ACTUAT Metered Dose Nasal [place] [facility]) methylprednisolone 4 mg tablets in a dose pack USE DIRECTED [id number] completed methylprednisolone 4 mg tabl ets in a dose pack [place] ([facility]) pregabalin 50 MG Oral Capsule pregabalin 50 mg capsule prega balin 50 mg capsule completed pregabalin 50 MG Oral Capsule [place] ([facility]) Citric Acid 66.8 MG/ML / potassium citra te 110 MG/ML / sodium citrate 100 MG/ML Oral Solution [place] citrate-citric acid 550 mg-500 mg-334 mg/5 mL oral soln mixed with breakfast smoothie 2 times daily [place] citrate-citric acid 550 mg-500 mg-334 mg/5 mL oral soln mixed with breakfast smoothie 2 times daily completed citric acid 66.8 MG/ML / potassium citrate 110 MG/ML / sodium citrate 100 MG/ML Oral Solution [place] ([facility]) Citric Acid 66.8 MG/ML / sodium citrate 100 MG/ML Oral Solution sodium citrate- citric acid 500 mg-334 mg/5 mL oral solution sodium citrate-citric acid 500 mg- 334 mg/5 mL oral solution completed citric acid 66.8 MG/ML / sodium citrate 100 MG/ML Oral Solution [place] ([facility]) Prednisone 20 MG Oral Tablet prednisone 20 mg tablet TAKE 1 TABLET BY MOUTH TWICE DAILY FOR 5 DAYS prednisone 20 mg tablet TAKE 1 TABLET BY MOUTH TWICE DAILY FOR 5 DAYS completed predn isone 20 MG Oral Tablet [place] ([facility]) Cyclobenzaprine hydrochloride 10 MG Oral Tablet cyclobenzaprine 10 mg tablet TAKE 1 TABLET BY MOUTH ONCE DAILY cyclobenzaprine 10 mg tablet TAKE 1 TABL ET BY MOUTH ONCE DAILY completed cyclobenzaprine hydrochloride 10 MG Oral Tablet [facility] ([facility]) fluticasone propionate 50 mcg/actuation nasal spray,suspension [id number] completed fluticasone propionate 0.05 MG/ACTUAT Metered Dose Nasal [place] ([facility]) Cephalexin 500 MG Oral Capsule cephalexin 500 mg capsu le cephalexin 500 mg capsule completed cephalexin 500 MG Oral Capsule [place] ([facility]) Fluconazole 150 MG Oral Tablet fluconazole 150 mg tabl et fluconazole 150 mg tablet completed fluconazole 150 MG Oral Tablet [place] ([facility]) potassium citrate 10 MEQ Extended Releas e Oral Tablet potassium citrate ER 10 mEq (1,080 mg) tablet,extended release potassium citrate ER 10 mEq (1,080 mg) tablet,extended release completed potassium citrate 10 MEQ Extended Release Oral Tablet [place] ([facility]) Cephalexin 500 MG Oral Capsule cephalexin 500 mg capsu le cephalexin 500 mg capsule completed cephalexin 500 MG Oral Capsule [place] ([facility]) Prednisone 20 MG Oral Tablet prednisone 20 mg tablet TAKE 1 TABLET BY MOUTH TWICE DAILY FOR 5 DAYS prednisone 20 mg tablet TAKE 1 TABLET BY MOUTH TWICE DAILY FOR 5 DAYS completed predn isone 20 MG Oral Tablet [place] ([facility]) Prednisone 20 MG Oral Tablet prednisone 20 mg tablet TAKE 1 TABLET BY MOUTH TWICE DAILY FOR 5 DAYS prednisone 20 mg tablet TAKE 1 TABLET BY MOUTH TWICE DAILY FOR 5 DAYS completed predn isone 20 MG Oral Tablet [place] ([facility]) Cephalexin 500 MG Oral Capsule cephalexin 500 mg capsu le cephalexin 500 mg capsule completed cephalexin 500 MG Oral Capsule [place] ([facility]) Citric Acid 66.8 MG/ML / potassium citra te 110 MG/ML / sodium citrate 100 MG/ML Oral Solution [place] citrate-citric acid 550 mg-500 mg-334 mg/5 mL oral soln mixed with breakfast smoothie 2 times daily pot[place] and sod citrate-citric acid 550 mg-500 mg-334 mg/5 mL oral soln mixed with breakfast smoothie 2 times daily completed citric acid 66.8 MG/ML / potassium citrate 110 MG/ML / sodium citrate 100 MG/ML Oral Solution [place] ([facility]) fluticasone propionate 50 mcg/actuation nasal spray,suspension [id number] completed fluticasone propionate 0.05 MG/ACTUAT Metered Dose Nasal [place] ([facility]) Cephalexin 500 MG Oral Capsule cephalexin 500 mg capsu le cephalexin 500 mg capsule completed cephalexin 500 MG Oral Capsule [place] ([facility]) methylprednisolone 4 mg tablets in a dose pack USE DIRECTED [id number] completed methylprednisolone 4 mg tabl ets in a dose pack [place] ([facility]) Fluzone Quad (PF) 60 mcg (15 mcg x 4)/0.5 mL IM syringe 035 603 completed 0.5 ML influen za A virus A/ (H1N1) antigen 0.03 MG/ML / influenza A virus A/ (H3N2) antigen 0.03 MG/ML / influenza B virus B/ antigen 0.03 MG/ML / influenza B virus B/[facility] antigen 0.03 MG/ML Prefilled Syringe [Fluzone Quadrivalent ] [place] ([facility]) Citric Acid 66.8 MG/ML / potassium citra te 110 MG/ML / sodium citrate 100 MG/ML Oral Solution [place] citrate-citric acid 550 mg-500 mg-334 mg/5 mL oral soln mixed with breakfast smoothie 2 times daily [place] citrate-citric acid 550 mg-500 mg-334 mg/5 mL oral soln mixed with breakfast smoothie 2 times daily completed citric acid 66.8 MG/ML / potassium citrate 110 MG/ML / sodium citrate 100 MG/ML Oral Solution [place] ([facility]) Fluzone Quad [id number] (PF) 60 mcg (15 mcg x 4)/0.5 mL IM syringe 599 759 completed 0.5 ML influen za A virus A/[place] (H1N1) antigen 0.03 MG/ML / influenza A virus A/[place] (H3N2) antigen 0.03 MG/ML / influenza B virus B/ antigen 0.03 MG/ML / influenza B virus B/[facility] antigen 0.03 MG/ML Prefilled Syringe [Fluzone Quadrivalent ] [place] ([facility]) Citric Acid 66.8 MG/ML / sodium citrate 100 MG/ML Oral Solution sodium citrate- citric acid 500 mg-334 mg/5 mL oral solution sodium citrate-citric acid 500 mg- 334 mg/5 mL oral solution completed citric acid 66.8 MG/ML / sodium citrate 100 MG/ML Oral Solution [place] ([facility]) Prednisone 10 MG Oral Tablet prednisone 10 mg tablet prednisone 10 mg tablet completed prednisone 10 MG Oral Tablet [place] ([facility]) fluticasone propionate 50 mcg/actuation nasal spray,suspension 057491 completed fluticasone propionate 0.05 MG/ACTUAT Metered Dose Nasal [place] [facility]) methylprednisolone 4 mg tablets in a dose pack USE DIRECTED [id number] completed methylprednisolone 4 mg tabl ets in a dose pack [place] ([facility]) Cephalexin 500 MG Oral Capsule cephalexin 500 mg capsu le cephalexin 500 mg capsule completed cephalexin 500 MG Oral Capsule [place] ([facility]) Citric Acid 66.8 MG/ML / sodium citrate 100 MG/ML Oral Solution sodium citrate- citric acid 500 mg-334 mg/5 mL oral solution sodium citrate-citric acid 500 mg- 334 mg/5 mL oral solution completed citric acid 66.8 MG/ML / sodium citrate 100 MG/ML Oral Solution [place] ([facility]) Prednisone 10 MG Oral Tablet prednisone 10 mg tablet prednisone 10 mg tablet completed prednisone 10 MG Oral Tablet [place] ([facility]) Prednisone 10 MG Oral Tablet prednisone 10 mg tablet prednisone 10 mg tablet completed prednisone 10 MG Oral Tablet [facility]) Cephalexin 500 MG Oral Capsule cephalexin 500 mg capsu le cephalexin 500 mg capsule completed cephalexin 500 MG Oral Capsule [facility]) methylprednisolone 4 mg tablets in a dose pack USE DIRECTED [id number] completed methylprednisolone 4 mg tabl ets in a dose pack [place] ([facility]) Fluzone Quad [id number] (PF) 60 mcg (15 mcg x 4)/0.5 mL IM syringe 226 942 completed 0.5 ML influen za A virus A/[place] (H1N1) antigen 0.03 MG/ML / influenza A virus A/[place] (H3N2) antigen 0.03 MG/ML / influenza B virus B/[place] antigen 0.03 MG/ML / influenza B virus B/[facility] antigen 0.03 MG/ML Prefilled Syringe [Fluzone Quadrivalent ] [facility]) tizanidine 4 MG Oral Tablet tizanidine 4 mg tablet TAKE 1 TABLET BY MOUTH NEEDED AT BEDTIME tizanidine 4 mg tablet TAKE 1 TABLET BY MOUTH NEEDED AT BEDTIME completed tizanidine 4 M G Oral Tablet [facility]) tizanidine 4 MG Oral Tablet tizanidine 4 mg tablet TAKE 1 TABLET BY MOUTH NEEDED AT BEDTIME tizanidine 4 mg tablet TAKE 1 TABLET BY MOUTH NEEDED AT BEDTIME completed tizanidine 4 M G Oral Tablet [facility]) methylprednisolone 4 mg tablets in a dose pack USE DIRECTED [id number] completed methylprednisolone 4 mg tabl ets in a dose pack [facility]) latanoprost 0.05 MG/ML Ophthalmic Solution latanoprost 0.005 % eye drops latanoprost 0.005 % eye drops complete d latanoprost 0.05 MG/ML Ophthalmic Solution [place] ([facility]) Fluconazole 150 MG Oral Tablet fluconazole 150 mg tabl et fluconazole 150 mg tablet completed fluconazole 150 MG Oral Tablet [place] ([facility]) Fluconazole 150 MG Oral Tablet fluconazole 150 mg tabl et fluconazole 150 mg tablet completed fluconazole 150 MG Oral Tablet [place] ([facility]) Prednisone 20 MG Oral Tablet prednisone 20 mg tablet TAKE 1 TABLET BY MOUTH TWICE DAILY FOR 5 DAYS prednisone 20 mg tablet TAKE 1 TABLET BY MOUTH TWICE DAILY FOR 5 DAYS completed predn isone 20 MG Oral Tablet [place] ([facility]) Fluconazole 150 MG Oral Tablet fluconazole 150 mg tabl et fluconazole 150 mg tablet completed fluconazole 150 MG Oral Tablet [place] ([facility]) potassium citrate 10 MEQ Extended Releas e Oral Tablet potassium citrate ER 10 mEq (1,080 mg) tablet,extended release potassium citrate ER 10 mEq (1,080 mg) tablet,extended release completed potassium citrate 10 MEQ Extended Release Oral Tablet [place] ([facility]) Fluzone Quad (PF) 60 mcg (15 mcg x 4)/0.5 mL IM syringe 850 757 completed 0.5 ML influen za A virus A/ (H1N1) antigen 0.03 MG/ML / influenza A virus A/ (H3N2) antigen 0.03 MG/ML / influenza B virus B/ antigen 0.03 MG/ML / influenza B virus B/[facility] antigen 0.03 MG/ML Prefilled Syringe [Fluzone Quadrivalent ] [facility]) Prednisone 20 MG Oral Tablet prednisone 20 mg tablet TAKE 1 TABLET BY MOUTH TWICE DAILY FOR 5 DAYS prednisone 20 mg tablet TAKE 1 TABLET BY MOUTH TWICE DAILY FOR 5 DAYS completed predn isone 20 MG Oral Tablet [place] ([facility]) Citric Acid 66.8 MG/ML / sodium citrate 100 MG/ML Oral Solution sodium citrate- citric acid 500 mg-334 mg/5 mL oral solution sodium citrate-citric acid 500 mg- 334 mg/5 mL oral solution completed citric acid 66.8 MG/ML / sodium citrate 100 MG/ML Oral Solution [place] ([facility]) Citric Acid 66.8 MG/ML / sodium citrate 100 MG/ML Oral Solution sodium citrate- citric acid 500 mg-334 mg/5 mL oral solution sodium citrate-citric acid 500 mg- 334 mg/5 mL oral solution completed citric acid 66.8 MG/ML / sodium citrate 100 MG/ML Oral Solution [place] ([facility]) Fluconazole 150 MG Oral Tablet fluconazole 150 mg tabl et fluconazole 150 mg tablet completed fluconazole 150 MG Oral Tablet [place] ([facility]) tizanidine 4 MG Oral Tablet tizanidine 4 mg tablet TAKE 1 TABLET BY MOUTH NEEDED AT BEDTIME tizanidine 4 mg tablet TAKE 1 TABLET BY MOUTH NEEDED AT BEDTIME completed tizanidine 4 M G Oral Tablet [place] ([facility]) pregabalin 50 MG Oral Capsule pregabalin 50 mg capsule prega balin 50 mg capsule completed pregabalin 50 MG Oral Capsule [place] ([facility]) fluticasone propionate 50 mcg/actuation nasal spray,suspension [id number] completed fluticasone propionate 0.05 MG/ACTUAT Metered Dose Nasal [place] ([facility]) Citric Acid 66.8 MG/ML / sodium citrate 100 MG/ML Oral Solution sodium citrate- citric acid 500 mg-334 mg/5 mL oral solution sodium citrate-citric acid 500 mg- 334 mg/5 mL oral solution completed citric acid 66.8 MG/ML / sodium citrate 100 MG/ML Oral Solution [place] ([facility]) Cyclobenzaprine hydrochloride 10 MG Oral Tablet cyclobenzaprine 10 mg tablet TAKE 1 TABLET BY MOUTH ONCE DAILY cyclobenzaprine 10 mg tablet TAKE 1 TABL ET BY MOUTH ONCE DAILY completed cyclobenzaprine hydrochloride 10 MG Oral Tablet [place] ([facility]) Prednisone 20 MG Oral Tablet prednisone 20 mg tablet TAKE 1 TABLET BY MOUTH TWICE DAILY FOR 5 DAYS prednisone 20 mg tablet TAKE 1 TABLET BY MOUTH TWICE DAILY FOR 5 DAYS completed predn isone 20 MG Oral Tablet [place] ([facility]) Prednisone 10 MG Oral Tablet prednisone 10 mg tablet prednisone 10 mg tablet completed prednisone 10 MG Oral Tablet [place] ([facility]) Prednisone 20 MG Oral Tablet prednisone 20 mg tablet TAKE 1 TABLET BY MOUTH TWICE DAILY FOR 5 DAYS prednisone 20 mg tablet TAKE 1 TABLET BY MOUTH TWICE DAILY FOR 5 DAYS completed predn isone 20 MG Oral Tablet [facility]) Citric Acid 66.8 MG/ML / sodium citrate 100 MG/ML Oral Solution sodium citrate- citric acid 500 mg-334 mg/5 mL oral solution sodium citrate-citric acid 500 mg- 334 mg/5 mL oral solution completed citric acid 66.8 MG/ML / sodium citrate 100 MG/ML Oral Solution [place] ([facility]) Fluconazole 150 MG Oral Tablet fluconazole 150 mg tabl et fluconazole 150 mg tablet completed fluconazole 150 MG Oral Tablet [place] ([facility]) Prednisone 10 MG Oral Tablet prednisone 10 mg tablet prednisone 10 mg tablet completed prednisone 10 MG Oral Tablet [place] ([facility]) Cephalexin 500 MG Oral Capsule cephalexin 500 mg capsu le cephalexin 500 mg capsule completed cephalexin 500 MG Oral Capsule [place] ([facility]) Fluzone Quad [id number] (PF) 60 mcg (15 mcg x 4)/0.5 mL IM syringe 596 411 completed 0.5 ML influen za A virus A/[place] (H1N1) antigen 0.03 MG/ML / influenza A virus A/[place] (H3N2) antigen 0.03 MG/ML / influenza B virus B/[place] antigen 0.03 MG/ML / influenza B virus B/[facility] antigen 0.03 MG/ML Prefilled Syringe [Fluzone Quadrivalent ] [place] ([facility]) Cephalexin 500 MG Oral Capsule cephalexin 500 mg capsu le cephalexin 500 mg capsule completed cephalexin 500 MG Oral Capsule [place] ([facility]) fluticasone propionate 50 mcg/actuation nasal spray,suspension 545025 completed fluticasone propionate 0.05 MG/ACTUAT Metered Dose Nasal [place] ([facility]) Insurance Providers Payer name Policy type / Coverage type Policy ID Covered democrat ID Covered democrat's relationship to waite Policy Waite Plan Information SELF PAY UNAVAILABLE SELF UNAVAILA BLE [facility] (HMO) [id number] Self [id number] Family Health Plan F [id number] SPOUSE [id number] [facility] F [id number] SPOUSE [id number] [facility] [id number] SP [id number] [facility] HEALTH PLAN U [id number] Se lf [id number] [facility] [id number] SP [id number] ANSI-Commercial [id number] [facility] Health Plan Commercial Dep Of [place]ail [id number] Dep Of Mikhail [facility] [id number] SP [id number] ANSI-Commercial [id number] [facility] P [id number] S [id number] Family Health Plan Commercial [id number] ANSI-Commercial [id number] [facility] [id number] SP [id number] [facility] [id number] SP [id number] [facility] [id number] S [id number] Problems, Conditions, and Diagnoses Code Display Name Description Problem Type Effective Dates Data Source(s) 043318521 Bunion Bunion Problem 05/31/2021 12:00:00 AM ES T [place] ([facility]) E55.9 [id number] Vitamin D insufficiency Problem 12/25/2020 1 2:00:00 AM EDT eCW1 ([facility]) M16.9 [id number] Osteoarthritis of hi p, unspecified laterality, unspecified osteoarthritis type Problem 12/25/2020 12:00:00 AM EDT eCW1 ([facility]) 247991032 Body mass index 30+ - obesity Body Mass Index 30+ - Ob esity Problem 12/03/2020 12:00:00 AM EDT [place] ([facility]) 406631540 Body mass index 30+ - obesity Body Mass Index 30+ - Ob esity Problem 12/03/2020 12:00:00 AM EDT [place] ([facility]) 358610138 Body mass index 30+ - obesity Body Mass Index 30+ - Ob esity Problem 12/03/2020 12:00:00 AM EDT [place] ([facility]) 629676710 Body mass index 30+ - obesity Body Mass Index 30+ - Ob esity Problem 12/03/2020 12:00:00 AM EDT [place] ([facility]) 972831077 Body mass index 30+ - obesity Body Mass Index 30+ - Ob esity Problem 12/03/2020 12:00:00 AM EDT [place] ([facility]) 403954932 Body mass index 30+ - obesity Body Mass Index 30+ - Ob esity Problem 12/03/2020 12:00:00 AM EDT [place] ([facility]) R79.82 [id number] Elevated C-reactive protein (CRP) Prob aurelio 11/09/2020 12:00:00 AM EDT [facility] ([facility]) M19.049 31199393 Osteoarthritis of [place], unspecified laterality, unspecified osteoarthritis type Problem 11/09/2020 12:00:00 AM EDT [facility] ([facility]) M35.3 [id number] Polymyalgia rheumatica Problem 11/09/2020 12 :00:00 AM EDT eC1 ([facility]) 89214333 Multiple joint pain Multiple Joint Pain Problem 0 07/27/2020 12:00:00 AM EST [place] ([facility]) 20440345 Multiple joint pain Multiple Joint Pain Problem 0 07/27/2020 12:00:00 AM EST [place] ([facility]) 04651612 Multiple joint pain Multiple Joint Pain Problem 0 07/27/2020 12:00:00 AM EST [place] ([facility]) 38851663 Multiple joint pain Multiple Joint Pain Problem 0 07/27/2020 12:00:00 AM EST [place] ([facility]) 27660266 Multiple joint pain Multiple Joint Pain Problem 0 07/27/2020 12:00:00 AM EST [facility] ([facility]) 52652747 Multiple joint pain Multiple Joint Pain Problem 0 07/27/2020 12:00:00 AM EST [facility] ([facility]) 79955745 Multiple joint pain Multiple Joint Pain Problem 0 07/27/2020 12:00:00 AM EST [facility] ([facility]) 98759718 Multiple joint pain Multiple Joint Pain Problem 0 07/27/2020 12:00:00 AM EST [facility] ([facility]) Surgeries/Procedures Procedure Description Date Indications Data Source(s) OFFICE OUTPATIENT VISIT 25 MINUTES 05/28/2021 12:00:00 AM EST [facility] ([facility] ) ARTHROCENTESIS ASPIR&/INJECTION MAJOR JT/BURSA 021 12:00:00 AM EDT [facility] ([facility] ) RADIOLOGIC EXAM KNEE COMPLETE 4/MORE VIEWS 03/18/2021 12:00:00 AM EDT [facility] ([facility] ) OFFICE OUTPATIENT NEW 45 MINUTES 03/18/2021 12:00:00 A M EDT [facility] ([facility] ) OFFICE OUTPATIENT VISIT 25 MINUTES 03/15/2021 12:00:00 AM EDT [facility] ([facility] ) OFFICE OUTPATIENT VISIT 25 MINUTES 12/08/2020 12:00:00 AM EDT [facility] ([facility] ) MRI SPINAL CANAL CERVICAL W/O CONTRAST MATRL 1 12:00:00 AM EDT [facility] ([facility] ) MRI SPINAL CANAL CERVICAL W/O CONTRAST MATRL 1 12:00:00 AM EDT [facility] ([facility] ) Results ID Date Data Source [id number] 05/28/2021 10:45:00 AM EST [facility] Name Value Range Interpretation Code Description Data Stephanie rce(s) Supporting Document(s) SARS-CoV-2 (COVID-19) RNA [Presence] in Respiratory specimen by SKYE with probe detection Not Detected [facility] This lab was ordered by [facility] and reported by [employer] ID Date Data Source [id number] 05/28/2021 10:45:00 AM EST [facility] ([facility]) Name Value Range Interpretation Code Description Data Stephanie rce(s) Supporting Document(s) coronavirus 2019 nasopharygeal Coron avirus 2019 Nasopharygeal [place] ([facility]) ID Date Data Source [id number] 03/19/2021 11:18:00 AM EDT [facility]) Name Value Range Interpretation Code Description Data Stephanie rce(s) Supporting Document(s) total 25(oh) vitamin D 23.5 NG/mL 30.0-100.0 Below low normal T otal 25(Oh) Vitamin D [facility]) ID Date Data Source [id number] 03/19/2021 11:18:00 AM EDT [facility]) Name Value Range Interpretation Code Description Data Stephanie rce(s) Supporting Document(s) total 25(oh) vitamin D 23.5 NG/mL 30.0-100.0 Below low normal T otal 25(Oh) Vitamin D [facility]) ID Date Data Source [id number] 03/19/2021 11:18:00 AM EDT [facility]) Name Value Range Interpretation Code Description Data Stephanie rce(s) Supporting Document(s) total 25(oh) vitamin D 23.5 NG/mL 30.0-100.0 Below low normal T otal 25(Oh) Vitamin D [facility] Clinics) ID Date Data Source [id number] 02/15/2021 12:00:00 AM EDT [facility] Name Value Range Interpretation Code Description Data Stephanie rce(s) Supporting Document(s) SARS-CoV-2 (COVID-19) RNA [Presence] in Respiratory specimen by SKYE with probe detection negative negative Sars-cov-2 [facility]) ID Date Data Source [id number] 02/15/2021 12:00:00 AM EDT [facility] [place] Name Value Range Interpretation Code Description Data Stephanie rce(s) Supporting Document(s) ID Date Data Source [id number] 02/15/2021 12:00:00 AM EDT [place] ([facility]) Name Value Range Interpretation Code Description Data Stephanie rce(s) Supporting Document(s) SARS-CoV-2 (COVID-19) RNA [Presence] in Respiratory specimen by SKYE with probe detection negative negative Sars-cov-2 [place] ([facility]) ID Date Data Source [id number] 02/15/2021 12:00:00 AM EDT [place] ([facility]) Name Value Range Interpretation Code Description Data Stephanie rce(s) Supporting Document(s) ID Date Data Source [id number] 02/15/2021 12:00:00 AM EDT [place] ([facility]) Name Value Range Interpretation Code Description Data Stephanie rce(s) Supporting Document(s) SARS-CoV-2 (COVID-19) RNA [Presence] in Respiratory specimen by SKYE with probe detection negative negative Sars-cov-2 [place] ([facility]) ID Date Data Source [id number] 02/15/2021 12:00:00 AM EDT [place] ([facility]) Name Value Range Interpretation Code Description Data Stephanie rce(s) Supporting Document(s) ID Date Data Source [id number] 02/15/2021 12:00:00 AM EDT [facility] Name Value Range Interpretation Code Description Data Stephanie rce(s) Supporting Document(s) SARS-CoV-2 NEGATIVE [facility] This lab was ordered by [employer] [facility]-COVID19 and reported by [employer]. ID Date Data Source [id number] 02/15/2021 12:00:00 AM EDT [place] ([facility]) Name Value Range Interpretation Code Description Data Stephanie rce(s) Supporting Document(s) SARS-CoV-2 (COVID-19) RNA [Presence] in Respiratory specimen by SKYE with probe detection negative negative Sars-cov-2 [facility]) ID Date Data Source [id number] 02/15/2021 12:00:00 AM EDT [facility]) Name Value Range Interpretation Code Description Data Stephanie rce(s) Supporting Document(s) ID Date Data Source [id number] 12/13/2020 02:13:00 PM EDT [facility]) Name Value Range Interpretation Code Description Data Stephanie rce(s) Supporting Document(s) lyme disease IgG/IgM antibodie <0.91 0.00-0.90 Lyme Disease IgG/IgM Antibodie [facility]) lyme disease IgM Ab quantitati <0.80 0.00-0.79 Lyme Disease IgM Ab Quantitati [facility]) ID Date Data Source [id number] 12/13/2020 02:13:00 PM EDT [facility]) Name Value Range Interpretation Code Description Data Stephanie rce(s) Supporting Document(s) vitamin B12 level 1271 pg/mL 247-911 Above high normal Vitamin B12 Level [facility]) ID Date Data Source [id number] 12/13/2020 02:13:00 PM EDT [facility]) Name Value Range Interpretation Code Description Data Stephanie rce(s) Supporting Document(s) thyroxine (T4) 9.0 ug/dL 4.5-12.0 Thyroxine (T4) [place] ([facility]) T uptake 29 % 30-39 Below low normal T Uptake [place] ( [facility]) free thyroxine index 2.6 % 1.3-4.8 Free Thyroxine Index [place] ([facility]) thyroid stimulating hormone 1.360 uIU/mL 0.358-3.740 Thyroid Stimulating Hormone [place] ([facility]) ID Date Data Source [id number] 12/13/2020 02:13:00 PM EDT [place] ([facility]) Name Value Range Interpretation Code Description Data Stephanie rce(s) Supporting Document(s) magnesium level 2.3 mg/dL 1.8-2.4 Magnesium Level [place] ([facility]) ID Date Data Source [id number] 12/13/2020 02:13:00 PM EDT [place] ([facility]) Name Value Range Interpretation Code Description Data Stephanie rce(s) Supporting Document(s) blood urea nitrogen 19 mg/dL 7-18 Above high normal Blood Ure a Nitrogen [place] ([facility]) glucose, fasting 86 mg/dL 70-100 Glucose, Fasting AT [facility] ([facility]) creatinine for GFR 0.61 mg/dL 0.55-1.30 Creatinine for GF R [place] ([facility]) sodium level 139 mEq/L 136-145 Sodium Level [facility] ([facility]) glomerular filtration rate > 60.0 >60 Glomerula r Filtration Rate [place] ([facility]) potassium serum 5.0 mEq/L 3.5-5.1 Potassium Serum [place] ([facility]) carbon dioxide level 28 mEq/L 21-32 Carbon Dioxide Level [place] ([facility]) anion gap 5 mEq/L 8-16 Below low normal Anion Gap [facility] ( [facility]) chloride level 106 mEq/L 98-107 Chloride Level [facility] ([facility]) calcium level 8.9 mg/dL 8.5-10.1 Calcium Level [place] ( [facility]) ID Date Data Source [id number] 12/13/2020 02:13:00 PM EDT [facility]) Name Value Range Interpretation Code Description Data Stephanie rce(s) Supporting Document(s) amphetamines level urine positive negative Above high varun l Amphetamines Level Urine [facility] ([facility]) benzodiazepines urine negative negative Benzodiazepine s Urine [facility] ([facility]) barbiturates urine negative negative Barbiturates Urin e [facility] ([facility]) methadone urine negative negative Methadone Urine [place] ([facility]) cannabinoids urine negative negative Cannabinoids Urin e [facility] ([facility]) cocaine metabolite urine negative negative Cocaine Met abolite Urine [facility] ([facility]) phencyclidine urine negative negative Phencyclidine Ur ine [facility] ([facility]) opiates urine negative negative Opiates Urine [facility] ( [facility]) ID Date Data Source [id number] 12/13/2020 02:13:00 PM EDT [place] ([facility]) Name Value Range Interpretation Code Description Data Stephanie rce(s) Supporting Document(s) white blood count 5.9 10 4.0-10.0 White Blood Count [facility] ([facility]) red blood count 4.94 10 4.00-5.40 Red Blood Count [place] ([facility]) hemoglobin 14.2 g/dL 12.0-15.5 Hemoglobin [facility] ([facility]) hematocrit 43.7 % 36.0-47.0 Hematocrit [facility] ([facility]) mean corpuscular HGB conc 32.5 g/dL 32.0-36.5 Mean Corpu scular HGB Conc [place] ([facility]) mean corpuscular hemoglobin 28.7 pg 27.0-33.0 Mean Cor puscular Hemoglobin [place] ([facility]) mean corpuscular volume 88.5 fL 80.0-96.0 Mean Corpusc ular Volume [place] ([facility]) platelet count, automated 261 10 150-450 Platelet C ount, Automated [place] ([facility]) red cell distribution width 12.2 % 11.5-14.5 Red Cell Distribution Width [place] ([facility]) neutrophils % 59.5 % 36.0-66.0 Neutrophils % [place] ( [facility]) lymph % 28.3 % 24.0-44.0 Lymph % [place] ([facility]) eos % 4.5 % 0.0-3.0 Above high normal Eos % [facility] ([facility]) mono % 6.7 % 2.0-8.0 [place] % [facility] ([facility]) nucleated red blood cell % 0.0 % 0-0 Nucleated Red Blood Cell % [facility] ([facility]) baso % 0.7 % 0.0-1.0 Baso % [place] ([facility]) immature granulocyte % 0.3 % 0-3.0 Immature Gran ulocyte % [facility] ([facility]) lymph # 1.7 10 1.5-5.0 Lymph # [place] ([facility]) neutrophils # 3.5 10 1.5-8.5 Neutrophils # [place] ( [facility]) mono # 0.4 10 0.0-0.8 [place] # [facility] ([facility]) eos # 0.3 10 0.0-0.5 Eos # [facility] ([facility]) baso # 0.0 10 0.0-0.2 Baso # [facility] ([facility]) ID Date Data Source [id number] 12/13/2020 02:13:00 PM EDT [facility]) Name Value Range Interpretation Code Description Data Stephanie rce(s) Supporting Document(s) lyme disease IgM Ab quantitati <0.80 0.00-0.79 Lyme Disease IgM Ab Quantitati [place] ([facility]) lyme disease IgG/IgM antibodie <0.91 0.00-0.90 Lyme Disease IgG/IgM Antibodie [place] ([facility]) ID Date Data Source [id number] 12/13/2020 02:13:00 PM EDT [place] ([facility]) Name Value Range Interpretation Code Description Data Stephanie rce(s) Supporting Document(s) vitamin B12 level 1271 pg/mL 247-911 Above high normal Vitamin B12 Level [place] ([facility]) ID Date Data Source [id number] 12/13/2020 02:13:00 PM EDT [place] ([facility]) Name Value Range Interpretation Code Description Data Stephanie rce(s) Supporting Document(s) T uptake 29 % 30-39 Below low normal T Uptake [place] ( [facility]) thyroxine (T4) 9.0 ug/dL 4.5-12.0 Thyroxine (T4) [place] ([facility]) thyroid stimulating hormone 1.360 uIU/mL 0.358-3.740 Thyroid Stimulating Hormone [place] ([facility]) free thyroxine index 2.6 % 1.3-4.8 Free Thyroxine Index [place] ([facility]) ID Date Data Source [id number] 12/13/2020 02:13:00 PM EDT [facility]) Name Value Range Interpretation Code Description Data Stephanie rce(s) Supporting Document(s) magnesium level 2.3 mg/dL 1.8-2.4 [facility] ID Date Data Source [id number] 12/13/2020 02:13:00 PM EDT [facility]) Name Value Range Interpretation Code Description Data Stephanie rce(s) Supporting Document(s) glucose, fasting 86 mg/dL 70-100 Glucose, Fasting AT [facility]) blood urea nitrogen 19 mg/dL 7-18 Above high normal Blood Ure a Nitrogen [facility] ([facility]) creatinine for GFR 0.61 mg/dL 0.55-1.30 Creatinine for GF R [facility] ([facility]) sodium level 139 mEq/L 136-145 Sodium Level [facility] (No Pending sale to [facility]) glomerular filtration rate > 60.0 >60 Glomerula r Filtration Rate [facility] ([facility]) chloride level 106 mEq/L 98-107 Chloride Level [place] ([facility]) potassium serum 5.0 mEq/L 3.5-5.1 Potassium [facility] carbon dioxide level 28 mEq/L 21-32 Carbon Dioxide Level [facility] ([facility]) calcium level 8.9 mg/dL 8.5-10.1 Calcium Level [facility] ( [facility]) anion gap 5 mEq/L 8-16 Below low normal Anion Gap [facility] ( [facility]) ID Date Data Source [id number] 12/13/2020 02:13:00 PM EDT [place] ([facility]) Name Value Range Interpretation Code Description Data Stephanie rce(s) Supporting Document(s) amphetamines level urine positive negative Above high varun l Amphetamines Level Urine [facility] ([facility]) barbiturates urine negative negative Barbiturates Urin e [facility] ([facility]) cannabinoids urine negative negative Cannabinoids Urin e [facility] ([facility]) benzodiazepines urine negative negative Benzodiazepine s Urine [facility] ([facility]) methadone urine negative negative Methadone Urine [place] ([facility]) cocaine metabolite urine negative negative Cocaine Met abolite Urine [facility] ([facility]) opiates urine negative negative Opiates Urine [facility] ( [facility]) phencyclidine urine negative negative Phencyclidine Ur ine [facility] ([facility]) ID Date Data Source [id number] 12/13/2020 02:13:00 PM EDT [facility] ([facility]) Name Value Range Interpretation Code Description Data Stephanie rce(s) Supporting Document(s) white blood count 5.9 10 4.0-10.0 White Blood Count [facility] ([facility]) hemoglobin 14.2 g/dL 12.0-15.5 Hemoglobin [facility] ([facility]) red blood count 4.94 10 4.00-5.40 Red Blood Count [place] [place] ([facility]) mean corpuscular volume 88.5 fL 80.0-96.0 Mean Corpusc ular Volume [facility] ([facility]) hematocrit 43.7 % 36.0-47.0 Hematocrit [facility] ([facility]) mean corpuscular hemoglobin 28.7 pg 27.0-33.0 Mean Cor puscular Hemoglobin [facility] ([facility]) mean corpuscular HGB conc 32.5 g/dL 32.0-36.5 Mean Corpu scular HGB Conc [place] ([facility]) red cell distribution width 12.2 % 11.5-14.5 Red Cell Distribution Width [facility] ([facility]) platelet count, automated 261 10 150-450 Platelet C ount, Automated [facility] ([facility]) neutrophils % 59.5 % 36.0-66.0 Neutrophils % [place] ( [facility]) lymph % 28.3 % 24.0-44.0 Lymph % [place] ([facility]) mono % 6.7 % 2.0-8.0 [place] % [place] ([facility]) eos % 4.5 % 0.0-3.0 Above high normal Eos % [place] ([facility]) baso % 0.7 % 0.0-1.0 Baso % [place] ([facility]) immature granulocyte % 0.3 % 0-3.0 Immature Gran ulocyte % [place] ([facility]) nucleated red blood cell % 0.0 % 0-0 Nucleated Red Blood Cell % [place] ([facility]) neutrophils # 3.5 10 1.5-8.5 Neutrophils # [place] ( [facility]) lymph # 1.7 10 1.5-5.0 Lymph # [place] ([facility]) mono # 0.4 10 0.0-0.8 [place] # [facility] ([facility]) eos # 0.3 10 0.0-0.5 Eos # [place] ([facility]) baso # 0.0 10 0.0-0.2 Baso # [place] ([facility]) ID Date Data Source [id number] 12/13/2020 02:13:00 PM EDT [place] ([facility]) Name Value Range Interpretation Code Description Data Stephanie rce(s) Supporting Document(s) lyme disease IgG/IgM antibodie <0.91 0.00-0.90 Lyme Disease IgG/IgM Antibodie [place] ([facility]) lyme disease IgM Ab quantitati <0.80 0.00-0.79 Lyme Disease IgM Ab Quantitati [place] ([facility]) ID Date Data Source [id number] 12/13/2020 02:13:00 PM EDT [place] ([facility]) Name Value Range Interpretation Code Description Data Stephanie rce(s) Supporting Document(s) vitamin B12 level 1271 pg/mL 247-911 Above high normal Vitamin B12 Level [facility] ([facility]) ID Date Data Source [id number] 12/13/2020 02:13:00 PM EDT [place] ([facility]) Name Value Range Interpretation Code Description Data Stephanie rce(s) Supporting Document(s) T uptake 29 % 30-39 Below low normal T Uptake [facility] ( [facility]) thyroxine (T4) 9.0 ug/dL 4.5-12.0 Thyroxine (T4) [facility] ([facility]) free thyroxine index 2.6 % 1.3-4.8 Free Thyroxine Index [facility] ([facility]) thyroid stimulating hormone 1.360 uIU/mL 0.358-3.740 Thyroid Stimulating Hormone [facility] ([facility]) ID Date Data Source [id number] 12/13[facility]2020 [facility] Name Value Range Interpretation Code Description Data Stephanie rce(s) Supporting Document(s) magnesium level 2.3 mg/dL 1.8-2.4 [facility] ID Date Data Source [id number] 12/13/2020 02:13:00 [facility] Name Value Range Interpretation Code Description Data Stephanie rce(s) Supporting Document(s) blood urea nitrogen 19 mg/dL 7-18 Above high normal Blood Ure a Nitrogen [facility] ([facility]) glucose, fasting 86 mg/dL 70-100 Glucose, Fasting [facility] ([facility]) glomerular filtration rate > 60.0 >60 Glomer[place] r Filtration Rate [facility] ([facility]) creatinine for GFR 0.61 mg/dL 0.55-1.30 Creatinine for GF R [facility] ([facility]) chloride level 106 mEq/L 98-107 Chloride Level [facility] ([facility]) sodium level 139 mEq/L 136-145 Sodium Level [facility] ([facility]) potassium serum 5.0 mEq/L 3.5-5.1 Potassium Serum [facility] ([facility]) anion gap 5 mEq/L 8-16 Below low normal Anion Gap [facility] ( [facility]) calcium level 8.9 mg/dL 8.5-10.1 Calcium Level [facility] ( [facility]) carbon dioxide level 28 mEq/L 21-32 Carbon Dioxide Level [facility] ([facility]) ID Date Data Source [id number] 12/13/2020 02:13:00 PM EDT [facility] ([facility]) Name Value Range Interpretation Code Description Data Stephanie rce(s) Supporting Document(s) amphetamines level urine positive negative Above high varun l Amphetamines Level Urine [facility] ([facility]) barbiturates urine negative negative Barbiturates Urin e [facility] ([facility]) benzodiazepines urine negative negative Benzodiazepine s Urine [facility] ([facility]) cocaine metabolite urine negative negative Cocaine Met abolite Urine [facility] ([facility]) methadone urine negative negative Methadone Urine [facility] [place] ([facility]) cannabinoids urine negative negative Cannabinoids Urin e [facility] ([facility]) opiates urine negative negative Opiates Urine [facility] ( [facility]) phencyclidine urine negative negative Phencyclidine Ur ine [place] ([facility]) ID Date Data Source [id number] 12/13/2020 02:13:00 PM EDT [place] ([facility]) Name Value Range Interpretation Code Description Data Stephanie rce(s) Supporting Document(s) white blood count 5.9 10 4.0-10.0 White Blood Count [facility] ([facility]) red blood count 4.94 10 4.00-5.40 Red Blood Count [facility] [place] ([facility]) hemoglobin 14.2 g/dL 12.0-15.5 Hemoglobin [facility] ([facility]) mean corpuscular volume 88.5 fL 80.0-96.0 Mean Corpusc ular Volume [facility] ([facility]) hematocrit 43.7 % 36.0-47.0 Hematocrit [facility] ([facility]) mean corpuscular hemoglobin 28.7 pg 27.0-33.0 Mean Cor puscular Hemoglobin [facility] ([facility]) mean corpuscular HGB conc 32.5 g/dL 32.0-36.5 Mean Corpu scular HGB Conc [facility] ([facility]) red cell distribution width 12.2 % 11.5-14.5 Red Cell Distribution Width [facility] ([facility]) lymph % 28.3 % 24.0-44.0 Lymph % [facility] ([facility]) platelet count, automated 261 10 150-450 Platelet C ount, Automated [facility] ([facility]) neutrophils % 59.5 % 36.0-66.0 Neutrophils % [facility] ( [facility]) eos % 4.5 % 0.0-3.0 Above high normal Eos % [facility] ([facility]) mono % 6.7 % 2.0-8.0 [place] % [facility] ([facility]) baso % 0.7 % 0.0-1.0 Baso % [facility] ([facility]) nucleated red blood cell % 0.0 % 0-0 Nucleated Red Blood Cell % [facility] ([facility]) immature granulocyte % 0.3 % 0-3.0 Immature Gran ulocyte % [facility] ([facility]) neutrophils # 3.5 10 1.5-8.5 Neutrophils # [facility] ( [facility]) mono # 0.4 10 0.0-0.8 [place] # [facility] ([facility]) lymph # 1.7 10 1.5-5.0 Lymph # [facility] ([facility]) eos # 0.3 10 0.0-0.5 Eos # [facility] ([facility]) baso # 0.0 10 0.0-0.2 Baso # [facility] ([facility]) ID Date Data Source [id number] 12/13/2020 02:13:00 PM EDT [facility] ([facility]) Name Value Range Interpretation Code Description Data Stephanie rce(s) Supporting Document(s) lyme disease IgM Ab quantitati <0.80 0.00-0.79 Lyme Disease IgM Ab Quantitati [facility] ([facility]) lyme disease IgG/IgM antibodie <0.91 0.00-0.90 Lyme Disease IgG/IgM Antibodie [place] ([facility]) ID Date Data Source [id number] 12/13/2020 02:13:00 PM EDT [facility] ([facility]) Name Value Range Interpretation Code Description Data Stephanie rce(s) Supporting Document(s) vitamin B12 level 1271 pg/mL 247-911 Above high normal Vitamin B12 Level [place] ([facility]) ID Date Data Source [id number] 12/13/2020 02:13:00 PM EDT [place] ([facility]) Name Value Range Interpretation Code Description Data Stephanie rce(s) Supporting Document(s) thyroxine (T4) 9.0 ug/dL 4.5-12.0 Thyroxine (T4) [facility] ([facility]) free thyroxine index 2.6 % 1.3-4.8 Free Thyroxine Index [facility] ([facility]) T uptake 29 % 30-39 Below low normal T Uptake [facility] ( [facility]) thyroid stimulating hormone 1.360 uIU/mL 0.358-3.740 Thyroid Stimulating Hormone [facility] ([facility]) ID Date Data Source [id number] 12/13/2020 02:13:00 PM EDT [facility] ([facility]) Name Value Range Interpretation Code Description Data Stephanie rce(s) Supporting Document(s) magnesium level 2.3 mg/dL 1.8-2.4 Magnesium Level [facility] ([facility]) ID Date Data Source [id number] 12/13/2020 02:13:00 PM EDT [facility] ([facility]) Name Value Range Interpretation Code Description Data Stephanie rce(s) Supporting Document(s) glucose, fasting 86 mg/dL 70-100 Glucose, Fasting AT [facility] ([facility]) blood urea nitrogen 19 mg/dL 7-18 Above high normal Blood Ure a Nitrogen [facility] ([facility]) sodium level 139 mEq/L 136-145 Sodium Level [facility] (No Pending sale to [facility]) creatinine for GFR 0.61 mg/dL 0.55-1.30 Creatinine for GF R [facility] ([facility]) glomerular filtration rate > 60.0 >60 [place] r Filtration Rate [facility] ([facility]) anion gap 5 mEq/L 8-16 Below low normal Anion Gap [facility] ( [facility]) chloride level 106 mEq/L 98-107 Chloride Level [facility] ([facility]) potassium serum 5.0 mEq/L 3.5-5.1 Potassium Serum [facility] ([facility]) carbon dioxide level 28 mEq/L 21-32 Carbon Dioxide Level [facility] ([facility]) calcium level 8.9 mg/dL 8.5-10.1 Calcium Level [facility] ( [facility]) ID Date Data Source [id number] 12/13/2020 02:13:00 PM EDT [facility] ([facility]) Name Value Range Interpretation Code Description Data Stephanie rce(s) Supporting Document(s) benzodiazepines urine negative negative Benzodiazepine s Urine AP[facility] ([facility]) barbiturates urine negative negative Barbiturates Urin e APPLE ([facility]) amphetamines level urine positive negative Above high varun l Amphetamines Level Urine APPLE ([facility]) methadone urine negative negative Methadone Urine ATHE NA ([facility]) cocaine metabolite urine negative negative Cocaine Met abolite Urine APPLE ([facility]) cannabinoids urine negative negative Cannabinoids Urin e APPLE ([facility]) opiates urine negative negative Opiates Urine APPLE ( [facility]) phencyclidine urine negative negative Phencyclidine Ur ine APPLE ([facility]) ID Date Data Source [id number] 12/13/2020 02:13:00 PM EDT APPLE ([facility]) Name Value Range Interpretation Code Description Data Stephanie rce(s) Supporting Document(s) white blood count 5.9 10 4.0-10.0 White Blood Count APPLE ([facility]) hemoglobin 14.2 g/dL 12.0-15.5 Hemoglobin APPLE ([facility]) red blood count 4.94 10 4.00-5.40 Red Blood Count ATHE NA ([facility]) hematocrit 43.7 % 36.0-47.0 Hematocrit APPLE ([facility]) mean corpuscular hemoglobin 28.7 pg 27.0-33.0 Mean Cor puscular Hemoglobin APPLE ([facility]) mean corpuscular volume 88.5 fL 80.0-96.0 Mean Corpusc ular Volume APPLE ([facility]) mean corpuscular HGB conc 32.5 g/dL 32.0-36.5 Mean Corpu scular HGB Conc APPLE ([facility]) red cell distribution width 12.2 % 11.5-14.5 Red Cell Distribution Width APPLE ([facility]) platelet count, automated 261 10 150-450 Platelet C ount, Automated APPLE ([facility]) mono % 6.7 % 2.0-8.0 [place] % APPLE ([facility]) lymph % 28.3 % 24.0-44.0 Lymph % APPLE ([facility]) neutrophils % 59.5 % 36.0-66.0 Neutrophils % APPLE ( [facility]) eos % 4.5 % 0.0-3.0 Above high normal Eos % APPLE ([facility]) immature granulocyte % 0.3 % 0-3.0 Immature Gran ulocyte % APPLE ([facility]) baso % 0.7 % 0.0-1.0 Baso % APPLE ([facility]) nucleated red blood cell % 0.0 % 0-0 Nucleated Red Blood Cell % APPLE ([facility]) lymph # 1.7 10 1.5-5.0 Lymph # AP[facility] ([facility]) neutrophils # 3.5 10 1.5-8.5 Neutrophils # [place] ( [facility]) eos # 0.3 10 0.0-0.5 Eos # APPLE ([facility]) mono # 0.4 10 0.0-0.8 [place] # APPLE ([facility]) baso # 0.0 10 0.0-0.2 Baso # [place] ([facility]) ID Date Data Source [id number] 12/13/2020 02:13:00 PM EDT [facility]) Name Value Range Interpretation Code Description Data Stephanie rce(s) Supporting Document(s) lyme disease IgM Ab quantitati <0.80 0.00-0.79 Lyme Disease IgM Ab Quantitati [place] ([facility]) lyme disease IgG/IgM antibodie <0.91 0.00-0.90 Lyme Disease IgG/IgM Antibodie [place] ([facility]) ID Date Data Source [id number] 12/13/2020 02:13:00 PM EDT [facility]) Name Value Range Interpretation Code Description Data Stephanie rce(s) Supporting Document(s) vitamin B12 level 1271 pg/mL 247-911 Above high normal Vitamin B12 Level [facility]) ID Date Data Source [id number] 12/13/2020 02:13:00 PM EDT [facility]) Name Value Range Interpretation Code Description Data Stephanie rce(s) Supporting Document(s) free thyroxine index 2.6 % 1.3-4.8 Free Thyroxine Index APPLE ([facility]) thyroxine (T4) 9.0 ug/dL 4.5-12.0 Thyroxine (T4) AP[facility] ([facility]) T uptake 29 % 30-39 Below low normal T Uptake APPLE ( [facility]) thyroid stimulating hormone 1.360 uIU/mL 0.358-3.740 Thyroid Stimulating Hormone AP[facility] ([facility]) ID Date Data Source [id number] 12/13/2020 02:13:00 PM EDT [facility]) Name Value Range Interpretation Code Description Data Stephanie rce(s) Supporting Document(s) magnesium level 2.3 mg/dL 1.8-2.4 [facility] Date Data Source [id number] 12/13/2020 02:13:00 PM EDT [facility]) Name Value Range Interpretation Code Description Data Stephanie rce(s) Supporting Document(s) glucose, fasting 86 mg/dL 70-100 Glucose, Fasting AT [facility]) blood urea nitrogen 19 mg/dL 7-18 Above high normal Blood Ure a Nitrogen AP[facility] ([facility]) creatinine for GFR 0.61 mg/dL 0.55-1.30 Creatinine for GF R AP[facility] ([facility]) glomerular filtration rate > 60.0 >60 [place] r Filtration Rate AP[facility] ([facility]) sodium level 139 mEq/L 136-145 Sodium Level APPLE ([facility]) chloride level 106 mEq/L 98-107 Chloride Level APPLE ([facility]) potassium serum 5.0 mEq/L 3.5-5.1 Potassium Serum ATHE NA ([facility]) carbon dioxide level 28 mEq/L 21-32 Carbon Dioxide Level APPLE ([facility]) anion gap 5 mEq/L 8-16 Below low normal Anion Gap [place] ( [facility]) calcium level 8.9 mg/dL 8.5-10.1 Calcium Level APPLE ( [facility]) ID Date Data Source [id number] 12/13/2020 02:13:00 PM EDT APPLE ([facility]) Name Value Range Interpretation Code Description Data Stephanie rce(s) Supporting Document(s) amphetamines level urine positive negative Above high varun l Amphetamines Level Urine APPLE ([facility]) benzodiazepines urine negative negative Benzodiazepine s Urine APPLE ([facility]) barbiturates urine negative negative Barbiturates Urin e APPLE ([facility]) cocaine metabolite urine negative negative Cocaine Met abolite Urine APPLE ([facility]) methadone urine negative negative Methadone Urine ATHE ([facility]) cannabinoids urine negative negative Cannabinoids Urin e APPLE ([facility]) phencyclidine urine negative negative Phencyclidine Ur ine APPLE ([facility]) opiates urine negative negative Opiates Urine APPLE ( [facility]) ID Date Data Source [id number] 12/13/2020 02:13:00 PM EDT APPLE ([facility]) Name Value Range Interpretation Code Description Data Stephanie rce(s) Supporting Document(s) white blood count 5.9 10 4.0-10.0 White Blood Count AP[facility] ([facility]) red blood count 4.94 10 4.00-5.40 Red Blood Count ATHE NA ([facility]) hemoglobin 14.2 g/dL 12.0-15.5 Hemoglobin APPLE ([facility]) hematocrit 43.7 % 36.0-47.0 Hematocrit AP[facility] ([facility]) mean corpuscular hemoglobin 28.7 pg 27.0-33.0 Mean Cor puscular Hemoglobin APPLE ([facility]) mean corpuscular volume 88.5 fL 80.0-96.0 Mean Corpusc ular Volume APPLE ([facility]) red cell distribution width 12.2 % 11.5-14.5 Red Cell Distribution Width APPLE ([facility]) mean corpuscular HGB conc 32.5 g/dL 32.0-36.5 Mean Corpu scular HGB Conc APPLE ([facility]) lymph % 28.3 % 24.0-44.0 Lymph % [place] ([facility]) platelet count, automated 261 10 150-450 Platelet C ount, Automated APPLE ([facility]) neutrophils % 59.5 % 36.0-66.0 Neutrophils % [place] ( [facility]) eos % 4.5 % 0.0-3.0 Above high normal Eos % [place] ([facility]) mono % 6.7 % 2.0-8.0 [place] % [place] ([facility]) nucleated red blood cell % 0.0 % 0-0 Nucleated Red Blood Cell % [place] ([facility]) baso % 0.7 % 0.0-1.0 Baso % [place] ([facility]) immature granulocyte % 0.3 % 0-3.0 Immature Gran ulocyte % [place] ([facility]) lymph # 1.7 10 1.5-5.0 Lymph # [place] ([facility]) neutrophils # 3.5 10 1.5-8.5 Neutrophils # [place] ( [facility]) mono # 0.4 10 0.0-0.8 [place] # [place] ([facility]) eos # 0.3 10 0.0-0.5 Eos # [place] ([facility]) baso # 0.0 10 0.0-0.2 Baso # [place] ([facility]) ID Date Data Source [id number] 11/10/2020 03:17:00 PM EDT [place] ([facility]) Name Value Range Interpretation Code Description Data Stephanie rce(s) Supporting Document(s) C reactive protein quantitativ 0.66 mg/dL 0.00-0.30 Above high normal C Reactive Protein Quantitativ [place] ([facility]) ID Date Data Source [id number] 11/10/2020 03:17:00 PM EDT APPLE ([facility]) Name Value Range Interpretation Code Description Data Stephanie rce(s) Supporting Document(s) total 25(oh) vitamin D 25.3 NG/mL 30.0-100.0 Below low normal T otal 25(Oh) Vitamin D AP[facility] ([facility]) ID Date Data Source [id number] 11/10/2020 03:17:00 PM EDT APPLE ([facility]) Name Value Range Interpretation Code Description Data Stephanie rce(s) Supporting Document(s) vitamin B12 level 500 pg/mL 247-911 [facility] Date Data Source [id number] 11/10/2020 03:17:00 [facility] Name Value Range Interpretation Code Description Data Stephanie rce(s) Supporting Document(s) iron (fe) 73 ug/dL 50-170 Iron (Fe) [facility] ([facility]) ID Date Data Source [id number] 11/10/2020 03:17:00 [facility] Name Value Range Interpretation Code Description Data Stephanie rce(s) Supporting Document(s) magnesium level 2.1 mg/dL 1.8-2.4 Magnesium Level ATHE ([facility]) ID Date Data Source [id number] 11/10/2020 03:17:00 PM EDT APPLE ([facility]) Name Value Range Interpretation Code Description Data Stephanie rce(s) Supporting Document(s) CPK creatine phosphokinase 533 U/L 26-192 Above high nor mal CPK [facility]ine [facility] ID Date Data Source [id number] 11/10/2020 03:17:00 [facility] Name Value Range Interpretation Code Description Data Stephanie rce(s) Supporting Document(s) phosphorus level 2.7 mg/dL 2.5-4.9 Phosphorus Level AT [facility] ([facility]) ID Date Data Source [id number] 11/10/2020 03:17:00 PM EDT APPLE ([facility]) Name Value Range Interpretation Code Description Data Stephanie rce(s) Supporting Document(s) C reactive protein quantitativ 0.66 mg/dL 0.00-0.30 Above high normal C Reactive Protein Quantitativ [place] ([facility]) ID Date Data Source [id number] 11/10/2020 03:17:00 PM EDT [facility]) Name Value Range Interpretation Code Description Data Stephanie rce(s) Supporting Document(s) total 25(oh) vitamin D 25.3 NG/mL 30.0-100.0 Below low normal T otal 25(Oh) Vitamin D [facility]) ID Date Data Source [id number] 11/10/2020 03:17:00 PM EDT [facility]) Name Value Range Interpretation Code Description Data Stephanie rce(s) Supporting Document(s) vitamin B12 level 500 pg/mL 247-911 [facility] ID Date Data Source [id number] 11/10/2020 03:17:00 PM EDT [facility]) Name Value Range Interpretation Code Description Data Stephanie rce(s) Supporting Document(s) iron (fe) 73 ug/dL 50-170 [facility] (Fe) [facility] ID Date Data Source [id number] 11/10/2020 03:17:00 PM EDT [facility]) Name Value Range Interpretation Code Description Data Stephanie rce(s) Supporting Document(s) magnesium level 2.1 mg/dL 1.8-2.4 Magnesium Level ATHE [facility]) ID Date Data Source [id number] 11/10/2020 03:17:00 PM EDT APPLE ([facility]) Name Value Range Interpretation Code Description Data Stephanie rce(s) Supporting Document(s) CPK creatine phosphokinase 533 U/L 26-192 Above high nor mal CPK Creatine Phosphokinase [facility]) ID Date Data Source [id number] 11/10/2020 03:17:00 PM EDT [facility]) Name Value Range Interpretation Code Description Data Stephanie rce(s) Supporting Document(s) phosphorus level 2.7 mg/dL 2.5-4.9 Phosphorus Level AT [facility]) ID Date Data Source [id number] 11/10/2020 03:17:00 PM EDT [facility]) Name Value Range Interpretation Code Description Data Stephanie rce(s) Supporting Document(s) C reactive protein quantitativ 0.66 mg/dL 0.00-0.30 Above high normal C Reactive Protein Quantitativ [facility]) ID Date Data Source [id number] 11/10/2020 03:17:00 PM EDT [facility]) Name Value Range Interpretation Code Description Data Stephanie rce(s) Supporting Document(s) total 25(oh) vitamin D 25.3 NG/mL 30.0-100.0 Below low normal T otal 25(Oh) Vitamin D [facility]) ID Date Data Source [id number] 11/10/2020 03:17:00 PM EDT [facility]) Name Value Range Interpretation Code Description Data Stephanie rce(s) Supporting Document(s) vitamin B12 level 500 pg/mL 775-911 Vitamin B12 Level AP[facility] ([facility]) ID Date Data Source [id number] 11/10/2020 03:17[facility]00 [facility] Name Value Range Interpretation Code Description Data Stephanie rce(s) Supporting Document(s) iron (fe) 73 ug/dL 50-170 Iron (Fe) AP[facility] ([facility]) ID Date Data Source [id number] 11/10/2020 03:17:00 [facility] Name Value Range Interpretation Code Description Data Stephanie rce(s) Supporting Document(s) magnesium level 2.1 mg/dL 1.8-2.4 [facility] ID Date Data Source [id number] 11/10/2020 03:17:00 PM EDT [facility]) Name Value Range Interpretation Code Description Data Stephanie rce(s) Supporting Document(s) CPK creatine phosphokinase 533 U/L 26-192 Above high nor mal CPK Creatine Phosphokinase [facility]) ID Date Data Source [id number] 11/10/2020 03:17:00 PM EDT [facility]) Name Value Range Interpretation Code Description Data Stephanie rce(s) Supporting Document(s) phosphorus level 2.7 mg/dL 2.5-4.9 Phosphorus Level AT [facility] ([facility]) ID Date Data Source [id number] 11/10/2020 03:17:00 PM EDT [facility]) Name Value Range Interpretation Code Description Data Stephanie rce(s) Supporting Document(s) C reactive protein quantitativ 0.66 mg/dL 0.00-0.30 Above high normal C Reactive Protein Quantitativ AP[facility] ([facility]) ID Date Data Source [id number] 11/10/2020 03:17:00 PM EDT APPLE ([facility]) Name Value Range Interpretation Code Description Data Stephanie rce(s) Supporting Document(s) total 25(oh) vitamin D 25.3 NG/mL 30.0-100.0 Below low normal T otal 25(Oh) Vitamin D AP[facility] ([facility]) ID Date Data Source [id number] 11/10/2020 03:17:00 [facility] Name Value Range Interpretation Code Description Data Stephanie rce(s) Supporting Document(s) vitamin B12 level 500 pg/mL 247-911 [facility] ID Date Data Source [id number] 11/10/2020 03:17:00 [facility] Name Value Range Interpretation Code Description Data Stephanie rce(s) Supporting Document(s) iron (fe) 73 ug/dL 50-170 Iron (Fe) [facility] ([facility]) ID Date Data Source [id number] 11/10/2020 03:17:00 PM EDT APPLE ([facility]) Name Value Range Interpretation Code Description Data Stephanie rce(s) Supporting Document(s) magnesium level 2.1 mg/dL 1.8-2.4 Magnesium Level ATHE ([facility]) ID Date Data Source [id number] 11/10/2020 03:17:00 [facility] Name Value Range Interpretation Code Description Data Stephanie rce(s) Supporting Document(s) CPK creatine phosphokinase 533 U/L 26-192 Above high nor mal CPK Creatine Phosphokinase AP[facility] ([facility]) ID Date Data Source [id number] 11/10/2020 03:17:00 PM EDT [facility]) Name Value Range Interpretation Code Description Data Stephanie rce(s) Supporting Document(s) phosphorus level 2.7 mg/dL 2.5-4.9 Phosphorus Level AT [facility] ([facility]) ID Date Data Source [id number] 11/10/2020 03:17:00 PM EDT [facility]) Name Value Range Interpretation Code Description Data Stephanie rce(s) Supporting Document(s) C reactive protein quantitativ 0.66 mg/dL 0.00-0.30 Above high normal C Reactive Protein Quantitativ [facility]) ID Date Data Source [id number] 11/10/2020 03:17:00 PM EDT [facility]) Name Value Range Interpretation Code Description Data Stephanie rce(s) Supporting Document(s) total 25(oh) vitamin D 25.3 NG/mL 30.0-100.0 Below low normal T otal 25(Oh) Vitamin D [facility]) ID Date Data Source [id number] 11/10/2020 03:17:00 PM EDT [facility]) Name Value Range Interpretation Code Description Data Stephanie rce(s) Supporting Document(s) vitamin B12 level 500 pg/mL 247-911 Vitamin B12 Level [place] ([facility]) ID Date Data Source [id number] 11/10/2020 03:17:00 PM EDT [facility]) Name Value Range Interpretation Code Description Data Stephanie rce(s) Supporting Document(s) iron (fe) 73 ug/dL 50-170 [facility] ID Date Data Source [id number] 11/10/2020 03:17:00 PM EDT APPLE ([facility]) Name Value Range Interpretation Code Description Data Stephanie rce(s) Supporting Document(s) magnesium level 2.1 mg/dL 1.8-2.4 Magnesium Level ATHE ([facility]) ID Date Data Source [id number] 11/10/2020 03:17:00 PM EDT APPLE ([facility]) Name Value Range Interpretation Code Description Data Stephanie rce(s) Supporting Document(s) CPK creatine phosphokinase 533 U/L 26-192 Above high nor mal CPK Creatine Phosphokinase [facility]) ID Date Data Source [id number] 11/10/2020 03:17:00 PM EDT [facility]) Name Value Range Interpretation Code Description Data Stephanie rce(s) Supporting Document(s) phosphorus level 2.7 mg/dL 2.5-4.9 Phosphorus Level AT [facility] ([facility]) ID Date Data Source [id number] 11/10/2020 03:17:00 PM EDT [place] ([facility]) Name Value Range Interpretation Code Description Data Stephanie rce(s) Supporting Document(s) C reactive protein quantitativ 0.66 mg/dL 0.00-0.30 Above high normal C Reactive Protein Quantitativ [facility] ([facility]) ID Date Data Source [id number] 11/10/2020 03:17:00 PM EDT [facility]) Name Value Range Interpretation Code Description Data Stephanie rce(s) Supporting Document(s) total 25(oh) vitamin D 25.3 NG/mL 30.0-100.0 Below low normal T otal 25(Oh) Vitamin D [facility]) ID Date Data Source [id number] 11/10/2020 03:17:00 PM EDT AP[facility] ([facility]) Name Value Range Interpretation Code Description Data Stephanie rce(s) Supporting Document(s) vitamin B12 level 500 pg/mL 247-911 Vitamin B12 Level [facility] ([facility]) ID Date Data Source [id number] 11/10/2020 03:17:00 PM EDT AP[facility] ([facility]) Name Value Range Interpretation Code Description Data Stephanie rce(s) Supporting Document(s) iron (fe) 73 ug/dL 50-170 Iron (Fe) [facility] ([facility]) ID Date Data Source [id number] 11/10/2020 03:17:00 PM EDT AP[facility] ([facility]) Name Value Range Interpretation Code Description Data Stephanie rce(s) Supporting Document(s) magnesium level 2.1 mg/dL 1.8-2.4 [facility] ID Date Data Source [id number] 11/10/2020 03:17:00 PM EDT APPLE ([facility]) Name Value Range Interpretation Code Description Data Stephanie rce(s) Supporting Document(s) CPK creatine phosphokinase 533 U/L 26-192 Above high nor mal CPK Creatine Phosphokinase AP[facility] ([facility]) ID Date Data Source [id number] 11/10/2020 03:17:00 PM EDT AP[facility] ([facility]) Name Value Range Interpretation Code Description Data Stephanie rce(s) Supporting Document(s) phosphorus level 2.7 mg/dL 2.5-4.9 Phosphorus Level AT [facility] ([facility]) ID Date Data Source VITAMIN D [id number]-HYDROXY 11/10/2020 12:00:00 AM EDT eCW1 ([facility]) Name Value Range Interpretation Code Description Data Stephanie rce(s) Supporting Document(s) 25.3 30.0-100.0 TOTAL 25(OH) VITAMIN D eC W1 ([facility]) ID Date Data Source C REACTIVE PROTEIN QUANTITATIV (At [facility]) 11/10/2020 12:00 :00 AM EDT eCW1 ([facility]) Name Value Range Interpretation Code Description Data Stephanie rce(s) Supporting Document(s) 0.66 0.00-0.30 C REACTIVE PROTEIN QUANTI TATIV eCW1 ([facility]) ID Date Data Source CPK CREATINE PHOSPHOKINASE 11/10/2020 12:00:00 AM EDT eCW1 ( [facility]) Name Value Range Interpretation Code Description Data Stephanie rce(s) Supporting Document(s) 531 26-401 CPK CREATINE PHOSPHOKINASE eCW 1 ([facility]) ID Date Data Source [facility] Wrist, complete 11/10/2020 12:00:00 AM EDT eCW1 ([facility]) Name Value Range Interpretation Code Description Data Stephanie rce(s) Supporting Document(s) [facility] Wrist, complete eCW1 ([facility]) ID Date Data Source [facility] Knee, complete 11/10/2020 12:00:00 AM EDT eCW1 ([facility]) Name Value Range Interpretation Code Description Data Stephanie rce(s) Supporting Document(s) [facility] Knee, complete eCW1 ([facility]) ID Date Data Source [facility] HIPS BILAT 2 VIEW W/AP PELVIS 11/10/2020 12:00:00 AM EDT eCW1 ([facility]) Name Value Range Interpretation Code Description Data Stephanie rce(s) Supporting Document(s) [facility] HIPS BILAT 2 VIEW W/AP PEL VIS eCW1 ([facility]) ID Date Data Source [facility] Hand, complete 11/10/2020 12:00:00 AM EDT eCW1 ([facility]) Name Value Range Interpretation Code Description Data Stephanie rce(s) Supporting Document(s) [facility] Hand, complete eCW1 ([facility]) ID Date Data Source VITAMIN B12 LEVEL 11/10/2020 12:00:00 AM EDT eCW1 ([facility]) Name Value Range Interpretation Code Description Data Stephanie rce(s) Supporting Document(s) 500 264-154 VITAMIN B12 LEVEL eCW1 ([facility]) ID Date Data Source PHOSPHOROUS LEVEL 11/10/2020 12:00:00 AM EDT eCW1 ([facility]) Name Value Range Interpretation Code Description Data Stephanie rce(s) Supporting Document(s) 2.7 2.5-4.9 PHOSPHORUS LEVEL eCW1 ([facility]) ID Date Data Source MAGNESIUM LEVEL 11/10/2020 12:00:00 AM EDT eCW1 ([facility]) Name Value Range Interpretation Code Description Data Stephanie rce(s) Supporting Document(s) 2.1 1.8-2.4 MAGNESIUM LEVEL eCW1 ([facility]) ID Date Data Source IRON (FE) 11/10/2020 12:00:00 AM EDT eCW1 ([facility]) Name Value Range Interpretation Code Description Data Stephanie rce(s) Supporting Document(s) 73 [id number] IRON (FE) eCW1 ([facility]) ID Date Data Source [id number] 08/10/2020 09:40:00 AM EST [facility]) Name Value Range Interpretation Code Description Data Stephanie rce(s) Supporting Document(s) lyme disease IgM Ab quantitati <0.80 0.00-0.79 Lyme Disease IgM Ab Quantitati [facility]) lyme disease IgG/IgM antibodie <0.91 0.00-0.90 Lyme Disease IgG/IgM Antibodie [facility]) ID Date Data Source [id number] 08/10/2020 09:40:00 AM EST [facility]) Name Value Range Interpretation Code Description Data Stephanie rce(s) Supporting Document(s) erythrocyte sedimentation rate 9 mm/HR 0-20 Eryth rocyte Sedimentation Rate [facility]) ID Date Data Source [id number] 08/10/2020 09:40:00 AM EST APPLE ([facility]) Name Value Range Interpretation Code Description Data Stephanie rce(s) Supporting Document(s) white blood count 6.2 10 4.0-10.0 White Blood Count APPLE ([facility]) red blood count 5.03 10 4.00-5.40 Red Blood Count ATHE NA ([facility]) hemoglobin 14.6 g/dL 12.0-15.5 Hemoglobin APPLE ([facility]) hematocrit 44.1 % 36.0-47.0 Hematocrit APPLE ([facility]) mean corpuscular hemoglobin 29.0 pg 27.0-33.0 Mean Cor puscular Hemoglobin APPLE ([facility]) mean corpuscular volume 87.7 fL 80.0-96.0 Mean Corpusc ular Volume APPLE ([facility]) platelet count, automated 264 10 150-450 Platelet C ount, Automated APPLE ([facility]) mean corpuscular HGB conc 33.1 g/dL 32.0-36.5 Mean Corpu scular HGB Conc APPLE ([facility]) red cell distribution width 12.1 % 11.5-14.5 Red Cell Distribution Width APPLE ([facility]) neutrophils % 51.6 % 36.0-66.0 Neutrophils % APPLE ( [facility]) eos % 7.4 % 0.0-3.0 Above high normal Eos % APPLE ([facility]) baso % 1.0 % 0.0-1.0 Baso % APPLE ([facility]) mono % 8.3 % 0.0-8.0 Above high normal [place] % APPLE ([facility]) lymph % 31.5 % 24.0-44.0 Lymph % APPLE ([facility]) immature granulocyte % 0.2 % 0-3.0 Immature Gran ulocyte % APPLE ([facility]) neutrophils # 3.2 10 1.5-8.5 Neutrophils # APPLE ( [facility]) lymph # 2.0 10 1.5-5.0 Lymph # APPLE ([facility]) mono # 0.5 10 0.0-0.8 [place] # APPLE ([facility]) nucleated red blood cell % 0.0 % 0-0 Nucleated Red Blood Cell % APPLE ([facility]) eos # 0.5 10 0.0-0.5 Eos # APPLE ([facility]) baso # 0.1 10 0.0-0.2 Baso # APPLE ([facility]) ID Date Data Source [id number] 08/10/2020 09:40:00 AM EST APPLE ([facility]) Name Value Range Interpretation Code Description Data Stephanie rce(s) Supporting Document(s) C reactive protein quantitativ 0.68 mg/dL 0.00-0.30 Above high normal C Reactive Protein Quantitativ APPLE ([facility]) ID Date Data Source [id number] 08/10/2020 09:40:00 AM EST APPLE ([facility]) Name Value Range Interpretation Code Description Data Stephanie rce(s) Supporting Document(s) triglycerides level 212 mg/dL <150 Above high normal Triglycer ides Level APPLE ([facility]) cholesterol level 216 mg/dL <200 Above high normal Cholesterol Level APPLE ([facility]) HDL cholesterol 51 mg/dL >40 HDL Cholesterol ATHE NA ([facility]) Cholesterol in LDL [Mass/volume] in Serum or Plasma 123 mg/dL <100 Above high normal LDL Cholesterol [facility] ([facility]) non-HDL-C 165 mg/dL Non-hdl-c APPLE ([facility]) cholesterol risk ratio <5 Cholesterol R isk Ratio APPLE ([facility]) ID Date Data Source [id number] 08/10/2020 09:40:00 AM EST APPLE ([facility]) Name Value Range Interpretation Code Description Data Stephanie rce(s) Supporting Document(s) glucose, fasting 82 mg/dL 70-100 Glucose, Fasting AT [place] ([facility]) blood urea nitrogen 15 mg/dL 7-18 Blood Urea Nitro gen APPLE ([facility]) creatinine for GFR 0.70 mg/dL 0.55-1.30 Creatinine for GF R APPLE ([facility]) sodium level 139 mEq/L 136-145 Sodium Level APPLE (No Pending sale to [facility]) potassium serum 4.5 mEq/L 3.5-5.1 Potassium Serum ATHE ([facility]) glomerular filtration rate > 60.0 >60 [place] Filtration Rate APPLE ([facility]) calcium level 9.3 mg/dL 8.5-10.1 Calcium Level APPLE ( [facility]) anion gap 7 mEq/L 8-16 Below low normal Anion Gap APPLE ( [facility]) carbon dioxide level 28 mEq/L 21-32 Carbon Dioxide Level APPLE ([facility]) chloride level 104 mEq/L 98-107 Chloride Level APPLE ([facility]) AST/SGOT 10 U/L 7-37 AST/SGOT [facility] ([facility]) bilirubin,total 0.3 mg/dL 0.2-1.0 Bilirubin,total ATHE ([facility]) alkaline phosphatase 95 U/L 45-117 Alkaline Phosph atase AP[facility] ([facility]) ALT/SGPT 18 U/L 12-78 ALT/SGPT AP[facility] ([facility]) albumin 3.8 gm/dL 3.2-5.2 Albumin APPLE ([facility]) total protein 7.2 gm/dL 6.4-8.2 Total Protein APPLE ( [facility]) albumin/globulin ratio 1.2-2.2 Below low normal Albumin /globulin Ratio APPLE ([facility]) ID Date Data Source [id number] 08/10/2020 09:40:00 AM EST APPLE ([facility]) Name Value Range Interpretation Code Description Data Stephanie rce(s) Supporting Document(s) lyme disease IgM Ab quantitati <0.80 0.00-0.79 Lyme Disease IgM Ab Quantitati AP[facility] ([facility]) lyme disease IgG/IgM antibodie <0.91 0.00-0.90 Lyme Disease IgG/IgM Antibodie AP[facility] ([facility]) ID Date Data Source [id number] 08/10/2020 09:40:00 AM EST APPLE ([facility]) Name Value Range Interpretation Code Description Data Stephanie rce(s) Supporting Document(s) erythrocyte sedimentation rate 9 mm/HR 0-20 Eryth rocyte Sedimentation Rate APPLE ([facility]) ID Date Data Source [id number] 08/10/2020 09:40:00 AM EST AP[facility] ([facility]) Name Value Range Interpretation Code Description Data Stephanie rce(s) Supporting Document(s) red blood count 5.03 10 4.00-5.40 Red Blood Count ATHE [facility]) white blood count 6.2 10 4.0-10.0 White Blood Count [place] ([facility]) hemoglobin 14.6 g/dL 12.0-15.5 Hemoglobin [place] ([facility]) mean corpuscular hemoglobin 29.0 pg 27.0-33.0 Mean Cor puscular Hemoglobin APPLE ([facility]) hematocrit 44.1 % 36.0-47.0 Hematocrit [place] ([facility]) mean corpuscular volume 87.7 fL 80.0-96.0 Mean Corpusc ular Volume APPLE ([facility]) neutrophils % 51.6 % 36.0-66.0 Neutrophils % [place] ( [facility]) mean corpuscular HGB conc 33.1 g/dL 32.0-36.5 Mean Corpu scular HGB Conc [place] ([facility]) red cell distribution width 12.1 % 11.5-14.5 Red Cell Distribution Width [place] ([facility]) platelet count, automated 264 10 150-450 Platelet C ount, Automated AP[facility] ([facility]) baso % 1.0 % 0.0-1.0 Baso % AP[facility] ([facility]) eos % 7.4 % 0.0-3.0 Above high normal Eos % APPLE ([facility]) immature granulocyte % 0.2 % 0-3.0 Immature Gran ulocyte % APPLE ([facility]) lymph % 31.5 % 24.0-44.0 Lymph % APPLE ([facility]) mono % 8.3 % 0.0-8.0 Above high normal [place] % APPLE ([facility]) mono # 0.5 10 0.0-0.8 [place] # APPLE ([facility]) lymph # 2.0 10 1.5-5.0 Lymph # AP[facility] ([facility]) neutrophils # 3.2 10 1.5-8.5 Neutrophils # [place] ( [facility]) nucleated red blood cell % 0.0 % 0-0 Nucleated Red Blood Cell % APPLE ([facility]) eos # 0.5 10 0.0-0.5 Eos # AP[facility] ([facility]) baso # 0.1 10 0.0-0.2 Baso # AP[facility] ([facility]) ID Date Data Source [id number] 08/10/2020 09:40:00 AM EST [place] ([facility]) Name Value Range Interpretation Code Description Data Stephanie rce(s) Supporting Document(s) C reactive protein quantitativ 0.68 mg/dL 0.00-0.30 Above high normal C Reactive Protein Quantitativ APPLE ([facility]) ID Date Data Source [id number] 08/10/2020 09:40:00 AM EST [place] ([facility]) Name Value Range Interpretation Code Description Data Stephanie rce(s) Supporting Document(s) triglycerides level 212 mg/dL <150 Above high normal Triglycer ides Level APPLE ([facility]) cholesterol level 216 mg/dL <200 Above high normal Cholesterol Level APPLE ([facility]) Cholesterol in LDL [Mass/volume] in Serum or Plasma 123 mg/dL <100 Above high normal LDL Cholesterol [facility] ([facility]) non-HDL-C 165 mg/dL Non-hdl-c AP[facility] ([facility]) cholesterol risk ratio <5 Cholesterol R isk Ratio APPLE ([facility]) HDL cholesterol 51 mg/dL >40 HDL Cholesterol ATHE NA ([facility]) ID Date Data Source [id number] 08/10/2020 09:40:00 AM EST AP[facility] ([facility]) Name Value Range Interpretation Code Description Data Stephanie rce(s) Supporting Document(s) glucose, fasting 82 mg/dL 70-100 Glucose, Fasting AT [facility] ([facility]) blood urea nitrogen 15 mg/dL 7-18 Blood Urea Nitro gen [place] ([facility]) creatinine for GFR 0.70 mg/dL 0.55-1.30 Creatinine for GF R APPLE ([facility]) glomerular filtration rate > 60.0 >60 [place] Filtration Rate APPLE ([facility]) sodium level 139 mEq/L 136-145 Sodium Level APPLE (No Pending sale to [facility]) potassium serum 4.5 mEq/L 3.5-5.1 Potassium Serum ATHE NA ([facility]) chloride level 104 mEq/L 98-107 Chloride Level [place] ([facility]) AST/SGOT 10 U/L 7-37 AST/SGOT [facility] ([facility]) carbon dioxide level 28 mEq/L 21-32 Carbon Dioxide Level APPLE ([facility]) calcium level 9.3 mg/dL 8.5-10.1 Calcium Level AP[facility] ( [facility]) anion gap 7 mEq/L 8-16 Below low normal Anion Gap AP[facility] ( [facility]) alkaline phosphatase 95 U/L 45-117 Alkaline Phosph atase AP[facility] ([facility]) bilirubin,total 0.3 mg/dL 0.2-1.0 Bilirubin,total ATHE ([facility]) total protein 7.2 gm/dL 6.4-8.2 Total Protein APPLE ( [facility]) ALT/SGPT 18 U/L 12-78 ALT/SGPT [facility] ([facility]) albumin/globulin ratio 1.2-2.2 Below low normal Albumin /globulin Ratio APPLE ([facility]) albumin 3.8 gm/dL 3.2-5.2 Albumin AP[facility] ([facility]) ID Date Data Source [id number] 08/10/2020 09:40:00 AM EST [facility] ([facility]) Name Value Range Interpretation Code Description Data Stephanie rce(s) Supporting Document(s) lyme disease IgM Ab quantitati <0.80 0.00-0.79 Lyme Disease IgM Ab Quantitati AP[facility] ([facility]) lyme disease IgG/IgM antibodie <0.91 0.00-0.90 Lyme Disease IgG/IgM Antibodie AP[facility] ([facility]) ID Date Data Source [id number] 08/10/2020 09:40:00 AM EST [place] ([facility]) Name Value Range Interpretation Code Description Data Stephanie rce(s) Supporting Document(s) erythrocyte sedimentation rate 9 mm/HR 0-20 Eryth rocyte Sedimentation Rate AP[facility] ([facility]) ID Date Data Source [id number] 08/10/2020 09:40[facility] Name Value Range Interpretation Code Description Data Stephanie rce(s) Supporting Document(s) white blood count 6.2 10 4.0-10.0 White Blood Count AP[facility] ([facility]) hemoglobin 14.6 g/dL 12.0-15.5 Hemoglobin APPLE ([facility]) red blood count 5.03 10 4.00-5.40 Red Blood Count ATHE ([facility]) hematocrit 44.1 % 36.0-47.0 Hematocrit AP[facility] ([facility]) mean corpuscular volume 87.7 fL 80.0-96.0 Mean Corpusc ular Volume APPLE ([facility]) mean corpuscular hemoglobin 29.0 pg 27.0-33.0 Mean Cor puscular Hemoglobin AP[facility] ([facility]) platelet count, automated 264 10 150-450 Platelet C ount, Automated [facility] ([facility]) mean corpuscular HGB conc 33.1 g/dL 32.0-36.5 Mean Corpu scular HGB Conc [place] ([facility]) red cell distribution width 12.1 % 11.5-14.5 Red Cell Distribution Width AP[facility] ([facility]) eos % 7.4 % 0.0-3.0 Above high normal Eos % AP[facility] ([facility]) baso % 1.0 % 0.0-1.0 Baso % [place] ([facility]) neutrophils % 51.6 % 36.0-66.0 Neutrophils % [place] ( [facility]) mono % 8.3 % 0.0-8.0 Above high normal [place] % [place] ([facility]) lymph % 31.5 % 24.0-44.0 Lymph % [place] ([facility]) neutrophils # 3.2 10 1.5-8.5 Neutrophils # [place] ( [facility]) nucleated red blood cell % 0.0 % 0-0 Nucleated Red Blood Cell % [place] ([facility]) immature granulocyte % 0.2 % 0-3.0 Immature Gran ulocyte % [place] ([facility]) lymph # 2.0 10 1.5-5.0 Lymph # [place] ([facility]) mono # 0.5 10 0.0-0.8 [place] # APPLE ([facility]) baso # 0.1 10 0.0-0.2 Baso # AP[facility] ([facility]) eos # 0.5 10 0.0-0.5 Eos # [facility] ([facility]) ID Date Data Source [id number] 08/10/2020 09:40:00 AM EST [place] ([facility]) Name Value Range Interpretation Code Description Data Stephanie rce(s) Supporting Document(s) C reactive protein quantitativ 0.68 mg/dL 0.00-0.30 Above high normal C Reactive Protein Quantitativ [place] ([facility]) ID Date Data Source [id number] 08/10/2020 09:40:00 AM EST [facility] ([facility]) Name Value Range Interpretation Code Description Data Stephanie rce(s) Supporting Document(s) triglycerides level 212 mg/dL <150 Above high normal Triglycer ides Level AP[facility] ([facility]) cholesterol level 216 mg/dL <200 Above high normal Cholesterol Level AP[facility] ([facility]) Cholesterol in LDL [Mass/volume] in Serum or Plasma 123 mg/dL <100 Above high normal LDL Cholesterol [facility] ([facility]) HDL cholesterol 51 mg/dL >40 HDL Cholesterol ATHE ([facility]) non-HDL-C 165 mg/dL Non-hdl-c [facility] ([facility]) cholesterol risk ratio <5 Cholesterol R isk Ratio AP[facility] ([facility]) ID Date Data Source [id number] 08/10/2020 09:40:00 AM EST [facility] ([facility]) Name Value Range Interpretation Code Description Data Stephanie rce(s) Supporting Document(s) glucose, fasting 82 mg/dL 70-100 Glucose, Fasting AT [facility]) blood urea nitrogen 15 mg/dL 7-18 Blood Urea Nitro gen [facility] ([facility]) creatinine for GFR 0.70 mg/dL 0.55-1.30 Creatinine for GF R [facility] ([facility]) glomerular filtration rate > 60.0 >60 [place] Filtration Rate AP[facility] ([facility]) potassium serum 4.5 mEq/L 3.5-5.1 Potassium Serum ATHE NA ([facility]) sodium level 139 mEq/L 136-145 Sodium Level AP[facility] ([facility]) chloride level 104 mEq/L 98-107 Chloride Level AP[facility] ([facility]) anion gap 7 mEq/L 8-16 Below low normal Anion Gap AP[facility] ( [facility]) calcium level 9.3 mg/dL 8.5-10.1 Calcium Level AP[facility] ( [facility]) carbon dioxide level 28 mEq/L 21-32 Carbon Dioxide Level [facility] ([facility]) AST/SGOT 10 U/L 7-37 AST/SGOT [facility] ([facility]) ALT/SGPT 18 U/L 12-78 ALT/SGPT [facility] ([facility]) total protein 7.2 gm/dL 6.4-8.2 Total Protein AP[facility] ( [facility]) alkaline phosphatase 95 U/L 45-117 Alkaline Phosph atase AP[facility] ([facility]) bilirubin,total 0.3 mg/dL 0.2-1.0 Bilirubin,total ATHE NA ([facility]) albumin 3.8 gm/dL 3.2-5.2 Albumin [facility] ([facility]) albumin/globulin ratio 1.2-2.2 Below low normal Albumin /globulin Ratio APPLE ([facility]) ID Date Data Source [id number] 08/10/2020 09:40:00 AM EST [facility] ([facility]) Name Value Range Interpretation Code Description Data Stephanie rce(s) Supporting Document(s) lyme disease IgG/IgM antibodie <0.91 0.00-0.90 Lyme Disease IgG/IgM Antibodie AP[facility] ([facility]) lyme disease IgM Ab quantitati <0.80 0.00-0.79 Lyme Disease IgM Ab Quantitati AP[facility] ([facility]) ID Date Data Source [id number] 08/10/2020 09:40:00 AM EST [facility] ([facility]) Name Value Range Interpretation Code Description Data Stephanie rce(s) Supporting Document(s) erythrocyte sedimentation rate 9 mm/HR 0-20 Eryth rocyte Sedimentation Rate [facility] ([facility]) ID Date Data Source [id number] 08/10/2020 09:40:00 AM EST [facility]) Name Value Range Interpretation Code Description Data Stephanie rce(s) Supporting Document(s) white blood count 6.2 10 4.0-10.0 White Blood Count AP[facility] ([facility]) red blood count 5.03 10 4.00-5.40 Red Blood Count ATHE NA ([facility]) mean corpuscular HGB conc 33.1 g/dL 32.0-36.5 Mean Corpu scular HGB Conc AP[facility] ([facility]) hemoglobin 14.6 g/dL 12.0-15.5 Hemoglobin A[facility] ([facility]) mean corpuscular hemoglobin 29.0 pg 27.0-33.0 Mean Cor puscular Hemoglobin AP[facility] ([facility]) mean corpuscular volume 87.7 fL 80.0-96.0 Mean Corpusc ular Volume APPLE ([facility]) hematocrit 44.1 % 36.0-47.0 Hematocrit AP[facility] ([facility]) eos % 7.4 % 0.0-3.0 Above high normal Eos % APPLE ([facility]) neutrophils % 51.6 % 36.0-66.0 Neutrophils % AP[facility] ( [facility]) lymph % 31.5 % 24.0-44.0 Lymph % [facility] ([facility]) red cell distribution width 12.1 % 11.5-14.5 Red Cell Distribution Width [facility] ([facility]) mono % 8.3 % 0.0-8.0 Above high normal [place] % APPLE ([facility]) platelet count, automated 264 10 150-450 Platelet C ount, Automated AP[facility] ([facility]) baso % 1.0 % 0.0-1.0 Baso % AP[facility] ([facility]) lymph # 2.0 10 1.5-5.0 Lymph # [facility] ([facility]) neutrophils # 3.2 10 1.5-8.5 Neutrophils # [place] ( [facility]) nucleated red blood cell % 0.0 % 0-0 Nucleated Red Blood Cell % AP[facility] ([facility]) immature granulocyte % 0.2 % 0-3.0 Immature Gran ulocyte % AP[facility] ([facility]) eos # 0.5 10 0.0-0.5 Eos # [facility] ([facility]) baso # 0.1 10 0.0-0.2 Baso # [facility] ([facility]) mono # 0.5 10 0.0-0.8 [place] # APPLE ([facility]) ID Date Data Source [id number] 08/10/2020 09:40:00 AM EST [facility] ([facility]) Name Value Range Interpretation Code Description Data Stephanie rce(s) Supporting Document(s) C reactive protein quantitativ 0.68 mg/dL 0.00-0.30 Above high normal C Reactive Protein Quantitativ [facility] ([facility]) ID Date Data Source [id number] 08/10/2020 09:40:00 AM EST [facility] ([facility]) Name Value Range Interpretation Code Description Data Stephanie rce(s) Supporting Document(s) triglycerides level 212 mg/dL <150 Above high normal Triglycer ides Level [facility] ([facility]) HDL cholesterol 51 mg/dL >40 HDL Cholesterol ATHE NA ([facility]) cholesterol level 216 mg/dL <200 Above high normal Cholesterol Level [facility] ([facility]) non-HDL-C 165 mg/dL Non-hdl-c [facility] ([facility]) Cholesterol in LDL [Mass/volume] in Serum or Plasma 123 mg/dL <100 Above high normal LDL Cholesterol [facility] ([facility]) cholesterol risk ratio <5 Cholesterol R isk Ratio AP[facility] ([facility]) ID Date Data Source [id number] 08/10/2020 09:40:00 AM EST [facility] ([facility]) Name Value Range Interpretation Code Description Data Stephanie rce(s) Supporting Document(s) creatinine for GFR 0.70 mg/dL 0.55-1.30 Creatinine for GF R [facility] ([facility]) glucose, fasting 82 mg/dL 70-100 Glucose, Fasting AT [place] ([facility]) blood urea nitrogen 15 mg/dL 7-18 Blood Urea Nitro gen APPLE ([facility]) glomerular filtration rate > 60.0 >60 Glomerula r Filtration Rate APPLE ([facility]) sodium level 139 mEq/L 136-145 Sodium Level APPLE ([facility]) potassium serum 4.5 mEq/L 3.5-5.1 Potassium Serum ATHE NA ([facility]) chloride level 104 mEq/L 98-107 Chloride Level APPLE ([facility]) anion gap 7 mEq/L 8-16 Below low normal Anion Gap APPLE ( [facility]) AST/SGOT 10 U/L 7-37 AST/SGOT [facility] ([facility]) carbon dioxide level 28 mEq/L 21-32 Carbon Dioxide Level APPLE ([facility]) calcium level 9.3 mg/dL 8.5-10.1 Calcium Level APPLE ( [facility]) total protein 7.2 gm/dL 6.4-8.2 Total Protein APPLE ( [facility]) alkaline phosphatase 95 U/L 45-117 Alkaline Phosph atase APPLE ([facility]) ALT/SGPT 18 U/L 12-78 ALT/SGPT [facility] ([facility]) bilirubin,total 0.3 mg/dL 0.2-1.0 Bilirubin,total ATHE NA ([facility]) albumin 3.8 gm/dL 3.2-5.2 Albumin APPLE ([facility]) albumin/globulin ratio 1.2-2.2 Below low normal Albumin /globulin Ratio APPLE ([facility]) ID Date Data Source [id number] 08/10/2020 09:40:00 AM EST AP[facility] ([facility]) Name Value Range Interpretation Code Description Data Stephanie rce(s) Supporting Document(s) C reactive protein quantitativ 0.68 mg/dL 0.00-0.30 Above high normal C Reactive Protein Quantitativ [facility]) ID Date Data Source [id number] 08/10/2020 09:40:00 AM EST AP[facility] ([facility]) Name Value Range Interpretation Code Description Data Stephanie rce(s) Supporting Document(s) triglycerides level 212 mg/dL <150 Above high normal Triglycer ides Level APPLE ([facility]) cholesterol level 216 mg/dL <200 Above high normal Cholesterol Level AP[facility] ([facility]) HDL cholesterol 51 mg/dL >40 HDL Cholesterol ATHE NA ([facility]) non-HDL-C 165 mg/dL Non-hdl-c AP[facility] ([facility]) Cholesterol in LDL [Mass/volume] in Serum or Plasma 123 mg/dL <100 Above high normal LDL Cholesterol [facility] ([facility]) cholesterol risk ratio <5 Cholesterol R isk Ratio AP[facility] ([facility]) ID Date Data Source [id number] 08/10/2020 09:40[facility] Name Value Range Interpretation Code Description Data Stephanie rce(s) Supporting Document(s) glucose, fasting 82 mg/dL 70-100 Glucose, Fasting AT [facility] ([facility]) creatinine for GFR 0.70 mg/dL 0.55-1.30 Creatinine for GF R APPLE ([facility]) blood urea nitrogen 15 mg/dL 7-18 Blood Urea Nitro gen APPLE ([facility]) glomerular filtration rate > 60.0 >60 [place]omer[place] r Filtration Rate APPLE ([facility]) sodium level 139 mEq/L 136-145 Sodium Level APPLE (No Pending [facility] to [facility]) chloride level 104 mEq/L 98-107 Chloride Level APPLE ([facility]) potassium serum 4.5 mEq/L 3.5-5.1 Potassium Serum ATHE NA ([facility]) anion gap 7 mEq/L 8-16 Below low normal Anion Gap APPLE ( [facility]) carbon dioxide level 28 mEq/L 21-32 Carbon Dioxide Level APPLE ([facility]) calcium level 9.3 mg/dL 8.5-10.1 Calcium Level APPLE ( [facility]) alkaline phosphatase 95 U/L 45-117 Alkaline Phosph atase AP[facility] ([facility]) ALT/SGPT 18 U/L 12-78 ALT/SGPT [facility] ([facility]) AST/SGOT 10 U/L 7-37 AST/SGOT [facility] ([facility]) bilirubin,total 0.3 mg/dL 0.2-1.0 Bilirubin,total ATHE ([facility]) albumin/globulin ratio 1.2-2.2 Below low normal Albumin /globulin Ratio APPLE ([facility]) albumin 3.8 gm/dL 3.2-5.2 Albumin AP[facility] ([facility]) total protein 7.2 gm/dL 6.4-8.2 Total Protein APPLE ( [facility]) ID Date Data Source [id number] 08/10/2020 09:40:00 AM EST AP[facility] ([facility]) Name Value Range Interpretation Code Description Data Stephanie rce(s) Supporting Document(s) lyme disease IgG/IgM antibodie <0.91 0.00-0.90 Lyme Disease IgG/IgM Antibodie AP[facility] ([facility]) lyme disease IgM Ab quantitati <0.80 0.00-0.79 Lyme Disease IgM Ab Quantitati APPLE ([facility]) ID Date Data Source [id number] 08/10/2020 09:40:00 AM EST AP[facility] ([facility]) Name Value Range Interpretation Code Description Data Stephanie rce(s) Supporting Document(s) erythrocyte sedimentation rate 9 mm/HR 0-20 Eryth rocyte Sedimentation Rate AP[facility] ([facility]) ID Date Data Source [id number] 08/10/2020 09:40:00 AM EST [facility]) Name Value Range Interpretation Code Description Data Stephanie rce(s) Supporting Document(s) hemoglobin 14.6 g/dL 12.0-15.5 Hemoglobin APPLE ([facility]) red blood count 5.03 10 4.00-5.40 Red Blood Count ATHE NA ([facility]) white blood count 6.2 10 4.0-10.0 White Blood Count APPLE ([facility]) mean corpuscular hemoglobin 29.0 pg 27.0-33.0 Mean Cor puscular Hemoglobin APPLE ([facility]) mean corpuscular HGB conc 33.1 g/dL 32.0-36.5 Mean Corpu scular HGB Conc APPLE ([facility]) hematocrit 44.1 % 36.0-47.0 Hematocrit APPLE ([facility]) mean corpuscular volume 87.7 fL 80.0-96.0 Mean Corpusc ular Volume APPLE ([facility]) lymph % 31.5 % 24.0-44.0 Lymph % AP[facility] ([facility]) neutrophils % 51.6 % 36.0-66.0 Neutrophils % [place] ( [facility]) red cell distribution width 12.1 % 11.5-14.5 Red Cell Distribution Width APPLE ([facility]) platelet count, automated 264 10 150-450 Platelet C ount, Automated AP[facility] ([facility]) eos % 7.4 % 0.0-3.0 Above high normal Eos % APPLE ([facility]) mono % 8.3 % 0.0-8.0 Above high normal [place] % APPLE ([facility]) nucleated red blood cell % 0.0 % 0-0 Nucleated Red Blood Cell % APPLE ([facility]) immature granulocyte % 0.2 % 0-3.0 Immature Gran ulocyte % APPLE ([facility]) baso % 1.0 % 0.0-1.0 Baso % AP[facility] ([facility]) neutrophils # 3.2 10 1.5-8.5 Neutrophils # APPLE ( [facility]) lymph # 2.0 10 1.5-5.0 Lymph # AP[facility] ([facility]) mono # 0.5 10 0.0-0.8 [place] # APPLE ([facility]) eos # 0.5 10 0.0-0.5 Eos # AP[facility] ([facility]) baso # 0.1 10 0.0-0.2 Baso # AP[facility] ([facility]) ID Date Data Source [id number] 08/10/2020 09:40:00 AM EST AP[facility] ([facility]) Name Value Range Interpretation Code Description Data Stephanie rce(s) Supporting Document(s) C reactive protein quantitativ 0.68 mg/dL 0.00-0.30 Above high normal C Reactive Protein Quantitativ AP[facility] ([facility]) ID Date Data Source [id number] 08/10/2020 09:40:00 AM EST AP[facility] ([facility]) Name Value Range Interpretation Code Description Data Stephanie rce(s) Supporting Document(s) triglycerides level 212 mg/dL <150 Above high normal Triglycer ides Level APPLE ([facility]) HDL cholesterol 51 mg/dL >40 HDL Cholesterol ATHE ([facility]) Cholesterol in LDL [Mass/volume] in Serum or Plasma 123 mg/dL <100 Above high normal LDL Cholesterol [facility] ([facility]) cholesterol level 216 mg/dL <200 Above high normal Cholesterol Level APPLE ([facility]) cholesterol risk ratio <5 Cholesterol R isk Ratio APPLE ([facility]) non-HDL-C 165 mg/dL Non-hdl-c AP[facility] ([facility]) ID Date Data Source [id number] 08/10/2020 09:40:00 AM EST APPLE ([facility]) Name Value Range Interpretation Code Description Data Stephanie rce(s) Supporting Document(s) glucose, fasting 82 mg/dL 70-100 Glucose, Fasting AT [place] ([facility]) creatinine for GFR 0.70 mg/dL 0.55-1.30 Creatinine for GF R APPLE ([facility]) glomerular filtration rate > 60.0 >60 Glomerula r Filtration Rate APPLE ([facility]) blood urea nitrogen 15 mg/dL 7-18 Blood Urea Nitro gen APPLE ([facility]) sodium level 139 mEq/L 136-145 Sodium Level APPLE ([facility]) potassium serum 4.5 mEq/L 3.5-5.1 Potassium Serum ATHE ([facility]) chloride level 104 mEq/L 98-107 Chloride Level APPLE ([facility]) carbon dioxide level 28 mEq/L 21-32 Carbon Dioxide Level APPLE ([facility]) calcium level 9.3 mg/dL 8.5-10.1 Calcium Level APPLE ( [facility]) anion gap 7 mEq/L 8-16 Below low normal Anion Gap APPLE ( [facility]) alkaline phosphatase 95 U/L 45-117 Alkaline Phosph atase APPLE ([facility]) ALT/SGPT 18 U/L 12-78 ALT/SGPT [facility] ([facility]) AST/SGOT 10 U/L 7-37 AST/SGOT [facility] ([facility]) bilirubin,total 0.3 mg/dL 0.2-1.0 Bilirubin,total ATHE ([facility]) total protein 7.2 gm/dL 6.4-8.2 Total Protein APPLE ( [facility]) albumin 3.8 gm/dL 3.2-5.2 Albumin AP[facility] ([facility]) albumin/globulin ratio 1.2-2.2 Below low normal Albumin /globulin Ratio APPLE ([facility]) ID Date Data Source [id number] 08/10/2020 09:40:00 AM EST [place] ([facility]) Name Value Range Interpretation Code Description Data Stephanie rce(s) Supporting Document(s) lyme disease IgG/IgM antibodie <0.91 0.00-0.90 Lyme Disease IgG/IgM Antibodie AP[facility] ([facility]) lyme disease IgM Ab quantitati <0.80 0.00-0.79 Lyme Disease IgM Ab Quantitati [place] ([facility]) ID Date Data Source [id number] 08/10/2020 09:40:00 AM EST [place] ([facility]) Name Value Range Interpretation Code Description Data Stephanie rce(s) Supporting Document(s) erythrocyte sedimentation rate 9 mm/HR 0-20 Eryth rocyte Sedimentation Rate APPLE ([facility]) ID Date Data Source [id number] 08/10/2020 09:40:00 AM EST AP[facility] ([facility]) Name Value Range Interpretation Code Description Data Stephanie rce(s) Supporting Document(s) red blood count 5.03 10 4.00-5.40 Red Blood Count ATHE NA ([facility]) white blood count 6.2 10 4.0-10.0 White Blood Count APPLE ([facility]) mean corpuscular hemoglobin 29.0 pg 27.0-33.0 Mean Cor puscular Hemoglobin APPLE ([facility]) hemoglobin 14.6 g/dL 12.0-15.5 Hemoglobin APPLE ([facility]) mean corpuscular volume 87.7 fL 80.0-96.0 Mean Corpusc ular Volume PAPLE ([facility]) hematocrit 44.1 % 36.0-47.0 Hematocrit APPLE ([facility]) mean corpuscular HGB conc 33.1 g/dL 32.0-36.5 Mean Corpu scular HGB Conc APPLE ([facility]) red cell distribution width 12.1 % 11.5-14.5 Red Cell Distribution Width APPLE ([facility]) platelet count, automated 264 10 150-450 Platelet C ount, Automated AP[facility] ([facility]) neutrophils % 51.6 % 36.0-66.0 Neutrophils % AP[facility] ( [facility]) mono % 8.3 % 0.0-8.0 Above high normal [place] % APPLE ([facility]) lymph % 31.5 % 24.0-44.0 Lymph % [facility] ([facility]) baso % 1.0 % 0.0-1.0 Baso % AP[facility] ([facility]) immature granulocyte % 0.2 % 0-3.0 Immature Gran ulocyte % AP[facility] ([facility]) eos % 7.4 % 0.0-3.0 Above high normal Eos % AP[facility] ([facility]) mono # 0.5 10 0.0-0.8 [place] # APPLE ([facility]) lymph # 2.0 10 1.5-5.0 Lymph # AP[facility] ([facility]) neutrophils # 3.2 10 1.5-8.5 Neutrophils # AP[facility] ( [facility]) nucleated red blood cell % 0.0 % 0-0 Nucleated Red Blood Cell % AP[facility] ([facility]) eos # 0.5 10 0.0-0.5 Eos # [facility] ([facility]) baso # 0.1 10 0.0-0.2 Baso # AP[facility] ([facility]) ID Date Data Source [id number] 08/10/2020 09:40:00 AM EST [facility] ([facility]) Name Value Range Interpretation Code Description Data Stephanie rce(s) Supporting Document(s) C reactive protein quantitativ 0.68 mg/dL 0.00-0.30 Above high normal C Reactive Protein Quantitativ AP[facility] ([facility]) ID Date Data Source [id number] 08/10/2020 09:40:00 AM EST AP[facility] ([facility]) Name Value Range Interpretation Code Description Data Stephanie rce(s) Supporting Document(s) triglycerides level 212 mg/dL <150 Above high normal Triglycer ides Level AP[facility] ([facility]) Cholesterol in LDL [Mass/volume] in Serum or Plasma 123 mg/dL <100 Above high normal LDL Cholesterol [facility] ([facility]) HDL cholesterol 51 mg/dL >40 HDL Cholesterol ATHE NA ([facility]) cholesterol level 216 mg/dL <200 Above high normal Cholesterol Level AP[facility] ([facility]) non-HDL-C 165 mg/dL Non-hdl-c [facility] ([facility]) cholesterol risk ratio <5 Cholesterol R isk Ratio APPLE ([facility]) ID Date Data Source [id number] 08/10/2020 09:40:00 AM EST [facility] ([facility]) Name Value Range Interpretation Code Description Data Stephanie rce(s) Supporting Document(s) glucose, fasting 82 mg/dL 70-100 Glucose, Fasting AT [place] ([facility]) creatinine for GFR 0.70 mg/dL 0.55-1.30 Creatinine for GF R APPLE ([facility]) glomerular filtration rate > 60.0 >60 [place] r Filtration Rate APPLE ([facility]) blood urea nitrogen 15 mg/dL 7-18 Blood Urea Nitro gen APPLE ([facility]) chloride level 104 mEq/L 98-107 Chloride Level APPLE ([facility]) potassium serum 4.5 mEq/L 3.5-5.1 Potassium Serum ATHE NA ([facility]) sodium level 139 mEq/L 136-145 Sodium Level [facility] ([facility]) calcium level 9.3 mg/dL 8.5-10.1 Calcium Level APPLE ( [facility]) anion gap 7 mEq/L 8-16 Below low normal Anion Gap APPLE ( [facility]) carbon dioxide level 28 mEq/L 21-32 Carbon Dioxide Level APPLE ([facility]) AST/SGOT 10 U/L 7-37 AST/SGOT [facility] ([facility]) alkaline phosphatase 95 U/L 45-117 Alkaline Phosph atase AP[facility] ([facility]) ALT/SGPT 18 U/L 12-78 ALT/SGPT [facility] ([facility]) bilirubin,total 0.3 mg/dL 0.2-1.0 Bilirubin,total ATHE ([facility]) total protein 7.2 gm/dL 6.4-8.2 Total Protein APPLE ( [facility]) albumin 3.8 gm/dL 3.2-5.2 Albumin AP[facility] ([facility]) albumin/globulin ratio 1.2-2.2 Below low normal Albumin /globulin Ratio APPLE ([facility]) ID Date Data Source [id number] 08/10/2020 09:40:00 AM EST [facility] ([facility]) Name Value Range Interpretation Code Description Data Stephanie rce(s) Supporting Document(s) lyme disease IgG/IgM antibodie <0.91 0.00-0.90 Lyme Disease IgG/IgM Antibodie [facility] ([facility]) lyme disease IgM Ab quantitati <0.80 0.00-0.79 Lyme Disease IgM Ab Quantitati [place] ([facility]) ID Date Data Source [id number] 08/10/2020 09:40:00 AM EST [place] ([facility]) Name Value Range Interpretation Code Description Data Stephanie rce(s) Supporting Document(s) erythrocyte sedimentation rate 9 mm/HR 0-20 Eryth rocyte Sedimentation Rate [place] ([facility]) ID Date Data Source [id number] 08/10/2020 09:40:00 AM EST [place] ([facility]) Name Value Range Interpretation Code Description Data Stephanie rce(s) Supporting Document(s) white blood count 6.2 10 4.0-10.0 White Blood Count [place] ([facility]) red blood count 5.03 10 4.00-5.40 [facility] mean corpuscular volume 87.7 fL 80.0-96.0 Mean Corpusc ular Volume [place] ([facility]) hemoglobin 14.6 g/dL 12.0-15.5 Hemoglobin [place] ([facility]) hematocrit 44.1 % 36.0-47.0 Hematocrit AP[facility] ([facility]) platelet count, automated 264 10 150-450 Platelet C ount, Automated [facility] ([facility]) mean corpuscular HGB conc 33.1 g/dL 32.0-36.5 Mean Corpu scular HGB Conc [place] ([facility]) mean corpuscular hemoglobin 29.0 pg 27.0-33.0 Mean Cor puscular Hemoglobin AP[facility] ([facility]) red cell distribution width 12.1 % 11.5-14.5 Red Cell Distribution Width AP[facility] ([facility]) neutrophils % 51.6 % 36.0-66.0 Neutrophils % [place] ( [facility]) lymph % 31.5 % 24.0-44.0 Lymph % [facility] ([facility]) eos % 7.4 % 0.0-3.0 Above high normal Eos % [facility] ([facility]) mono % 8.3 % 0.0-8.0 Above high normal [place] % APPLE ([facility]) baso % 1.0 % 0.0-1.0 Baso % [facility] ([facility]) immature granulocyte % 0.2 % 0-3.0 Immature Gran ulocyte % [facility] ([facility]) lymph # 2.0 10 1.5-5.0 Lymph # [facility] ([facility]) eos # 0.5 10 0.0-0.5 Eos # [place] ([facility]) mono # 0.5 10 0.0-0.8 [place] # [place] ([facility]) nucleated red blood cell % 0.0 % 0-0 Nucleated Red Blood Cell % [facility] ([facility]) neutrophils # 3.2 10 1.5-8.5 Neutrophils # [place] ( [facility]) baso # 0.1 10 0.0-0.2 Baso # [place] ([facility]) ID Date Data Source [id number] 05/05/2020 08:55:00 AM EST [facility]) Name Value Range Interpretation Code Description Data Stephanie rce(s) Supporting Document(s) SARS-CoV-2 (COVID-19) RNA [Presence] in Respiratory specimen by SKYE with probe detection not detected not detected Sars Cov 2 RNA [place] ([facility]) ID Date Data Source [id number] 05/05/2020 08:55:00 AM EST [place] ([facility]) Name Value Range Interpretation Code Description Data Stephanie rce(s) Supporting Document(s) SARS-CoV-2 (COVID-19) RNA [Presence] in Respiratory specimen by SKYE with probe detection not detected not detected Sars Cov 2 RNA [place] ([facility]) ID Date Data Source [id number] 05/05/2020 08:55:00 AM EST [facility]) Name Value Range Interpretation Code Description Data Stephanie rce(s) Supporting Document(s) SARS-CoV-2 (COVID-19) RNA [Presence] in Respiratory specimen by SKYE with probe detection not detected not detected Sars Cov 2 RNA [facility]) ID Date Data Source [id number] 05/05/2020 08:55:00 AM EST [facility]) Name Value Range Interpretation Code Description Data Stephanie rce(s) Supporting Document(s) SARS-CoV-2 (COVID-19) RNA [Presence] in Respiratory specimen by SKYE with probe detection not detected not detected Sars Cov 2 RNA [facility]) ID Date Data Source [id number] 05/05/2020 08:55:00 AM EST [facility]) Name Value Range Interpretation Code Description Data Stephanie rce(s) Supporting Document(s) SARS-CoV-2 (COVID-19) RNA [Presence] in Respiratory specimen by SKYE with probe detection not detected not detected Sars Cov 2 RNA [facility]) ID Date Data Source [id number] 05/05/2020 08:55:00 AM EST [facility]) Name Value Range Interpretation Code Description Data Stephanie rce(s) Supporting Document(s) SARS-CoV-2 (COVID-19) RNA [Presence] in Respiratory specimen by SKYE with probe detection not detected not detected Sars Cov 2 RNA [facility]) ID Date Data Source [id number] 05/05/2020 08:55:00 AM EST [facility]) Name Value Range Interpretation Code Description Data Stephanie rce(s) Supporting Document(s) SARS-CoV-2 (COVID-19) RNA [Presence] in Respiratory specimen by SKYE with probe detection not detected not detected Sars Cov 2 RNA [facility] ([facility]) ID Date Data Source [id number] 05/05/2020 08:55:00 AM EST [facility] ([facility]) Name Value Range Interpretation Code Description Data Stephanie rce(s) Supporting Document(s) SARS-CoV-2 (COVID-19) RNA [Presence] in Respiratory specimen by SKYE with probe detection not detected not detected Sars Cov 2 RNA [facility] ([facility]) Procedure Social History Code Duration Value Status Description Data Source(s ) Smoking 03/30/2021 12:00:00 AM EDT Former Smoker completed Former Smoker eCW1 ([facility]) Smoking 03/30/2021 12:00:00 AM EDT Former Smoker completed Former Smoker eCW1 ([facility]) Smoking 03/30/2021 12:00:00 AM EDT Former Smoker completed Former Smoker eCW1 ([facility]) Smoking 12/25/2020 12:00:00 AM EDT Former Smoker completed Former Smoker eCW1 ([facility]) Smoking 11/09/2020 12:00:00 AM EDT Former Smoker completed Former Smoker eCW1 ([facility]) Smoking 11/09/2020 12:00:00 AM EDT Former Smoker completed Former Smoker eCW1 ([facility]) Smoking 05/12/2020 12:00:00 AM EST Patient has never smoked co mpleted Patient has never smoked [facility] ([facility]) Vital Signs ID Date Data Source UNK Name Value Range Interpretation Code Description Data Source(s) Diastolic blood pressure 84 mm[Hg] 84 mm[Hg] [facility] ([facility]) Body height 62 [in_i] 62 [in_i] [facility] ([facility]) Body mass index (BMI) [Ratio] 33.3 kg/m2 33.3 k g/m2 [facility] ([facility]) Systolic blood pressure 125 mm[Hg] 125 mm[Hg] Yevgeniy THENA ([facility]) Body weight 2916 [oz_av] 2916 [oz_av] [facility] ([facility]) Systolic blood pressure 121 mm[Hg] 121 mm[Hg] A THENA ([facility]) Diastolic blood pressure 80 mm[Hg] 80 mm[Hg] [facility] ([facility]) Body height 62 [in_i] 62 [in_i] [facility] ([facility]) Diastolic blood pressure 78 mm[Hg] 78 mm[Hg] [facility] ([facility]) Body height 62 [in_i] 62 [in_i] [facility] ([facility]) Systolic blood pressure 108 mm[Hg] 108 mm[Hg] A THENA ([facility]) Diastolic blood pressure 78 mm[Hg] 78 mm[Hg] APPLE ([facility]) Body height 62 [in_i] 62 [in_i] APPLE ([facility]) Systolic blood pressure 108 mm[Hg] 108 mm[Hg] A THENA ([facility]) Body weight 2980 [oz_av] 2980 [oz_av] APPLE ([facility]) Diastolic blood pressure 78 mm[Hg] 78 mm[Hg] APPLE ([facility]) Body height 62 [in_i] 62 [in_i] APPLE ([facility]) Body mass index (BMI) [Ratio] 34.1 kg/m2 34.1 k g/m2 APPLE ([facility]) Systolic blood pressure 115 mm[Hg] 115 mm[Hg] A THENA ([facility]) Diastolic blood pressure 78 mm[Hg] 78 mm[Hg] APPLE ([facility]) Body height 62 [in_i] 62 [in_i] APPLE ([facility]) Body mass index (BMI) [Ratio] 34.1 kg/m2 34.1 k g/m2 APPLE ([facility]) Systolic blood pressure 115 mm[Hg] 115 mm[Hg] A THENA ([facility]) Body weight 2980 [oz_av] 2980 [oz_av] APPLE ([facility]) Diastolic blood pressure 78 mm[Hg] 78 mm[Hg] APPLE ([facility]) Body height 62 [in_i] 62 [in_i] APPLE ([facility]) Body mass index (BMI) [Ratio] 34.1 kg/m2 34.1 k g/m2 APPLE ([facility]) Systolic blood pressure 115 mm[Hg] 115 mm[Hg] A THENA ([facility]) Body weight 2980 [oz_av] 2980 [oz_av] APPLE ([facility]) Body weight 186.2 [lb_av] 186.2 [lb_av] eCW1 ([facility]) Diastolic blood pressure 76 mm[Hg] 76 mm[Hg] eCW1 ([facility]) Body weight 84.46 kg 84.46 kg eCW1 ([facility]) Body height 62 [in_i] 62 [in_i] eCW1 ([facility]) Body mass index (BMI) [Ratio] 34.05 kg/m2 34.05 kg/m2 eCW1 ([facility]) Heart rate 84 /min 84 /min eCW1 ([facility]) Respiratory rate 18 /min 18 /min eCW1 ([facility]) Body temperature 97.5 [degF] 97.5 [degF] eCW1 ( [facility]) Systolic blood pressure 118 mm[Hg] 118 mm[Hg] e CW1 ([facility]) Body height 62 [in_i] 62 [in_i] MEDENT ([facility] 5'2" Body weight 189.00 [lb_av] 189.00 [lb_av] MEDEN T ([facility] Systolic blood pressure 120 mm[Hg] 120 mm[Hg] M EDENT ([facility] Diastolic blood pressure 81 mm[Hg] 81 mm[Hg] MEDENT ([facility] Heart rate 87 /min 87 /min MEDENT ([facility] Body mass index (BMI) [Ratio] 34.6 kg/m2 34.6 k g/m2 MEDENT ([facility] Body temperature 97.1 [degF] 97.1 [degF] MEDENT ([facility] ) Body height 62.5 [in_i] 62.5 [in_i] MEDENT ([facility] ) 5'2.50" Body weight 185.38 [lb_av] 185.38 [lb_av] MEDEN T ([facility] ) Body mass index (BMI) [Ratio] 33.4 kg/m2 33.4 k g/m2 MEDENT ([facility] ) Systolic blood pressure 120 mm[Hg] 120 mm[Hg] M EDENT ([facility] ) Diastolic blood pressure 70 mm[Hg] 70 mm[Hg] MEDENT ([facility] ) Heart rate 76 /min 76 /min MEDENT ([facility] ) Respiratory rate 16 /min 16 /min MEDENT ( [facility] ) Diastolic blood pressure 76 mm[Hg] 76 mm[Hg] APPLE ([facility]) Body height 62 [in_i] 62 [in_i] APPLE ([facility]) Body mass index (BMI) [Ratio] 34.4 kg/m2 34.4 k g/m2 APPLE ([facility]) Systolic blood pressure 110 mm[Hg] 110 mm[Hg] A THENA ([facility]) Body weight 3012 [oz_av] 3012 [oz_av] APPLE ([facility]) Diastolic blood pressure 76 mm[Hg] 76 mm[Hg] APPLE ([facility]) Body height 62 [in_i] 62 [in_i] APPLE ([facility]) Body mass index (BMI) [Ratio] 34.4 kg/m2 34.4 k g/m2 APPLE ([facility]) Systolic blood pressure 110 mm[Hg] 110 [facility] Body weight 3012 [oz_av] 3012 [oz_av] APPLE ([facility]) Diastolic blood pressure 76 mm[Hg] 76 mm[Hg] APPLE ([facility]) Body height 62 [in_i] 62 [in_i] APPLE ([facility]) Body mass index (BMI) [Ratio] 34.4 kg/m2 34.4 k g/m2 APPLE ([facility]) Systolic blood pressure 110 mm[Hg] 110 mm[Hg] A THENA ([facility]) Body weight 3012 [oz_av] 3012 [oz_av] APPLE ([facility]) Diastolic blood pressure 76 mm[Hg] 76 mm[Hg] APPLE ([facility]) Body height 62 [in_i] 62 [in_i] APPLE ([facility]) Body mass index (BMI) [Ratio] 34.4 kg/m2 34.4 k g/m2 APPLE ([facility]) Systolic blood pressure 110 mm[Hg] 110 mm[Hg] A THENA ([facility]) Body weight 3012 [oz_av] 3012 [oz_av] APPLE ([facility]) Body mass index (BMI) [Ratio] 33.8 kg/m2 33.8 k g/m2 APPLE ([facility]) Systolic blood pressure 119 mm[Hg] 119 mm[Hg] A THENA ([facility]) Body weight 185 [lb_av] 185 [lb_av] APPLE ([facility]) Diastolic blood pressure 81 mm[Hg] 81 mm[Hg] APPLE ([facility]) Body height 62 [in_i] 62 [in_i] APPLE ([facility]) Diastolic blood pressure 81 mm[Hg] 81 mm[Hg] APPLE ([facility]) Body height 62 [in_i] 62 [in_i] APPLE ([facility]) Body mass index (BMI) [Ratio] 33.8 kg/m2 33.8 k g/m2 APPLE ([facility]) Systolic blood pressure 119 mm[Hg] 119 mm[Hg] A THENA ([facility]) Body weight 185 [lb_av] 185 [lb_av] APPLE ([facility]) Body mass index (BMI) [Ratio] 33.8 kg/m2 33.8 k g/m2 APPLE ([facility]) Diastolic blood pressure 81 mm[Hg] 81 mm[Hg] APPLE ([facility]) Body height 62 [in_i] 62 [in_i] APPLE ([facility]) Systolic blood pressure 119 mm[Hg] 119 mm[Hg] A THENA ([facility]) Body weight 185 [lb_av] 185 [lb_av] APPLE ([facility]) Diastolic blood pressure 84 mm[Hg] 84 mm[Hg] APPLE ([facility]) Body height 62 [in_i] 62 [in_i] APPLE ([facility]) Systolic blood pressure 132 mm[Hg] 132 mm[Hg] A THENA ([facility]) Diastolic blood pressure 84 mm[Hg] 84 mm[Hg] APPLE ([facility]) Body height 62 [in_i] 62 [in_i] APPLE ([facility]) Systolic blood pressure 132 mm[Hg] 132 mm[Hg] A THENA ([facility]) Diastolic blood pressure 84 mm[Hg] 84 mm[Hg] APPLE ([facility]) Body height 62 [in_i] 62 [in_i] APPLE ([facility]) Systolic blood pressure 132 mm[Hg] 132 mm[Hg] A THENA ([facility]) Diastolic blood pressure 84 mm[Hg] 84 mm[Hg] APPLE ([facility]) Body height 62 [in_i] 62 [in_i] APPLE ([facility]) Diastolic blood pressure 84 mm[Hg] 84 mm[Hg] APPLE ([facility]) Body height 62 [in_i] 62 [in_i] APPLE ([facility]) Systolic blood pressure 132 mm[Hg] 132 mm[Hg] A THENA ([facility]) Systolic blood pressure 132 mm[Hg] 132 mm[Hg] A THENA ([facility]) Systolic blood pressure 120 mm[Hg] 120 mm[Hg] A THENA ([facility]) Body weight 3024 [oz_av] 3024 [oz_av] APPLE ([facility]) Body height 62 [in_i] 62 [in_i] APPLE ([facility]) Body mass index (BMI) [Ratio] 34.6 kg/m2 34.6 k g/m2 APPLE ([facility]) Diastolic blood pressure 81 mm[Hg] 81 mm[Hg] APPLE ([facility]) Diastolic blood pressure 81 mm[Hg] 81 mm[Hg] APPLE ([facility]) Body height 62 [in_i] 62 [in_i] APPLE ([facility]) Body mass index (BMI) [Ratio] 34.6 kg/m2 34.6 k g/m2 APPLE ([facility]) Systolic blood pressure 120 mm[Hg] 120 mm[Hg] A [facility] ([facility]) Body weight 3024 [oz_av] 3024 [oz_av] APPLE ([facility]) Diastolic blood pressure 81 mm[Hg] 81 mm[Hg] APPLE ([facility]) Body height 62 [in_i] 62 [in_i] APPLE ([facility]) Body mass index (BMI) [Ratio] 34.6 kg/m2 34.6 k g/m2 APPLE ([facility]) Systolic blood pressure 120 mm[Hg] 120 mm[Hg] A THENA ([facility]) Body weight 3024 [oz_av] 3024 [oz_av] APPLE ([facility]) Diastolic blood pressure 81 mm[Hg] 81 mm[Hg] APPLE ([facility]) Body height 62 [in_i] 62 [in_i] APPLE ([facility]) Body mass index (BMI) [Ratio] 34.6 kg/m2 34.6 k g/m2 APPLE ([facility]) Systolic blood pressure 120 mm[Hg] 120 mm[Hg] A THENA ([facility]) Body weight 3024 [oz_av] 3024 [oz_av] APPLE ([facility]) Diastolic blood pressure 81 mm[Hg] 81 mm[Hg] APPLE ([facility]) Body height 62 [in_i] 62 [in_i] APPLE ([facility]) Body mass index (BMI) [Ratio] 34.6 kg/m2 34.6 k g/m2 APPLE ([facility]) Systolic blood pressure 120 mm[Hg] 120 mm[Hg] A THENA ([facility]) Body weight 3024 [oz_av] 3024 [oz_av] APPLE ([facility]) Diastolic blood pressure 74 mm[Hg] 74 mm[Hg] APPLE ([facility]) Body mass index (BMI) [Ratio] 33.8 kg/m2 33.8 k g/m2 APPLE ([facility]) Body weight 185 [lb_av] 185 [lb_av] APPLE ([facility]) Systolic blood pressure 128 mm[Hg] 128 mm[Hg] A THENA ([facility]) Body height 62 [in_i] 62 [in_i] APPLE ([facility]) Diastolic blood pressure 74 mm[Hg] 74 mm[Hg] APPLE ([facility]) Body height 62 [in_i] 62 [in_i] APPLE ([facility]) Body mass index (BMI) [Ratio] 33.8 kg/m2 33.8 k g/m2 APPLE ([facility]) Systolic blood pressure 128 mm[Hg] 128 mm[Hg] A THENA ([facility]) Body weight 185 [lb_av] 185 [lb_av] APPLE ([facility]) Diastolic blood pressure 74 mm[Hg] 74 mm[Hg] APPLE ([facility]) Body height 62 [in_i] 62 [in_i] APPLE ([facility]) Body mass index (BMI) [Ratio] 33.8 kg/m2 33.8 k g/m2 APPLE ([facility]) Systolic blood pressure 128 mm[Hg] 128 mm[Hg] A THENA ([facility]) Body weight 185 [lb_av] 185 [lb_av] APPLE ([facility]) Diastolic blood pressure 74 mm[Hg] 74 mm[Hg] APPLE ([facility]) Body height 62 [in_i] 62 [in_i] APPLE ([facility]) Body mass index (BMI) [Ratio] 33.8 kg/m2 33.8 k g/m2 APPLE ([facility]) Systolic blood pressure 128 mm[Hg] 128 mm[Hg] A THENA ([facility]) Body weight 185 [lb_av] 185 [lb_av] APPLE ([facility]) Diastolic blood pressure 74 mm[Hg] 74 mm[Hg] APPLE ([facility]) Body height 62 [in_i] 62 [in_i] APPLE ([facility]) Body mass index (BMI) [Ratio] 33.8 kg/m2 33.8 k g/m2 APPLE ([facility]) Systolic blood pressure 128 mm[Hg] 128 mm[Hg] A THENA ([facility]) Body weight 185 [lb_av] 185 [lb_av] APPLE ([facility]) Body weight 185 [lb_av] 185 [lb_av] APPLE ([facility]) Diastolic blood pressure 74 mm[Hg] 74 mm[Hg] APPLE ([facility]) Body height 62 [in_i] 62 [in_i] APPLE ([facility]) Body mass index (BMI) [Ratio] 33.8 kg/m2 33.8 k g/m2 APPLE ([facility]) Systolic blood pressure 128 mm[Hg] 128 mm[Hg] A THENA ([facility]) Body weight 185 [lb_av] 185 [lb_av] APPLE ([facility]) Diastolic blood pressure 74 mm[Hg] 74 mm[Hg] APPLE ([facility]) Body height 62 [in_i] 62 [in_i] APPLE ([facility]) Body mass index (BMI) [Ratio] 33.8 kg/m2 33.8 k g/m2 APPLE ([facility]) Systolic blood pressure 128 mm[Hg] 128 mm[Hg] A THENA ([facility]) Body weight 188.4 [lb_av] 188.4 [lb_av] eCW1 ([facility]) Body weight 85.5 kg 85.5 kg eCW1 ([facility]) Body height 62 [in_i] 62 [in_i] eCW1 ([facility]) Body mass index (BMI) [Ratio] 34.46 kg/m2 34.46 kg/m2 eCW1 ([facility]) Heart rate 90 /min 90 /min eCW1 ([facility]) Respiratory rate 18 /min 18 /min eCW1 ([facility]) Body temperature 98.7 [degF] 98.7 [degF] eCW1 ( [facility]) Systolic blood pressure 122 mm[Hg] 122 mm[Hg] e CW1 ([facility]) Diastolic blood pressure 72 mm[Hg] 72 mm[Hg] eCW1 ([facility]) Respiratory rate 16 /min 16 /min MEDENT ( [facility] ) Diastolic blood pressure 80 mm[Hg] 80 mm[Hg] MEDENT ([facility]) Heart rate 78 /min 78 /min MEDENT ([facility] ) Systolic blood pressure 130 mm[Hg] 130 mm[Hg] M EDENT ([facility] ) Diastolic blood pressure 79 mm[Hg] 79 mm[Hg] APPLE ([facility]) Systolic blood pressure 117 mm[Hg] 117 mm[Hg] A THEN ([facility]) Body height 62 [in_i] 62 [in_i] APPLE ([facility]) Body mass index (BMI) [Ratio] 33.7 kg/m2 33.7 k g/m2 APPLE ([facility]) Body weight 2944 [oz_av] 2944 [oz_av] APPLE ([facility]) Diastolic blood pressure 79 mm[Hg] 79 mm[Hg] APPLE ([facility]) Body height 62 [in_i] 62 [in_i] APPLE ([facility]) Body mass index (BMI) [Ratio] 33.7 kg/m2 33.7 k g/m2 APPLE ([facility]) Systolic blood pressure 117 mm[Hg] 117 mm[Hg] A THENA ([facility]) Body weight 2944 [oz_av] 2944 [oz_av] APPLE ([facility]) Body height 62 [in_i] 62 [in_i] APPLE ([facility]) Diastolic blood pressure 79 mm[Hg] 79 mm[Hg] APPLE ([facility]) Body mass index (BMI) [Ratio] 33.7 kg/m2 33.7 k g/m2 APPLE ([facility]) Systolic blood pressure 117 mm[Hg] 117 mm[Hg[facility] Body weight 2944 [oz_av] 2944 [oz_av] APPLE ([facility]) Diastolic blood pressure 79 mm[Hg] 79 mm[Hg] APPLE ([facility]) Body height 62 [in_i] 62 [in_i] APPLE ([facility]) Body mass index (BMI) [Ratio] 33.7 kg/m2 33.7 k g/m2 APPLE ([facility]) Systolic blood pressure 117 mm[Hg] 117 mm[Hg] [facility] Body weight 2944 [oz_av] 2944 [oz_av] APPLE ([facility]) Diastolic blood pressure 79 mm[Hg] 79 mm[Hg] APPLE ([facility]) Body height 62 [in_i] 62 [in_i] APPLE ([facility]) Body mass index (BMI) [Ratio] 33.7 kg/m2 33.7 k g/m2 APPLE ([facility]) Systolic blood pressure 117 mm[Hg] 117 mm[Hg] A THENA ([facility]) Body weight 2944 [oz_av] 2944 [oz_av] APPLE ([facility]) Diastolic blood pressure 79 mm[Hg] 79 mm[Hg] APPLE ([facility]) Body height 62 [in_i] 62 [in_i] APPLE ([facility]) Body mass index (BMI) [Ratio] 33.7 kg/m2 33.7 k g/m2 APPLE ([facility]) Systolic blood pressure 117 mm[Hg] 117 mm[Hg] [facility] Body weight 2944 [oz_av] 2944 [oz_av] APPLE ([facility]) Body weight 187.4 [lb_av] 187.4 [lb_av] eCW1 ([facility]) Body weight 85.0 kg 85.0 kg eCW1 ([facility]) Body height 62 [in_i] 62 [in_i] eCW1 ([facility]) Body mass index (BMI) [Ratio] 34.27 kg/m2 34.27 kg/m2 eCW1 ([facility]) Heart rate 103 /min 103 /min eCW1 ([facility]) Respiratory rate 18 /min 18 /min eCW1 ([facility]) Body temperature 97.9 [degF] 97.9 [degF] eCW1 ( [facility]) Systolic blood pressure 120 mm[Hg] 120 mm[Hg] e CW1 ([facility]) Diastolic blood pressure 74 mm[Hg] 74 mm[Hg] eCW1 ([facility]) Systolic blood pressure 128 mm[Hg] 128 mm[Hg] A THENA ([facility]) Body weight 2947 [oz_av] 2947 [oz_av] APPLE ([facility]) Diastolic blood pressure 83 mm[Hg] 83 mm[Hg] APPLE ([facility]) Body height 62 [in_i] 62 [in_i] APPLE ([facility]) Body mass index (BMI) [Ratio] 33.7 kg/m2 33.7 k g/m2 APPLE ([facility]) Diastolic blood pressure 83 mm[Hg] 83 mm[Hg] APPLE ([facility]) Body height 62 [in_i] 62 [in_i] APPLE ([facility]) Body mass index (BMI) [Ratio] 33.7 kg/m2 33.7 k g/m2 APPLE ([facility]) Systolic blood pressure 128 mm[Hg] 128 mm[Hg] A THENA ([facility]) Body weight 2947 [oz_av] 2947 [oz_av] PAPLE ([facility]) Diastolic blood pressure 83 mm[Hg] 83 mm[Hg] APPLE ([facility]) Body height 62 [in_i] 62 [in_i] APPLE ([facility]) Body mass index (BMI) [Ratio] 33.7 kg/m2 33.7 k g/m2 APPLE ([facility]) Systolic blood pressure 128 mm[Hg] 128 mm[Hg] A THENA ([facility]) Body weight 2947 [oz_av] 2947 [oz_av] APPLE ([facility]) Diastolic blood pressure 83 mm[Hg] 83 mm[Hg] APPLE ([facility]) Body height 62 [in_i] 62 [in_i] APPLE ([facility]) Body mass index (BMI) [Ratio] 33.7 kg/m2 33.7 k g/m2 APPLE ([facility]) Systolic blood pressure 128 mm[Hg] 128 mm[Hg[facility] Body weight 2947 [oz_av] 2947 [oz_av] APPLE ([facility]) Diastolic blood pressure 83 mm[Hg] 83 mm[Hg] APPLE ([facility]) Body height 62 [in_i] 62 [in_i] APPLE ([facility]) Body mass index (BMI) [Ratio] 33.7 kg/m2 33.7 k g/m2 APPLE ([facility]) Systolic blood pressure 128 mm[Hg] 128 mm[Hg] A THENA ([facility]) Body weight 2947 [oz_av] 2947 [oz_av] APPLE ([facility]) Diastolic blood pressure 83 mm[Hg] 83 mm[Hg] APPLE ([facility]) Body height 62 [in_i] 62 [in_i] APPLE ([facility]) Body mass index (BMI) [Ratio] 33.7 kg/m2 33.7 k g/m2 APPLE ([facility]) Systolic blood pressure 128 mm[Hg] 128 mm[Hg] A THENA ([facility]) Body weight 2947 [oz_av] 2947 [oz_av] APPLE ([facility]) Diastolic blood pressure 83 mm[Hg] 83 mm[Hg] APPLE ([facility]) Body height 62 [in_i] 62 [in_i] APPLE ([facility]) Body mass index (BMI) [Ratio] 33.7 kg/m2 33.7 k g/m2 APPLE ([facility]) Systolic blood pressure 128 mm[Hg] 128 mm[Hg] A SAMY ([facility]) Body weight 2947 [oz_av] 2947 [oz_av] APPLE ([facility]) Diastolic blood pressure 83 mm[Hg] 83 mm[Hg] APPLE ([facility]) Body height 62 [in_i] 62 [in_i] APPLE ([facility]) Body mass index (BMI) [Ratio] 33.7 kg/m2 33.7 k g/m2 APPLE ([facility]) Systolic blood pressure 128 mm[Hg] 128 mm[Hg] A SAMY ([facility]) Body weight 2947 [oz_av] 2947 [oz_av] APPLE ([facility]) Heart rate 106 /min 106 /min MEDENT ([facility]) Respiratory rate 16 /min 16 /min MEDENT ( [facility], [facility]) Oxygen saturation in Arterial blood by Pulse oximetry 99 % 99 % [facility], [facility]) Body temperature 98.0 [degF] 98.0 [degF] MEDENT ([facility], [facility]) Body weight 176.00 [lb_av] 176.00 [lb_av] MEDEN T ([facility], [facility]) Body height 63 [in_i] 63 [in_i] MEDENT ([facility], [facility]) 5'3" Body mass index (BMI) [Ratio] 31.2 kg/m2 31.2 k g/m2 MEDENT ([facility], [facility]) Systolic blood pressure 123 mm[Hg] 123 mm[Hg] M EDENT ([facility], [facility]) Diastolic blood pressure 83 mm[Hg] 83 mm[Hg] MEDENT ([facility], [facility]) Patient Treatment Plan of Care Planned Activity Planned Date Details Description Data Source (s) Diclofenac Sodium 0.01 MG/MG Topical Gel [Voltaren] 03/30/20 12:00:00 AM EDT eCW1 ([facility]) Diclofenac Sodium 0.01 MG/MG Topical Gel [Voltaren] 03/30/20 12:00:00 AM EDT eCW1 ([facility]) Diclofenac Sodium 0.01 MG/MG Topical Gel [Voltaren] 03/30/20 12:00:00 AM EDT eCW1 ([facility]) Ergocalciferol 22021 UNT Oral Capsule 12/25/2020 12:00:00 AM EDT eCW1 ([facility]) celecoxib 200 MG Oral Capsule 11/09/2020 12:00:00 AM EDT eCW1 ([facility]) celecoxib 200 MG Oral Capsule 11/09/2020 12:00:00 AM EDT eCW1 ([facility]) Citric Acid 66.8 MG/ML / sodium citrate 100 MG/ML Oral Solution [place] ([facility]) pregabalin 50 MG Oral Capsule [place] ([facility]) Prednisone 20 MG Oral Tablet APPLE ([facility]) Prednisone 10 MG Oral Tablet [place] ([facility]) Citric Acid 66.8 MG/ML / potassium citra te 110 MG/ML / sodium citrate 100 MG/ML Oral Solution [place] ([facility]) methylprednisolone 4 mg tablets in a dose pack USE DIRECTED [place] ([facility]) latanoprost 0.05 MG/ML [place]mic [place]) Fluzone Quad (PF) 60 mcg (15 mcg x 4)/0.5 mL IM syringe [place] ([facility]) fluticasone propionate 50 mcg/actuation nasal spray,suspension [place] ([facility]) Fluconazole 150 MG Oral Tablet [facility]) Cephalexin 500 MG Oral Capsule [place] ([facility]) Citric Acid 66.8 MG/ML / sodium citrate 100 MG/ML Oral Solution [place] ([facility]) pregabalin 50 MG Oral Capsule [facility] ([facility]) Prednisone 20 MG Oral Tablet [facility] ([facility]) methylprednisolone 4 mg tablets in a dose pack USE DIRECTED [facility] ([facility]) latanoprost 0.05 MG/ML Ophthalmic Solution [facility] ([facility]) Cyclobenzaprine hydrochloride 10 MG Oral Tablet [facility] ([facility]) Prednisone 20 MG Oral Tablet [facility] ([facility]) methylprednisolone 4 mg tablets in a dose pack USE DIRECTED [facility] ([facility]) Cephalexin 500 MG Oral Capsule [facility] ([facility]) Prednisone 20 MG Oral Tablet [facility] ([facility]) Prednisone 20 MG Oral Tablet [facility] ([facility]) Citric Acid 66.8 MG/ML / sodium citrate 100 MG/ML Oral Solution [facility] ([facility]) Prednisone 20 MG Oral Tablet [facility] ([facility]) Prednisone 10 MG Oral Tablet [facility] ([facility]) potassium citrate 10 MEQ Extended Release Oral Tablet [facility] ([facility]) Fluzone Quad 1009-1196 (PF) 60 mcg (15 mcg x 4)/0.5 mL IM syringe [facility] ([facility]) fluticasone propionate 50 mcg/actuation nasal spray,suspension [facility] ([facility]) Fluconazole 150 MG Oral Tablet [facility] ([facility]) Cephalexin 500 MG Oral Capsule [facility] ([facility]) Citric Acid 66.8 MG/ML / sodium citrate 100 MG/ML Oral Solution [facility] ([facility]) Prednisone 20 MG Oral Tablet [facility] ([facility]) Prednisone 10 MG Oral Tablet [facility] ([facility]) potassium citrate 10 MEQ Extended Release Oral Tablet [facility] ([facility]) fluticasone propionate 50 mcg/actuation nasal spray,suspension [facility] ([facility]) Fluconazole 150 MG Oral Tablet [facility] ([facility]) Cephalexin 500 MG Oral Capsule [facility] ([facility]) Citric Acid 66.8 MG/ML / sodium citrate 100 MG/ML Oral Solution [facility] ([facility]) Prednisone 20 MG Oral Tablet [facility] ([facility]) Prednisone 10 MG Oral Tablet [facility] ([facility]) potassium citrate 10 MEQ Extended Release Oral Tablet [facility] ([facility]) fluticasone propionate 50 mcg/actuation nasal spray,suspension [facility] ([facility]) Fluconazole 150 MG Oral Tablet [facility] ([facility]) Cephalexin 500 MG Oral Capsule [facility] ([facility]) Cyclobenzaprine hydrochloride 10 MG Oral Tablet [facility] ([facility]) tizanidine 4 MG Oral Tablet [facility] ([facility]) Citric Acid 66.8 MG/ML / sodium citrate 100 MG/ML Oral Solution [facility] ([facility]) Prednisone 20 MG Oral Tablet [facility] ([facility]) Prednisone 10 MG Oral Tablet [facility] ([facility]) Citric Acid 66.8 MG/ML / potassium citra te 110 MG/ML / sodium citrate 100 MG/ML Oral Solution [facility] ([facility]) [facility] 4 [facility] Fluzone Quad (PF) 60 mcg (15 mcg x 4)/0.5 mL IM syringe [facility] ([facility]) fluticasone propionate 50 mcg/actuation nasal spray,suspension [facility] ([facility]) Fluconazole 150 MG Oral Tablet [facility] ([facility]) Cephalexin 500 MG Oral Capsule [facility] ([facility]) tizanidine 4 MG Oral Tablet [facility] ([facility]) Citric Acid 66.8 MG/ML / sodium citrate 100 MG/ML Oral Solution [facility] ([facility]) Prednisone 20 MG Oral Tablet [facility] ([facility]) Prednisone 10 MG Oral Tablet [facility] ([facility]) Citric Acid 66.8 MG/ML / potassium citra te 110 MG/ML / sodium citrate 100 MG/ML Oral Solution [facility] ([facility]) methylprednisolone 4 mg tablets in a dose pack USE DIRECTED [facility] ([facility]) Fluzone Quad (PF) 60 mcg (15 mcg x 4)/0.5 mL IM syringe [facility] ([facility]) fluticasone propionate 50 mcg/actuation nasal spray,suspension [facility]) Fluconazole 150 MG Oral Tablet [facility] ([facility]) Cephalexin 500 MG Oral Capsule [facility] ([facility]) tizanidine 4 MG Oral Tablet [facility] ([facility]) Citric Acid 66.8 MG/ML / sodium citrate 100 MG/ML Oral Solution [facility] ([facility]) Prednisone 20 MG Oral Tablet [facility] ([facility]) Prednisone 10 MG Oral Tablet [facility] ([facility]) Citric Acid 66.8 MG/ML / potassium citra te 110 MG/ML / sodium citrate 100 MG/ML Oral Solution [facility] ([facility]) methylprednisolone 4 mg tablets in a dose pack USE DIRECTED [facility] ([facility]) Fluzone Quad (PF) 60 mcg (15 mcg x 4)/0.5 mL IM syringe [facility] ([facility]) fluticasone propionate 50 mcg/actuation nasal spray,suspension [facility] ([facility]) Fluconazole 150 MG Oral Tablet [facility] ([facility]) Cephalexin 500 MG Oral Capsule [facility] ([facility]) Prednisone 20 MG Oral Tablet [facility] ([facility]) Prednisone 20 MG Oral Tablet [facility] ([facility]) Prednisone 20 MG Oral Tablet [facility] ([facility]) Citric Acid 66.8 MG/ML / sodium citrate 100 MG/ML Oral Solution [facility] ([facility]) Prednisone 20 MG Oral Tablet [facility] ([facility]) Prednisone 10 MG Oral Tablet [facility] ([facility]) potassium citrate 10 MEQ Extended Release Oral Tablet [facility] ([facility]) Fluzone Quad (PF) 60 mcg (15 mcg x 4)/0.5 mL IM syringe [facility] ([facility]) fluticasone propionate 50 mcg/actuation nasal spray,suspension [facility] ([facility]) Fluconazole 150 MG Oral Tablet [facility] ([facility])
[2021-06-02] MEDS ORDERED: MIDAZOLAM INJ 2MG/2ML VIAL (J2250 PER 1MG) As Ordered ONE (08:51)
[2021-06-02] MEDS ORDERED: LIDOCAINE 2% 100MG/5ML SDV (FOR ANES.) As Ordered ONE (08:52)
[2021-06-02] MEDS ORDERED: propofoL 200 MG/20 ML VIAL As Ordered ONE (08:52)
[2021-06-02] MEDS ORDERED: fentaNYL 100 MCG/2 ML INJECTION (J3010) As Ordered ONE (08:52)
[2021-06-02] MEDS ORDERED: ONDANSETRON 4MG/2ML VIAL As Ordered ONE (08:58)
[2021-06-02] MEDS ORDERED: dexameTHASONE 4 MG/ML 1ML VIAL (J1100 PER 1MG) As Ordered ONE ×2 (08:58→09:10)
[2021-06-02] MEDS ORDERED: BUPIVACAINE HCL 0.5% 10ML VIAL As Ordered ONE (09:10)
[2021-06-02] MEDS ORDERED: LIDOCAINE 1% MDV 20ML VIAL As Ordered ONE (09:10)
[2021-06-02] MEDS ORDERED: ACETAMINOPHEN 1000MG 100ML IV BTL (OFIRMEV) (J0131 PER 10MG) As Ordered ONE ×2 (09:13→09:46)
[2021-06-02] MEDS ORDERED: HYDR-3713 PO (11:07)
[2021-06-02] MEDS ORDERED: ONDA4TAB6 PO (11:07)
[2021-06-02] MEDS ORDERED: ONDANSETRON 4MG/2ML VIAL IV PRN (11:35)
[2021-06-02] MEDS ORDERED: oxyCODONE 5MG TAB PO PRN (11:35)
[2021-06-02] MEDS ORDERED: LR 1,000 ML IV SCH (11:35)
[2021-06-02] MEDS ORDERED: fentaNYL 100 MCG/2 ML INJECTION (J3010) IV PRN (11:35)
[2021-06-02 12:37] VITALS: BP 126/80
--- NOTE | 2021-06-02 13:53 | RO ---
OPERATIVE NOTE DATE OF OPERATION: 06/02/2021 PREOPERATIVE DIAGNOSIS: Right foot bunion. POSTOPERATIVE DIAGNOSIS: Right foot bunion. PROCEDURE: Right foot [place] bunionectomy. SURGEON: Xavi Nowak DPM ADVERTISING LAYOUT WORKER: None. ANESTHESIA: General LMA anesthesia, preop injection of 20 mL of 1:1 mixture of 1% Lidocaine plain and 0.5% Marcaine plain. ESTIMATED BLOOD LOSS: Minimal. MATERIALS: [employer] Lapiplasty System 2, 3-0 and 4-0 Vicryl, 4-0 nylon. INJECTABLES: None. COMPLICATIONS: None. CONDITION: Stable. INDICATIONS: Olena Paz is a 41-year-old female who presents to [facility] with painful bunions. Presents today for surgical correction. The patient site and side were identified and marked in preoperative holding area. Consent was reviewed and obtained. All risks, complications, and alternatives to the procedure were explained to the patient in detail, all questions were answered. DESCRIPTION OF PROCEDURE: The patient was brought to the operating room and placed o the table in the supine position. General LMA anesthesia was delivered by the anesthesia team. Preop injection of 20 mL of 1:1 mixture of 1% Lidocaine plain and 0.5% Marcaine plain were injected into the right ankle. The right foot was prepped and draped in sterile fashion. Tourniquet was applied to the right ankle and inflated at 220 mmHg. Dorsal incision was drawn over the 1st metatarsocuneiform and carried through with #15 blade. Dissection was carried to the left tarsophalangeal joint. Capsulotomy was performed exposing the metatarsal head. Following this a lateral release was performed releasing the adductor tendon, lateral capsule and sesamoidal ligaments. Attention was then paid to the metatarsocuneiform joint. Transverse capsulotomy was performed. The soft tissue attachments surrounding the joint were released. [place] was used to release the plantar ligaments from the joint. Guidewire was inserted at the base of the metatarsal which allowed for frontal plane rotation. The joint seeker was inserted. Stab incision was made over the 2nd metatarsal allowing the metatarsal compressor to be applied. Under C-arm guidance the intermetatarsal angle was reduced with the metatarsal compressor. The cut guide was applied and secured in place and the cartilage of the cuneiform and base of the 1st metatarsal were resected with the sagittal saw. Joint surfaces were fenestrated with drill. Metatarsal compressor was applied and the joint was compressed with good compression achieved at the 1st metatarsophalangeal joint and good position maintained as verified on C-arm. Two locking plates, one dorsal and one medial were applied with four screws each to secure the joint in place. Medial eminence of the metatarsal head was resected with sagittal saw. Site was irrigated with normal saline. Capsular repair was performed with 3-0 Vicryl, subcutaneous closure with 4-0 Vicryl and skin closure with 4-0 nylon. Sterile dressings were applied. Tourniquet was deflated; patient was brought to PACU with vital signs stable and neurovascular status intact. She will be nonweightbearing. She will follow up in the office in two days.
--- NOTE | 2021-06-02 16:32 | REP ---
INDICATION: RIGHT FOOT LAPIDUS BUNIIONECTOMY. COMPARISON: None. TECHNIQUE: Fluoroscopy provided intraoperatively. FINDINGS: Fluoroscopy provided intraoperatively. No images were obtained. IMPRESSION: 53 seconds fluoroscopy time utilized. <Electronically signed by Christian Maldonado > 06/02/21 1875
== END 2021-06-02 14:03 | disposition home or self-care (01) ==
LOC: M SDC 07:38
PROVIDERS: ATTEND Podiatrist Foot & Ankle Surgery
DX: M21.611 Bunion of right foot (principal)
CPT/HCPCS: 28297; 76000; 88300; C1713; J0131; J0690; J1100; J2250; J2405; J3010

== ENCOUNTER → 2021-07-16 | Outpatient (CLI) | payer OTHER ==
[~2021-07-16] MED LIST changes: +HYDR-3713 PO; -LR 1,000 ML IV ONE; +ONDA4TAB6 PO; -ceFAZolin SOD 2 GM in IV 1 EA IV ONE
== END ==
LOC: M LAB 10:05
PROVIDERS: ATTEND Internal Medicine
DX: E55.9 Vitamin D deficiency, unspecified (principal)

== ENCOUNTER → 2022-01-17 | Outpatient (CLI) | payer OTHER | LOC: M LAB 15:59 | PROVIDERS: ATTEND Internal Medicine | DX: E55.9 Vitamin D deficiency, unspecified (principal) ==

== ENCOUNTER → 2022-02-20 | Outpatient (CLI) | payer OTHER ==
[~2022-02-20] MED LIST changes: +GING250C PO; +TURM500T PO
== END ==
LOC: M LABSMTC 10:23
PROVIDERS: ATTEND Anesthesiology
DX: Z01.812 Encounter for preprocedural laboratory examination (principal); Z20.822 Contact with and (suspected) exposure to COVID-19

== ENCOUNTER 2022-02-23 07:17 | Day surgery (SDC) | payer OTHER ==
[~2022-02-23] VITALS: Ht 160 cm; Wt 83.5 kg
[~2022-02-23 07:17] MED LIST changes: +ceFAZolin SOD 2 GM in IV 1 EA IV ONE
[2022-02-23] MEDS ORDERED: ceFAZolin 2 GM/D5W 50 ML IV BAG (J0690 PER 500MG) As Ordered ONE (07:54)
[2022-02-23] MEDS ORDERED: LIDOCAINE 2% 100MG/5ML SDV (FOR ANES.) As Ordered ONE (07:56)
[2022-02-23] MEDS ORDERED: propofoL 200 MG/20 ML VIAL As Ordered ONE (07:56)
[2022-02-23] MEDS ORDERED: MIDAZOLAM INJ 2MG/2ML VIAL (J2250 PER 1MG) As Ordered ONE (08:35)
[2022-02-23] MEDS ORDERED: fentaNYL 100 MCG/2 ML INJECTION As Ordered ONE (08:36)
[2022-02-23] MEDS ORDERED: LIDOCAINE 1% SDV 30ML VIAL As Ordered ONE (08:37)
[2022-02-23] MEDS ORDERED: BUPIVACAINE HCL 0.5% 30ML VIAL As Ordered ONE (08:38)
[2022-02-23 10:00] VITALS: BP 120/69
== END 2022-02-23 10:06 | disposition home or self-care (01) ==
LOC: M SDC 07:17
PROVIDERS: ATTEND Podiatrist Foot & Ankle Surgery
DX: T84.84XA Pain due to internal orthopedic prosthetic devices, implants and grafts, initial encounter (principal); M89.8X7 Other specified disorders of bone, ankle and foot; G43.909 Migraine, unspecified, not intractable, without status migrainosus; J45.909 Unspecified asthma, uncomplicated; Z79.899 Other long term (current) drug therapy; Z88.8 Allergy status to other drugs, medicaments and biological substances
CPT/HCPCS: 20680; 28104; 88304; 88311; J0690; J2250; J3010

== ENCOUNTER 2023-07-21 10:29 | Emergency (ER) | payer OTHER ==
[~2023-07-21] VITALS: Ht 160 cm; Wt 82.3 kg
[~2023-07-21 10:29] MED LIST changes: +CELE0.09 PO; -CELE1CAP9 PO; +DICL100G10; +DICL100G10 TOP; -DICL1GEL3; -DICL1GEL3 TOP; -ceFAZolin SOD 2 GM in IV 1 EA IV ONE
[2023-07-21] MEDS ORDERED: NITR-67 PO (10:36)
[2023-07-21 11:42] LABS: BASO # 0.1 10^3/uL (0.0-0.2); BASO % 0.3 % (0.0-1.0); EOS % 0.1 % (0.0-3.0); HEMATOCRIT 42.6 % (36.0-47.0); HEMOGLOBIN 14.6 g/dl (12.0-15.5); LYMPH # 0.6 10^3/uL (1.5-5.0); LYMPH % 3.6 % (24.0-44.0); MEAN CORPUSCULAR HEMOGLOBIN 29.9 pg (27.0-33.0); MEAN CORPUSCULAR HGB CONC 34.3 g/dl (32.0-36.5); MEAN CORPUSCULAR VOLUME 87.1 fl (80.0-96.0); MONO # 0.8 10^3/uL (0.0-0.8); MONO % 4.8 % (2.0-8.0); NEUTROPHILS # 14.2 10^3/uL (1.5-8.5); NEUTROPHILS % 90.8 % (36.0-66.0); PLATELET COUNT, AUTOMATED 224 10^3/uL (150-450); RED BLOOD COUNT 4.89 10^6/uL (4.00-5.40); WHITE BLOOD COUNT 15.7 10^3/uL (4.0-10.0)
[2023-07-21 12:11] LABS: ALBUMIN 4.5 G/DL (3.2-5.2); BILIRUBIN,DIRECT 0.1 MG/DL (<0.4); BILIRUBIN,TOTAL 0.6 MG/DL (0.3-1.2); TOTAL PROTEIN 7.9 G/DL (5.7-8.2)
[2023-07-21 12:19] LABS: RSV AMPLIFICATION NEGATIVE (NEGATIVE)
[2023-07-21] MEDS ORDERED: NS 1,000 ML IV ONE (12:50)
[2023-07-21] MEDS ORDERED: ACETAMINOPHEN 325 MG TAB PO ONE (12:50)
[2023-07-21] MEDS ORDERED: cefTRIAXone SOD 1 GM in D5W MINI-BAG PLUS 50 ML IV ONE (12:50)
[2023-07-21 13:57] VITALS: BP 121/78; TEMP 99.9; O2SAT 99
[2023-07-21] MEDS ORDERED: CEPH500C PO (14:43)
== END 2023-07-21 14:50 | disposition home or self-care (01) ==
LOC: M ED 10:29
DX: J02.0 Streptococcal pharyngitis (principal); R30.0 Dysuria; Z91.048 Other nonmedicinal substance allergy status; Z88.8 Allergy status to other drugs, medicaments and biological substances; Z79.1 Long term (current) use of non-steroidal anti-inflammatories (NSAID); Z79.899 Other long term (current) drug therapy; Z79.810 Long term (current) use of selective estrogen receptor modulators (SERMs)
CPT/HCPCS: 36415; 74176; 80047; 80076; 81001; 83605; 83690; 84702; 85025; 87040; 87631; 87880; 99284; J0696

== ENCOUNTER → 2023-10-23 | Outpatient (CLI) | payer OTHER ==
[~2023-10-23] MED LIST changes: +CEPH500C PO; +NITR-67 PO
[2023-10-23 16:05] LABS: ALBUMIN 4.1 G/DL (3.2-5.2); ALKALINE PHOSPHATASE 69 U/L (46-116); ALT/SGPT 15 U/L (7.0-40); AST/SGOT 17 U/L (<34); BILIRUBIN,DIRECT 0.1 MG/DL (<0.4); BILIRUBIN,TOTAL 0.5 MG/DL (0.3-1.2); BLOOD UREA NITROGEN 17 MG/DL (9-23); CALCIUM LEVEL 9.6 MG/DL (8.5-10.1); CARBON DIOXIDE LEVEL 26 MMOL/L (20-31); CHLORIDE LEVEL 104 MMOL/L (98-107); CREATININE FOR GFR 0.67 MG/DL (0.55-1.30); GLOMERULAR FILTRATION RATE > 60.0 (>58); GLUCOSE, FASTING 84 MG/DL (60-100); POTASSIUM SERUM 3.5 MMOL/L (3.5-5.1); SODIUM LEVEL 140 MMOL/L (136-145); TOTAL PROTEIN 7.6 G/DL (5.7-8.2)
[2023-10-23 16:07] LABS: TOTAL 25(OH) VITAMIN D 14.1 NG/ML (20.0-100.0)
== END ==
LOC: M LAB 15:09
PROVIDERS: ATTEND Internal Medicine
DX: E55.9 Vitamin D deficiency, unspecified (principal); Z79.1 Long term (current) use of non-steroidal anti-inflammatories (NSAID)

== ENCOUNTER → 2024-04-19 | Outpatient (REF) | payer OTHER ==
[~2024-04-19] MED LIST changes: +ONDA-282 PO; -ONDA4TAB6 PO
== END ==
LOC: M LAB REF 12:05
PROVIDERS: ATTEND Family Medicine Addiction Medicine
DX: R35.0 Frequency of micturition (principal)

== ENCOUNTER → 2024-07-11 | Outpatient (REF) | payer OTHER ==
[~2024-07-11] MED LIST changes: +POTA10807 PO; -POTA10808 PO; -POTA540T PO; +POTA540T5 PO
== END ==
LOC: M LAB REF 12:09
PROVIDERS: ATTEND Physician Assistant
DX: R30.0 Dysuria (principal)

== ENCOUNTER → 2024-07-23 | Outpatient (REF) | payer OTHER | LOC: M SFHCRHEU 15:34 | PROVIDERS: ATTEND Internal Medicine | DX: E55.9 Vitamin D deficiency, unspecified (principal) ==

== ENCOUNTER 2024-10-25 04:57 | Emergency (ER) | payer OTHER ==
[~2024-10-25] VITALS: Ht 160 cm; Wt 86.2 kg
[2024-10-25 05:22] LABS: KETONE, URINE AUTO RFX NEGATIVE (NEGATIVE); LEUKOCYTE ESTERASE UR AUTO RFX NEGATIVE (NEGATIVE); MUCUS, URINE RFX SMALL (NEGATIVE); NITRITE, URINE AUTO RFX NEGATIVE (NEGATIVE); RBC, URINE AUTO RFX 1 /HPF (0-3); SQUAM EPITHELIAL CELL UR AURFX 7 /HPF (0-6); WBC, URINE AUTO RFX 0 /HPF (0-3)
[2024-10-25 06:51] LABS: BASO # 0.1 10^3/uL (0.0-0.2); BASO % 0.9 % (0.0-1.0); EOS # 0.4 10^3/uL (0.0-0.5); HEMATOCRIT 43.3 % (36.0-47.0); HEMOGLOBIN 14.6 g/dl (12.0-15.5); LYMPH # 1.8 10^3/uL (1.5-5.0); LYMPH % 32.8 % (24.0-44.0); MEAN CORPUSCULAR HEMOGLOBIN 29.7 pg (27.0-33.0); MEAN CORPUSCULAR HGB CONC 33.7 g/dl (32.0-36.5); MONO # 0.5 10^3/uL (0.0-0.8); MONO % 9.5 % (2.0-8.0); NEUTROPHILS # 2.7 10^3/uL (1.5-8.5); NEUTROPHILS % 49.6 % (36.0-66.0); PLATELET COUNT, AUTOMATED 273 10^3/uL (150-450); RED BLOOD COUNT 4.92 10^6/uL (4.00-5.40); WHITE BLOOD COUNT 5.5 10^3/uL (4.0-10.0)
[2024-10-25 07:16] LABS: LIPASE 29 U/L (12-53)
[2024-10-25 07:19] LABS: ALBUMIN 4.2 G/DL (3.2-5.2); ALKALINE PHOSPHATASE 77 U/L (35-104); ALT/SGPT 20 U/L (7.0-40); AST/SGOT 18 U/L (<34); BILIRUBIN,DIRECT 0.1 MG/DL (<0.4); BILIRUBIN,TOTAL 0.4 MG/DL (0.3-1.2); BLOOD UREA NITROGEN 17 MG/DL (9-23); CALCIUM LEVEL 9.5 MG/DL (8.5-10.1); CARBON DIOXIDE LEVEL 24 MMOL/L (20-31); CHLORIDE LEVEL 107 MMOL/L (98-107); CREATININE FOR GFR 0.62 MG/DL (0.55-1.30); GLOMERULAR FILTRATION RATE > 90.0 (>58); GLUCOSE, FASTING 115 MG/DL (60-100); POTASSIUM SERUM 4.7 MMOL/L (3.5-5.1); SODIUM LEVEL 139 MMOL/L (136-145); TOTAL PROTEIN 7.6 G/DL (5.7-8.2)
[2024-10-25 07:21] LABS: HCG, SERUM QUALITATIVE NEGATIVE (NEGATIVE)
[2024-10-25] MEDS ORDERED: ISOVUE-370 76% 100ML VIAL As Ordered ONE (07:39)
[2024-10-25] MEDS: NS 500 ML IV ONE (08:11)
[2024-10-25] MEDS: ACETAMINOPHEN *IV* 1,000 MG in IV 1 EA IV ONE (08:12)
[2024-10-25] MEDS ORDERED: CYCL-707 PO (08:39)
[2024-10-25 08:45] VITALS: BP 117/76; TEMP 97.8
[2024-10-25 08:49] VITALS: O2SAT 100
== END 2024-10-25 08:58 | disposition home or self-care (01) ==
LOC: M ED 04:57
DX: M54.9 Dorsalgia, unspecified (principal); M62.830 Muscle spasm of back; Q61.5 Medullary cystic kidney; Z87.442 Personal history of urinary calculi; Z87.448 Personal history of other diseases of urinary system; G43.909 Migraine, unspecified, not intractable, without status migrainosus; F41.9 Anxiety disorder, unspecified; Z79.899 Other long term (current) drug therapy; Z88.2 Allergy status to sulfonamides; Z91.89 Other specified personal risk factors, not elsewhere classified; Z88.8 Allergy status to other drugs, medicaments and biological substances
CPT/HCPCS: 74178; 80048; 80076; 81001; 83690; 84703; 85025; 93041; 96365; 99284; J0131; Q9967

== ENCOUNTER → 2025-01-27 | Outpatient (REF) | payer OTHER ==
[2025-01-27 16:55] LABS: ALT/SGPT 18 U/L (7.0-40); AST/SGOT 19 U/L (<34); CALCIUM LEVEL 9.5 MG/DL (8.5-10.1); CARBON DIOXIDE LEVEL 24 MMOL/L (20-31); CHLORIDE LEVEL 103 MMOL/L (98-107); CHOLESTEROL LEVEL 200 MG/DL (<200); CHOLESTEROL RISK RATIO 4.00 (<5); CREATININE FOR GFR 0.62 MG/DL (0.55-1.30); GLOMERULAR FILTRATION RATE > 90.0 (>58); LDL CHOLESTEROL 108.4 MG/DL (<100); NON-HDL-C 150.0 MG/DL; POTASSIUM SERUM 3.8 MMOL/L (3.5-5.1); SODIUM LEVEL 138 MMOL/L (136-145); TRIGLYCERIDES LEVEL 208 MG/DL (<150)
[2025-01-27 16:57] LABS: TOTAL 25(OH) VITAMIN D 34.5 NG/ML (20.0-100.0)
== END ==
LOC: M LAB REF 16:23
PROVIDERS: ATTEND Family Medicine Addiction Medicine
DX: E55.9 Vitamin D deficiency, unspecified (principal); Z68.35 Body mass index [BMI] 35.0-35.9, adult

== ENCOUNTER 2025-05-16 15:03 | Emergency (ER) | payer OTHER ==
[~2025-05-16] VITALS: Ht 157.5 cm; Wt 91.4 kg
[~2025-05-16 15:03] MED LIST changes: -GABA-1172 PO
[2025-05-16] MEDS: ACETAMINOPHEN 325 MG TAB PO ONE (17:07)
[2025-05-16] MEDS ORDERED: GABA-1172 PO (19:35)
[2025-05-16 19:44] VITALS: BP 142/97; TEMP 97.3; O2SAT 98
== END 2025-05-16 19:48 | disposition home or self-care (01) ==
LOC: M ED 15:03
DX: M51.24 Other intervertebral disc displacement, thoracic region (principal); M51.26 Other intervertebral disc displacement, lumbar region; I95.9 Hypotension, unspecified; J45.909 Unspecified asthma, uncomplicated; G43.909 Migraine, unspecified, not intractable, without status migrainosus; E66.9 Obesity, unspecified; R93.422 Abnormal radiologic findings on diagnostic imaging of left kidney; Z79.899 Other long term (current) drug therapy; Z88.2 Allergy status to sulfonamides; Z88.8 Allergy status to other drugs, medicaments and biological substances; Z91.89 Other specified personal risk factors, not elsewhere classified

== ENCOUNTER → 2025-05-16 | Outpatient (REF) | payer OTHER ==
[~2025-05-16] MED LIST changes: +GABA-1172 PO
== END ==
LOC: M LAB REF 16:28
PROVIDERS: ATTEND Family Medicine Addiction Medicine
DX: R39.9 Unspecified symptoms and signs involving the genitourinary system (principal)

== ENCOUNTER → 2025-06-13 | Outpatient (CLI) | payer OTHER ==
[~2025-06-13] MED LIST changes: +GABA-1172 PO
== END ==
LOC: M WHC 14:24
PROVIDERS: ATTEND Family Medicine Addiction Medicine
DX: N28.1 Cyst of kidney, acquired (principal)